=== PATIENT | male | born 1940 | race Caucasian/White ===

== ENCOUNTER 2016-08-02 05:47 | Inpatient (IN) | payer OTHER, MEDICARE ==
--- NOTE | 2016-08-01 08:48 | HPE ---
DATE OF ADMISSION: 08/02/2016 ADMISSION DIAGNOSES: Back pain and pain down both legs, left greater than the right. ATTENDING PHYSICIAN: Dr. Mata HISTORY: This is a pleasant 76-year-old male patient with progressively worsening back pain and pain radiating to both lower extremities, left greater than the right. He has pain with activities of daily living. If he walks any distance he has increased symptoms in both lower extremities. He has tried numerous medications without much improvement. He continues to take gabapentin. He has been through epidural steroid injections and pain blocks without much improvement. Therapy has failed to improve his symptoms. He has elected for surgery for his continued symptoms. He has consented for a left unilateral laminectomy L4-5 and posterior fusion in situ L4-[address] Mata. MRI of his lumbar spine notable for spinal stenosis, particularly at L4-5 with spondylolisthesis at L4-5. Diffuse degenerative changes throughout the lumbar spine also noted. There is some lateral recess spinal stenosis particularly at L4-5 as well on the MRI. Medical optimization pending with his primary, Xiao Zepeda. He also had a cardiology clearance done as well, it is not present for review today. ALLERGIES: BUSPAR and ARAVA. CURRENT MEDICATIONS: - Celebrex 200 mg one tablet once per day - Flonase 50 mcg two sprays as needed in his nose - Lyrica 75 mg one tablet twice a day - gabapentin 300 mg two tablets at bedtime - Combivent inhaler at two puffs up to four times a day as needed - Eliquis 5 mg one tablet twice a day, discontinue that 4 days prior to surgery - atorvastatin 40 mg one tablet once per day - calcium 600 mg one tablet twice a day - Invokana 100 mg one tablet once per day - Zyrtec 10 mg one tablet daily as needed - Hydroxychloroquine 200 mg one tablet once per day - insulin Detemir 100 units per mL, 15 units subcutaneous daily - lisinopril 10 mg one tablet once per day - metformin 500 mg two tablets twice a day - Pantoprazole 40 mg one tablet once per day - prednisone 1 mg one tablet three times a day - Zantac 75 mg one tablet per day as needed - Advair inhaler 230/21 mcg two puffs daily He also takes numerous eye drops that he will bring with him to the hospital. MEDICAL HISTORY: 1. Atrial fibrillation. 2. Atrial flutter. 3. Right bundle branch block. 4. Obesity. 5. Diabetes type 2. 6. Elevated cholesterol. 7. Sleep apnea. 8. Chronic obstructive pulmonary disease (COPD). 9. Lumbar spinal stenosis L4-5 10. Bilateral neurogenic claudication, left greater than the right. PRIOR SURGERY: Includes: 1. Carpal tunnel release. 2. Hemorrhoidectomy. 3. Rotator cuff surgery. 4. Left finger trigger release. 5. Ventral hernia repair. 6. Skin cancer excision. FAMILY HISTORY: Noncontributory. REVIEW OF SYSTEMS: Denies fever or chills. Denies chest pain, shortness breath or cough. Denies difficulty breathing. Denies abdominal pain. Denies nausea or vomiting. Has persistent pain to both lower extremities, left greater than the right. Denies any changes in bowel or bladder habits. PHYSICAL EXAMINATION: Today, reveals a well-nourished, well-developed, alert, male patient who walks with a slow gait. His gait is not wide-based. His mood and affect are appropriate for the situation. His neck is supple without adenopathy or jugular venous distention (JVD). Lungs are clear to auscultation without rales or wheeze. Heart has regular rate and rhythm. Abdomen: Bowel sounds are present. Examination of the back reveals skin to be intact. No erythema, edema or ecchymosis. There is diffuse tenderness around the lumbar spine without step-offs or deviations. Straight leg raise testing is negative. Deep tendon reflexes are absent at the knees, absent at the ankles. Clonus is negative. He is able to appreciate light touch in the lower extremity. He has well perfused lower extremities on exam today. Temperature is 97, height 66 inches, weight 218 pounds. IMPRESSION: Symptomatic spinal stenosis L4-5, as well as lower extremity neurogenic claudication bilaterally, left greater than right. PLAN He has consented for a left L4-5 unilateral decompression and posterior fusion in situ bilaterally.
[~2016-08-02] VITALS: Ht 167.6 cm; Wt 98.9 kg
[2016-08-02] VITALS (7 sets, daily range): BP systolic 98–147; BP diastolic 60–99
[~2016-08-02 05:47] MED LIST: ADVA230A INH; ALL10TAB27 PO; ASPI1TAB PO; ATOR40TA PO; CALC600T10 PO; CELE-19 PO; COMBAER6 INH; ELIQ5TAB PO; EYECAP PO; FISH100049 PO; FLON1SPR; GABA300C3 PO; GLUC1CAP9 PO; HYDR200T3 PO; INVO100T PO; LEVE1INJ5 SC; LISI10TA4 PO; LYRI75CA PO; METF500T PO; MULT1TAB9 PO; PANT40TA2 PO; PRED1TAB69 PO; PRED1TABL PO; RANI75TA9 PO; TRUL10IN SC; VITA100037 PO; VITA200016 PO; [UNRECOGNIZED DRUG - CODE] TOP
[2016-08-02] MEDS ORDERED: PERCOCET 5MG/325MG TAB PO ONE (06:00)
[2016-08-02] MEDS ORDERED: PREGABALIN 75 MG CAP(LYRICA) PO ONE (06:00)
[2016-08-02] MEDS: LR 1,000 ML IV SCH ×3 (07:05→07:30)
[2016-08-02] MEDS ORDERED: THROMBIN SOLN 20,000 UNITS KIT As Ordered ONE (07:25)
[2016-08-02] MEDS ORDERED: BUPIVACAINE/EPIN 0.25% 30 ML VIAL As Ordered ONE (07:25)
[2016-08-02] MEDS ORDERED: BACITRACIN PWD 50,000 UNITS VIAL As Ordered ONE ×2 (07:26→07:32)
[2016-08-02] MEDS ORDERED: VANCOMYCIN HCL 500 MG/10 ML VIAL (J3370) As Ordered ONE (07:26)
[2016-08-02] MEDS ORDERED: DESFLURANE 240 ML INHALANT As Ordered ONE (08:27)
[2016-08-02] MEDS ORDERED: MIDAZOLAM INJ 2 MG/2 ML VIAL (J2250) As Ordered ONE (08:27)
[2016-08-02] MEDS ORDERED: PHENYLEPHRINE INJ 10MG/ML VIAL (J2370) As Ordered ONE (08:27)
[2016-08-02] MEDS ORDERED: ESMOLOL INJ 100MG/10ML VIAL As Ordered ONE (08:27)
[2016-08-02] MEDS ORDERED: fentaNYL 250 MCG/5 ML INJECTION (J3010) As Ordered ONE (08:27)
[2016-08-02] MEDS ORDERED: METOCLOPRAMIDE INJ 10MG/2ML VIAL (J2765) As Ordered ONE (08:34)
[2016-08-02] MEDS ORDERED: PHENYLephrine HCL 500 MCG/5 ML (100MCG/ML) SYRINGE (J2370) As Ordered ONE (08:34)
[2016-08-02] MEDS ORDERED: ROCURONIUM BROMIDE 50 MG/5 ML VIAL As Ordered ONE (08:34)
[2016-08-02] MEDS ORDERED: ONDANSETRON 4MG/2ML VIAL (J2405) As Ordered ONE (08:34)
[2016-08-02] MEDS ORDERED: PROPOFOL 200 MG/20 ML VIAL As Ordered ONE (08:34)
[2016-08-02] MEDS ORDERED: LIDOCAINE 2% INJ 100 MG/5 ML SDV (FOR ANES.) As Ordered ONE (08:34)
[2016-08-02] MEDS ORDERED: NEOSTIGMINE 1MG/ML 5 ML SYRINGE (J2710) As Ordered ONE (08:35)
[2016-08-02] MEDS ORDERED: GLYCOPYRROLATE INJ 0.2 MG/ML 2 ML VIAL As Ordered ONE (08:35)
[2016-08-02] MEDS: PREGABALIN 75 MG CAP(LYRICA) PO SCH ×2 (09:00→20:22)
[2016-08-02] MEDS ORDERED: PANTOPRAZOLE 40MG TAB (PROTONIX) PO SCH (09:00)
[2016-08-02] MEDS ORDERED: BACITRACIN PWD 50,000 UNITS VIAL IR ONE (09:34)
[2016-08-02] MEDS ORDERED: BUPIVACAINE/EPIN 0.25% 30 ML VIAL XX ONE (09:34)
[2016-08-02] MEDS ORDERED: BACITRACIN PWD 50,000 UNITS VIAL XX ONE (09:34)
[2016-08-02] MEDS ORDERED: VANCOMYCIN 500 MG/10 ML XX ONE (09:34)
[2016-08-02] MEDS ORDERED: THROMBIN SOLN 20,000 UNITS KIT XX ONE (09:34)
[2016-08-02] MEDS ORDERED: fentaNYL 100 MCG/2 ML INJECTION (J3010) As Ordered ONE (10:09)
[2016-08-02] MEDS ORDERED: LR 1,000 ML IV SCH (12:00)
[2016-08-02] MEDS ORDERED: ONDANSETRON 4MG/2ML VIAL (J2405) IV PRN (12:00)
[2016-08-02] MEDS ORDERED: PERCOCET 5MG/325MG TAB PO PRN ×2 (12:00→12:15)
[2016-08-02] MEDS ORDERED: HYDROmorphone HCL 1 MG/ML SYRINGE (J1170) IV PRN ×3 (12:00→13:00)
[2016-08-02] MEDS ORDERED: fentaNYL 100 MCG/2 ML INJECTION (J3010) IV PRN (12:00)
[2016-08-02] MEDS: HYDROCORTISONE 100 MG/2 ML VIAL (J1720) IV SCH ×2 (14:06→20:24)
[2016-08-02] MEDS: PERCOCET 5MG/325MG TAB PO PRN ×2 (14:07→22:13)
[2016-08-02] MEDS: D5W/0.45% SODIUM CHLORIDE 1,000 ML IV SCH ×2 (14:12→22:15)
[2016-08-02] MEDS: ONDANSETRON 4MG/2ML VIAL (J2405) IV PRN (14:44)
--- NOTE | 2016-08-02 14:46 | REP ---
PARTIAL LUMBAR SPINE SERIES: SINGLE VIEW. HISTORY: Spinal stenosis. FINDINGS: A cross-table lateral portable view of the lumbar spine time stamped 9:08 a.m. demonstrates an operative probe marker at the dorsal aspect of the spinal canal at the L4-5 disc level. Signed by Eulogio Melchor MD 08/02/2016 04:46 P
[2016-08-02] MEDS: DOCUSATE SODIUM 100 MG CAP PO SCH ×2 (15:45→20:22)
[2016-08-02] MEDS: LISINOPRIL 10 MG TAB PO SCH (15:46)
[2016-08-02] MEDS: raNITIdine SYRUP 150 MG/10 ML UDC PO SCH (15:46)
[2016-08-02] MEDS: HYDROXYCHLOROQUINE 200 MG TAB PO SCH (15:52)
[2016-08-02] MEDS ORDERED: FLUTICASONE PROP 0.05% NASAL SPRAY 16 GM (FLONASE) PRN (17:15)
[2016-08-02] MEDS: HumaLOG INSULIN (NovoLOG) PER UNIT SC SCH ×2 (17:23→20:23)
--- NOTE | 2016-08-02 17:58 | CR ---
DATE OF CONSULTATION: 08/02/2016 CONSULT REQUESTED BY: Dr. Mata. REASON FOR CONSULTATION: Medical management. PRIMARY CARE PROVIDER: Xiao Crane. HISTORY OF PRESENT ILLNESS: Mr. Pastor is a pleasant 76-year-old gentleman with underlying history of atrial fibrillation/ flutter, right bundle branch block, diabetes, obesity, hyperlipidemia, obstructive sleep apnea with continuous positive airway pressure (C-PAP) use, chronic obstructive pulmonary disease ( COPD), bilateral neurogenic claudication left greater than right and lumbar spinal stenosis involving L4-L5. He was admitted today after elective surgery for surgical decompression of the L4-L5 area, after which was determined to be the next step in his treatment due to failed outpatient treatment with medical management and epidural injections. Please refer to the orthopedic history and physical (H P) regarding his symptomatology that qualified him for surgery. Medical optimization was performed by Xiao Crane, and cardiology clearance was performed ahead of time as well. He did tolerate surgery well. He is resting somewhat comfortably at bedside without any specific complaints. PAST MEDICAL HISTORY: 1. Atrial flutter/fibrillation with right bundle branch block. 2. Obesity. 3. Diabetes. 4. Hyperlipidemia. 5. Obstructive sleep apnea with C-PAP use. 6. COPD. 7. Lumbar spinal stenosis L4-5 and bilateral neurogenic claudication. PAST SURGICAL HISTORY: 1. Has had skin excision for possible skin cancer in the past. 2. Ventral hernia repair. 3. Hemorrhoidectomy. 4. Rotator cuff surgery. 5. Carpal tunnel release and left trigger finger release. FAMILY HISTORY: Noncontributory. SOCIAL HISTORY: Quit smoking several years ago. He is , lives at home with his . No alcohol use. No recent travel. No sick contacts. ALLERGIES: BUSPAR and ARAVA CURRENT MEDICATIONS: There is some discrepancy to his medication list . Will wait official medication reconciliation. Appreciate pharmacy's assistance. REVIEW OF SYSTEMS: CONSTITUTIONAL: He denies fevers, chills, rigors, weight loss. No change in appetite. HEENT: Denies headache, lightheaded, dizziness, blurry vision, double vision or tinnitus. No difficulty with speech or swallow. PULMONARY: Denies productive sputum, cough or hemoptysis. Does have an underlying history of COPD and obstructive sleep apnea for which he uses C-PAP. He denies hematemesis. No hemoptysis. CARDIOVASCULAR: Prior history of atrial fibrillation. He denies palpitations, chest pain, paroxysmal nocturnal dyspnea (PND), orthopnea or lower extremity edema. GASTROINTESTINAL (GI): No nausea, vomiting, diarrhea. Bowel movements regular. Denies any hematochezia or melena. GENITOURINARY (): No dysuria, frequency, hematuria. MUSCULOSKELETAL: As outlined above. He does have chronic back pain with radiation to his lower legs, worse with walking any significant amount of distance, and underwent surgical decompression with Dr. Mata today. NEUROLOGIC: Denies paresthesias or paralysis. No history of seizure disorder. No history of migraines. ENDOCRINE: Positive for diabetes. Negative for thyroid disorder. LYMPHATICS: No lumps, bumps, swelling neck, axilla or groin. No night sweats. No weight loss. HEMATOLOGY: No history of bleeding or bruising disorder. Denies venous thromboembolism. ONCOLOGY: No history of cancer. PSYCHIATRIC: No history of depression. No suicidal ideation. No auditory or visual hallucinations. 10-point review of systems complete; pertinent positives are listed. PHYSICAL EXAMINATION: VITAL SIGNS: Temperature is 97.3, pulse 100, respiratory rate 18, blood pressure 138/80, SPO2 is 96% on two liters. GENERAL: The patient appears to be in no acute distress. Is alert and oriented. HEENT: Unremarkable. LUNGS: Clear. HEART: Regular. ABDOMEN: Soft. EXTREMITIES: No edema. No calf tenderness. LABORATORY DATA: Is pending for tomorrow. IMPRESSION: Mr. Pastor is a pleasant 76-year-old gentleman with multiple medical issues as outlined above. He is status post postoperative day zero for decompressive surgery with Dr. Mata for his spinal stenosis. He is resting comfortably in bed. Pain appears to be adequately controlled. PROBLEM LIST: 1. Spinal stenosis status post surgical decompression. 2. Diabetes. 3. Atrial fibrillation. 4. Hyperlipidemia. 5. Hypertension. 6. Gastroesophageal reflux disease (GERD). 7. The patient states he has history of rheumatoid arthritis. 8. Chronic obstructive pulmonary disease (COPD). RECOMMENDATIONS: Will reconcile his medications. Would encourage incentive spirometry, DuoNeb as needed. Pain management, physical therapy. Deep venous thrombosis (DVT) prophylaxis per surgery and will continue to follow along daily during his hospital course. Thank you for involving the hospitalists group with the care of this patient. Any further questions, please do not hesitate to contact the service. Of
[2016-08-02] MEDS: LEVEMIR (INSULIN DETEMIR) 1 UNITS/0.01ML SC SCH (20:22)
[2016-08-02] MEDS: ATORVASTATIN 20 MG TAB PO SCH (20:22)
[2016-08-02] MEDS: GABAPENTIN 300 MG CAP PO SCH (20:23)
[2016-08-03 02:00] VITALS: BP 131/73
[2016-08-03] MEDS: HYDROCORTISONE 100 MG/2 ML VIAL (J1720) IV SCH (04:33)
[2016-08-03] MEDS: PERCOCET 5MG/325MG TAB PO PRN ×4 (04:40→20:54)
[2016-08-03] MEDS: ONDANSETRON 4MG/2ML VIAL (J2405) IV PRN ×2 (04:52→11:29)
[2016-08-03 06:00] VITALS: BP 108/58
[2016-08-03 07:03] LABS: ANION GAP 9 MEQ/L (8-16); BLOOD UREA NITROGEN 18 MG/DL (7-18); CALCIUM LEVEL 8.1 MG/DL (8.8-10.2); CARBON DIOXIDE LEVEL 27 MEQ/L (21-32); CHLORIDE LEVEL 101 MEQ/L (98-107); CREATININE FOR GFR 0.98 MG/DL (0.70-1.30); GLOMERULAR FILTRATION RATE > 60.0 (>42); GLUCOSE, FASTING 151 MG/DL (83-110); MAGNESIUM LEVEL 1.9 MG/DL (1.8-2.4); POTASSIUM SERUM 3.8 MEQ/L (3.5-5.1); SODIUM LEVEL 137 MEQ/L (136-145)
[2016-08-03 08:09] LABS: MEAN CORPUSCULAR HEMOGLOBIN 29.1 pg (27.0-33.0); MEAN CORPUSCULAR HGB CONC 33.4 g/dl (32.0-36.5); MEAN CORPUSCULAR VOLUME 87.1 fl (80.0-96.0); RED CELL DISTRIBUTION WIDTH 13.8 % (11.5-14.5); WHITE BLOOD COUNT 13.6 K/mm3 (4.0-10.0)
[2016-08-03] MEDS: MIRALAX *UNIT DOSE* 17GM PACKET PO SCH (08:35)
[2016-08-03] MEDS: predniSONE 1 MG TAB PO SCH ×3 (08:36→20:56)
[2016-08-03] MEDS: PANTOPRAZOLE 40MG TAB (PROTONIX) PO SCH (08:36)
[2016-08-03] MEDS: DOCUSATE SODIUM 100 MG CAP PO SCH ×2 (08:36→20:56)
[2016-08-03] MEDS: HYDROXYCHLOROQUINE 200 MG TAB PO SCH (08:36)
[2016-08-03] MEDS: MULTIVITAMINS/MINERALS THERAP 1 TAB PO SCH (08:36)
[2016-08-03] MEDS: PREGABALIN 75 MG CAP(LYRICA) PO SCH ×2 (08:36→20:56)
[2016-08-03] MEDS: LISINOPRIL 10 MG TAB PO SCH (08:36)
[2016-08-03] MEDS: CETIRIZINE (ZyrTEC) 10 MG TAB PO SCH (08:36)
[2016-08-03] MEDS: OCUVITE 1 TAB PO SCH (08:36)
[2016-08-03] MEDS: raNITIdine SYRUP 150 MG/10 ML UDC PO SCH ×2 (08:37→20:54)
[2016-08-03] MEDS: HumaLOG INSULIN (NovoLOG) PER UNIT SC SCH ×4 (08:37→20:07)
[2016-08-03] MEDS: MOM 30ML SUSPENSION UDC PO SCH (08:38)
[2016-08-03] MEDS ORDERED: INVOKANA 100 MG PO SCH (09:00)
[2016-08-03] MEDS ORDERED: ADVAIR HFA 230/21 INHALER INH SCH (09:00)
[2016-08-03] MEDS ORDERED: LISINOPRIL 10 MG TAB PO SCH (09:00)
--- NOTE | 2016-08-03 10:31 | IPN ---
DATE: 08/03/2016 76-year-old gentleman seen at bedside. No overnight issues reported. Resting comfortably. He did have a one time episode of vomiting last evening, but he feels that he slept through the night relatively well otherwise. OBJECTIVE Temperature is 98.3, pulse 95, respiratory rate is 20, blood pressure 108/58, SpO2 is 92% on 2 liters. GENERAL: The patient appears to be in no acute distress. He is alert and oriented. HEENT: Unremarkable. LUNGS: Clear. HEART: Regular rate and rhythm. ABDOMEN: Distended. Positive bowel sounds. No masses. No rebound. He informs me it has been 2-3 days since his last bowel movement. LABORATORIES: White count 13.6, hemoglobin is 11.1, platelets 179. Sodium 137, potassium 3.8, chloride 101, bicarb 27, anion gap 9, BUN is 18, creatinine 0.98, glucose 151, magnesium 1.9. ASSESSMENT/PLAN: 1. Spinal stenosis status post surgical decompression. Appreciate surgery's involvement here. 2. Diabetes. Continue with fingersticks before meals and at bedtime with sliding scale coverage. 3. Atrial fibrillation. He is rate controlled. Currently holding the Eliquis. 4. Hyperlipidemia. Continue statin. 5. Hypertension. Continue blood pressure medications with hold parameters. 6. Gastroesophageal reflux disease (GERD). Stable. 7. History of rheumatoid arthritis. He can followup with his regular provider for outpatient management. 8. Chronic obstructive pulmonary disease (COPD). Continue DuoNebs as needed. 9. Deep vein thrombosis (DVT) prophylaxis with thromboembolic deterrent stockings (TEDS) and sequentials. Concerning the Eliquis, will wait till day 3 before resuming this. Today is postop day 1.
--- NOTE | 2016-08-03 13:02 | RO ---
DATE OF PROCEDURE: 08/02/2016 PREOPERATIVE DIAGNOSES: Lumbar spinal stenosis with left more than right lower extremity neurogenic claudication combined with facet subluxation and arthropathy at L4-5. POSTOPERATIVE DIAGNOSES: Lumbar spinal stenosis with left more than right lower extremity neurogenic claudication combined with facet subluxation and arthropathy at L4-5. PROCEDURE PERFORMED: Includes the following: Left L4 unilateral laminectomy for decompression of the thecal sac and exiting nerve root, left L5 unilateral laminectomy thecal sac and traversing nerve root, lateral recess decompression accomplished through this incision bilaterally, posterior intertransverse fusion in situ L4 transverse process bilateral to the L5 transverse process bilateral, harvest and placement of local autograft for spine surgery, morselized laminar fragments. SURGEON: Dr. Krish Mata. MOBILE HOME SERVICER: Abner Grossman PA-C. ANESTHESIA: General Dr. Post. ESTIMATED BLOOD LOSS: Less than 200 mL, replaced with crystalloid. COMPLICATIONS: None. INDICATIONS: Mr. Pastor is a 76-year-old gentleman with progressive discomfort radiating into the left more than right lower extremity and MRI evidence of significant multilevel degenerative changes, spinal stenosis and at 4-5 severe facet arthropathy including fluid-filled facets and some facet subluxation. Next, he has elected for surgery. Consent reviewed in detail including robin discussion of the pathology involved, the procedure proposed, alternatives including doing nothing or doing more surgery since the patient does have diffuse degenerative change. We talked about risks including but not limited to pain, failure, infection, need for more surgery and other issues. The patient wants to proceed. OPERATIVE COURSE: Identified in the holding area, site side verified, brought to the operating room, stress dose steroids were administered per primary care. Once he was intubated and positioned on the Camilo table for exposure of the lumbar spine, then we began the case. Once I and the help desk assistant was comfortable with the patient's positioning, he was sterilely prepped, draped in usual fashion. I stood on the patient's left, Mr. Grossman on the right. First portion of the procedure accomplished using loop and headlamp. The line of the incision was based on bony landmarks, infiltrated with 0.25% Marcaine with epinephrine and made with a 10 blade knife developed down through skin and subcuticular tissues to the posterior lumbar fascia. The spinous process of 5 and 4 were palpated. Posterior lumbar fascia was reflected off the spinous process of 5 and continued down the L5 lamina exposing the L4-5 interspace and posterior lamina of 4. The high-speed drill was utilized to drill a 5 mm divot into the posterior lamina of 4 and a Castillo-Hunter was placed here. Next, the x-ray licensed veterinary technician was then made available to take cross-table lateral to verify our level. Next, at this stage, Mr. Grossman utilized Mamadou retractors to retract the posterior musculature and I dissected out over the transverse processes on the left side at 4 and 5 exposing them. Next, Leksell was utilized to remove posterior lamina of L4 and L5 and this was retained as bone graft. Next, I utilized the Sprookis trap along with the high-speed bur to implement the remaining bony portions of the laminectomy. This involved undercutting the spinous process of L4, continuing the laminectomy to the bare area of 4, medially to the medial aspect of the facet. I also utilized osteotome to remove the medial 50% of the L4-5 facet complex, the inferior facet of 4. Next, the dissection continued through the bare area of L5 and undercutting the spinous process of 5, we then elevated the posterior longitudinal ligament using curettes and removed it exposing the thecal sac. Next, I decompressed the lateral recess on the patient's left side using #2 Kerrison's as well as curettes. Once this was accomplished, I was able to reach over the horizon by tilting the patient's surgical table and manipulating the microscope. This portion of the procedure was done using the operating microscope. Next, curettes were utilized to palpate and debride some of the hypertrophied ligamentum flavum on the patient's right side and I utilized curved as well as straight number 2 mm Kerrison's to accomplish this. Next, we were able to probe the neural foramina bilaterally and the 4-5 neural foramina appeared to be intact. Next, irrigation was accomplished. No active bleeding was appreciated. No CSF leak was appreciated. Next, at this stage, we proceeded with the remainder of the procedure. Our bur millings had been collected in the Sprookis trap and the Vivigen bone graft had been prepared. Next, the patient's right side, we after the decompression then exposed on the right side by dividing the posterior lumbar fascia. Midline interspinous ligament was left intact. Dissection continued over the L4-5 facet and exposed the L4 and L5 transverse process. Bipolar cautery was utilized for hemostasis. High-speed bur was utilized to decorticate that facet at 4-5 and the transverse process of 4-5. Next, the Vivigen bone graft 10 mL was mixed with approximately 10 mL of local bone and Leksell bites. This was then placed between the transverse processes of 4 and 5 and also in the interlaminar space and over the facet complex of 4-5 on the patient's right. Next I retracted with Mamadou retractors exposing the transverse process of 4 and 5 on the patient's left side and Mr. Grossman placed the remaining Vivigen and local bone mixture between the transverse processes of 4 and 5 on the patient's left. I inspected the midline and ensured that there was no material or cottonoids left around the thecal sac. Irrigation was accomplished. Next, vancomycin crystals were placed over the paraspinal muscles. Next, we also irrigated with concentrated bacitracin. Next, posterior lumbar fascia was reapproximated with interrupted stitch, deep dermis with interrupted stitch. Skin was closed with #2-0 Vicryl followed by Pernio dressing. The patient tolerated the procedure well, was moved to the recovery room in good condition and was moving all four extremities. Teredarenjeff was present and participated in the entirety of the case.
[2016-08-03 14:00] VITALS: BP 97/60
[2016-08-03] MEDS: ADVAIR HFA 230/21 INHALER INH SCH (20:41)
[2016-08-03] MEDS: GABAPENTIN 300 MG CAP PO SCH (20:57)
[2016-08-03 21:00] VITALS: BP 100/55
[2016-08-03] MEDS: LEVEMIR (INSULIN DETEMIR) 1 UNITS/0.01ML SC SCH (21:17)
[2016-08-03] MEDS: ATORVASTATIN 20 MG TAB PO SCH (21:17)
[2016-08-03 22:00] VITALS: BP 100/55
[2016-08-04 06:00] VITALS: BP 118/67
[2016-08-04] MEDS: PERCOCET 5MG/325MG TAB PO PRN ×2 (06:15→10:32)
[2016-08-04 06:46] LABS: CREATININE FOR GFR 1.33 MG/DL (0.70-1.30); GLOMERULAR FILTRATION RATE 55.4 (>42); MAGNESIUM LEVEL 2.4 MG/DL (1.8-2.4); POTASSIUM SERUM 4.1 MEQ/L (3.5-5.1)
[2016-08-04] MEDS ORDERED: FLEET ENEMA PR PRN (08:00)
[2016-08-04] MEDS: ADVAIR HFA 230/21 INHALER INH SCH (08:00)
[2016-08-04] MEDS: predniSONE 1 MG TAB PO SCH ×3 (08:05→22:03)
[2016-08-04] MEDS: PREGABALIN 75 MG CAP(LYRICA) PO SCH (08:05)
[2016-08-04] MEDS: DOCUSATE SODIUM 100 MG CAP PO SCH ×2 (08:05→21:07)
[2016-08-04] MEDS: CETIRIZINE (ZyrTEC) 10 MG TAB PO SCH (08:05)
[2016-08-04] MEDS: OCUVITE 1 TAB PO SCH (08:06)
[2016-08-04] MEDS: MULTIVITAMINS/MINERALS THERAP 1 TAB PO SCH (08:06)
[2016-08-04] MEDS: HYDROXYCHLOROQUINE 200 MG TAB PO SCH (08:06)
[2016-08-04] MEDS: HumaLOG INSULIN (NovoLOG) PER UNIT SC SCH ×4 (08:06→20:24)
[2016-08-04] MEDS: MIRALAX *UNIT DOSE* 17GM PACKET PO SCH (08:06)
[2016-08-04] MEDS: MOM 30ML SUSPENSION UDC PO SCH (08:06)
[2016-08-04] MEDS: NS 1,000 ML IV SCH ×2 (08:07→17:11)
[2016-08-04] MEDS: PANTOPRAZOLE 40MG TAB (PROTONIX) PO SCH (08:07)
[2016-08-04] MEDS ORDERED: FLEET ENEMA PR ONE (09:00)
--- NOTE | 2016-08-04 09:02 | IPN ---
DATE: 08/04/2016 A 76-year-old male seen at bedside. No overnight issues reported. He is resting comfortably at bedside. He did have, however, this morning have some difficulty with voiding. He denies chest pain or shortness of breath. No abdominal pain. OBJECTIVE: VITAL SIGNS: Temperature is 99.7, pulse 91, respiratory rate 18, blood pressure 118/67, 93% on two liters. GENERAL: The patient appears to be in no acute distress. He is alert, pleasant talk to. HEENT: Unremarkable. LUNGS: Clear. HEART: Regular rate and rhythm. ABDOMEN: Appears to be slightly distended with positive bowel sounds. No masses. No rebound. EXTREMITIES: No edema. No calf tenderness. LABORATORY DATA: Chemistry shows a sodium of 135, potassium 4.1, chloride 98, bicarbonate 30, anion gap 7, BUN is 29, creatinine 1.33 which is elevated from yesterday. We did add on a CBC which was not drawn today. ASSESSMENT AND PLAN: 1. Spinal stenosis status post surgical decompression. Appreciate surgery's involvement. 2. Diabetes. Continue with fingersticks before meals and at bedtime, sliding-scale coverage. 3. Difficulty voiding this morning. We will do a postvoid residual to see if he is having any issues here. 4. Elevated creatinine, perhaps some mild acute kidney injury (LILIA). We will hold his lisinopril. I did give him a liter of normal saline and we will repeat the renal profile at noon. 5. Atrial fibrillation. He is rate controlled. We will plan on resuming Eliquis tomorrow. 6. Hyperlipidemia. Continue statin. 7. Hypertension, stable on current blood pressure medications with hold parameters. Again, lisinopril was placed on hold today due to elevated creatinine. 8. Gastroesophageal reflux disease (GERD), stable. 9. History of rheumatoid arthritis. He can followup with his outpatient provider. 10. Chronic obstructive pulmonary disease (COPD). Continue with DuoNebs, incentive spirometer, and encouraged to ambulate. 11. Deep vein thrombosis (DVT) prophylaxis. Thromboembolic-deterrent stockings (TEDS), sequentials, and plan on resuming Eliquis tomorrow. This is postoperative day number two and we will see how he continues to do with physical therapy.
[2016-08-04] MEDS ORDERED: MAGNESIUM CITRATE 300 ML BTL PO PRN (12:00)
[2016-08-04 12:19] LABS: ALBUMIN 3.1 GM/DL (3.2-5.2); CALCIUM LEVEL 7.5 MG/DL (8.8-10.2); CREATININE FOR GFR 1.36 MG/DL (0.70-1.30); PHOSPHORUS LEVEL 2.7 MG/DL (2.5-4.9); POTASSIUM SERUM 3.9 MEQ/L (3.5-5.1)
[2016-08-04 14:00] VITALS: BP 138/86
[2016-08-04 18:32] VITALS: BP 141/81
[2016-08-04] MEDS: ACETAMINOPHEN TAB 650MG DOSE (2X325MG) PO PRN (18:45)
[2016-08-04 19:15] LABS: BASO % 0.3 % (0.0-1.0); EOS # 0.1 K/mm3 (0.0-0.50); LARGE UNSTAINED CELL # 0.2 K/mm3 (0.0-0.4); LARGE UNSTAINED CELL % 2.4 % (0.0-4.0); LYMPH # 0.9 K/mm3 (1.5-4.5); LYMPH % 6.9 % (24.0-44.0); MEAN CORPUSCULAR HEMOGLOBIN 28.7 pg (27.0-33.0); MEAN CORPUSCULAR HGB CONC 32.7 g/dl (32.0-36.5); MEAN CORPUSCULAR VOLUME 87.6 fl (80.0-96.0); MONO # 1.2 K/mm3 (0.0-0.8); MONO % 11.7 % (0.0-5.0); NEUTROPHILS # 7.8 K/mm3 (1.8-7.7); NEUTROPHILS % 77.7 % (36.0-66.0); PLATELET COUNT, AUTOMATED 190 k/mm3 (150-450)
--- NOTE | 2016-08-04 20:17 | PHACANCOPD ---
PHARMACY VANCOMYCIN DOSING Pt Demographics Demographics Patient Age:76 , Weight:98.880 , Gender: male Adjusted Body Weight Date: 08/04/16, Adjusted Body Weight: [78] Kg Events Past 24 Hours Events Past 24 Hours: NO: Change in CrCl, Dialysis, Diuretic Therapy, Elevation in WBC, Fever, Other, Pending Diagnostics, Pending Procedures Vancomycin Vancomycin Target Ranges: 15-20 mcg/ml Vancomycin Load Y/N: Yes Load Dose Date Time Vancomycin Load Dose: 2000MG Date: 08-04 Time: 2100 Vancomycin Dose Date: 08/04/16. Current Vancomycin Dose: [1000MG Q24H] Intermittent Dosing?: No Labs Labs Item Value Date Time White Blood Count 10.0 K/mm3 08/04/16 1908 Creatinine 1.36 MG/DL H 08/04/16 1152 Vital Signs Label Value Date Time Patient Temperature 100.8 degrees F 08/04/16 1832 Micro Microbiology 08/04/16 Blood Culture, Received Pending 08/04/16 Blood Culture, Received Pending Creatinine Clearance Date:08/04/16. Creatinine Clearance: [40]. Pending Labs Trough Assessment and Plan Maintaining Current Dose?: Yes Reason for dose change: No Dose Change Pharmacist Note Pharmacist Note Date: 08/04/16. Pharmacist note:Dosed @ 1000mg q24h with a trough scheduled for . Will continue to monitor and make adjustments as needed. [facility] Aug 04, 2016 20:17
[2016-08-04] MEDS ORDERED: VANCOMYCIN HCL 1,000 MG, VIAL MATE ADAPTER 1 EACH in D5W 250 ML IV SCH (21:00)
[2016-08-04] MEDS: traMADol 50 MG TAB PO PRN (21:06)
[2016-08-04] MEDS: GABAPENTIN 300 MG CAP PO SCH (21:07)
[2016-08-04] MEDS: ATORVASTATIN 20 MG TAB PO SCH (21:08)
[2016-08-04] MEDS: LEVEMIR (INSULIN DETEMIR) 1 UNITS/0.01ML SC SCH (21:09)
[2016-08-04] MEDS: raNITIdine SYRUP 150 MG/10 ML UDC PO SCH (21:09)
[2016-08-04 22:00] VITALS: BP 129/77
[2016-08-04] MEDS ORDERED: VANCOMYCIN HCL 1,000 MG, VIAL MATE ADAPTER 1 EACH in D5W 250 ML IV ONE (22:00)
[2016-08-05] MEDS: MEROPENEM INJ 1 GM in D5W MINI-BAG PLUS 100 ML IV SCH ×2 (00:04→12:42)
[2016-08-05] MEDS: ADVAIR HFA 230/21 INHALER INH SCH ×3 (00:09→21:58)
[2016-08-05] MEDS: NS 1,000 ML IV SCH ×2 (04:16→13:30)
[2016-08-05] MEDS: traMADol 50 MG TAB PO PRN ×2 (05:56→12:52)
[2016-08-05 06:00] VITALS: BP 120/70
[2016-08-05] MEDS: COMBIVENT RESPIMAT 100-20MCG INHALER 4GM INH PRN (06:18)
[2016-08-05 06:51] LABS: MEAN CORPUSCULAR HEMOGLOBIN 28.4 pg (27.0-33.0); MEAN CORPUSCULAR HGB CONC 32.8 g/dl (32.0-36.5); MEAN CORPUSCULAR VOLUME 86.6 fl (80.0-96.0); RED CELL DISTRIBUTION WIDTH 13.9 % (11.5-14.5); WHITE BLOOD COUNT 9.8 K/mm3 (4.0-10.0)
[2016-08-05 07:02] LABS: ANION GAP 8 MEQ/L (8-16); BLOOD UREA NITROGEN 16 MG/DL (7-18); CALCIUM LEVEL 7.8 MG/DL (8.8-10.2); CARBON DIOXIDE LEVEL 29 MEQ/L (21-32); CHLORIDE LEVEL 100 MEQ/L (98-107); CREATININE FOR GFR 0.88 MG/DL (0.70-1.30); GLOMERULAR FILTRATION RATE > 60.0 (>42); GLUCOSE, FASTING 143 MG/DL (83-110); POTASSIUM SERUM 4.1 MEQ/L (3.5-5.1); SODIUM LEVEL 137 MEQ/L (136-145)
[2016-08-05] MEDS: HumaLOG INSULIN (NovoLOG) PER UNIT SC SCH ×4 (07:30→20:41)
[2016-08-05] MEDS ORDERED: MAGNESIUM CITRATE 300 ML BTL PO ONE (08:15)
[2016-08-05] MEDS: MOM 30ML SUSPENSION UDC PO SCH (08:19)
[2016-08-05] MEDS: MIRALAX *UNIT DOSE* 17GM PACKET PO SCH (08:19)
[2016-08-05] MEDS: DOCUSATE SODIUM 100 MG CAP PO SCH ×2 (08:20→20:36)
[2016-08-05] MEDS: MULTIVITAMINS/MINERALS THERAP 1 TAB PO SCH (08:20)
[2016-08-05] MEDS: HYDROXYCHLOROQUINE 200 MG TAB PO SCH (08:20)
[2016-08-05] MEDS: predniSONE 1 MG TAB PO SCH ×3 (08:20→20:29)
[2016-08-05] MEDS: PANTOPRAZOLE 40MG TAB (PROTONIX) PO SCH (08:20)
[2016-08-05] MEDS: OCUVITE 1 TAB PO SCH (08:20)
[2016-08-05] MEDS: CETIRIZINE (ZyrTEC) 10 MG TAB PO SCH (08:20)
[2016-08-05] MEDS: APIXABAN 5 MG TAB (ELIQUIS) PO SCH ×2 (08:20→20:30)
[2016-08-05] MEDS ORDERED: MAGNESIUM CITRATE 300 ML BTL PO PRN (08:30)
[2016-08-05] MEDS ORDERED: APIXABAN 5 MG TAB (ELIQUIS) PO SCH (09:00)
--- NOTE | 2016-08-05 09:04 | REP ---
CHEST, PORTABLE: AP portable view of the chest is performed. COMPARISON: 05/14/2016 There is mild cardiomegaly with mild vascular congestion. No focal infiltrate is seen. The mediastinal silhouette is unchanged. IMPRESSION: Mild cardiomegaly. No definite acute infiltrate. Signed by Wilfredo Arce MD 08/05/2016 04:12 P
[2016-08-05] MEDS: PREGABALIN 50 MG CAP (LYRICA) PO SCH ×2 (10:22→20:30)
--- NOTE | 2016-08-05 12:51 | REP ---
KUB ABDOMEN AND PELVIS: Two KUB films of abdomen and pelvis performed. Stomach demonstrates a mild amount of air without significant distension. There is mild scattered air and fecal material throughout the colon. Several mildly dilated small bowel loops in the mid abdomen may represent a mild ileus. Multiple metallic severo are seen overlying the abdomen. There are degenerative changes of the spine. IMPRESSION: Several mildly dilated small bowel loops in the mid abdomen may represent a mild postsurgical ileus. No definite radiographic evidence for significant bowel obstruction. Signed by Wilfredo Arce MD 08/05/2016 04:16 P
[2016-08-05] MEDS ORDERED: traMADol 50 MG TAB PO PRN (13:30)
[2016-08-05] MEDS ORDERED: traMADol 50 MG TAB PO ONE (13:45)
[2016-08-05 14:00] VITALS: BP 128/68
[2016-08-05] MEDS: METOPROLOL TART 12.5 MG PER 1/2 TAB PO SCH ×2 (14:32→20:36)
--- NOTE | 2016-08-05 14:36 | IPNPDOC ---
Date Seen The patient was seen on 08/05/16. Progress Note Hospitalist Progress Note Subjective: Patient states that he doesn't feel particularly well, but he is unable to articulate any specific complaint Objective: Physical Exam: Vitals: Vital Sign - Last 24 Hours 08/04/16 08/04/16 08/04/16 08/04/16 17:45 18:32 21:00 21:06 Temp 100.8 Pulse 121 Resp 18 16 B/P 141/81 Pulse Ox 90 O2 Delivery Room Air Room Air 08/04/16 08/05/16 08/05/16 08/05/16 22:00 05:56 06:00 10:53 Temp 99.0 99.6 Pulse 115 117 Resp 20 16 20 B/P 129/77 120/70 Pulse Ox 92 92 O2 Delivery Room Air Room Air Room Air 08/05/16 08/05/16 08/05/16 08/05/16 12:52 13:22 14:32 14:33 Pulse 102 Resp 18 18 18 B/P 129/62 General: Awake, alert, no acute distress HEENT: Normocephalic, atraumatic, extraocular movements intact CV: Irregularly irregular Lungs: Clear to auscultation bilaterally Abd: Soft, nontender, distended, good bowel sounds Extremities: No edema Neuro: Alert and oriented 3 Psych: Normal mood and affect Labs and Imaging: Laboratory Tests 08/04/16 19:08 Red Blood Count 4.00 L, Mean Corpuscular Volume 87.6, Mean Corpuscular Hemoglobin 28.7, Mean Corpuscular Hemoglobin Concent 32.7, Red Cell Distribution Width 14.0, Neutrophils (%) (Auto) 77.7 H, Lymphocytes (%) (Auto) 6.9 L, Monocytes (%) (Auto) 11.7 H, Eosinophils (%) (Auto) 1.0, Basophils (%) ( Auto) 0.3, Neutrophils # (Auto) 7.8 H, Lymphocytes # (Auto) 0.9 L, Monocytes # ( Auto) 1.2 H, Eosinophils # (Auto) 0.1, Basophils # (Auto) 0.0 08/05/16 06:30 Red Blood Count 3.59 L, Mean Corpuscular Volume 86.6, Mean Corpuscular Hemoglobin 28.4, Mean Corpuscular Hemoglobin Concent 32.8, Red Cell Distribution Width 13.9, Calcium Level 7.8 L Assessment and Plan: 76-year-old male with history of A. fib/flutter, right bundle branch block, diabetes mellitus type 2, obesity, hyperlipidemia, DEVIKA on CPAP, COPD, rheumatoid arthritis, bilateral neurogenic claudication secondary to lumbar spinal stenosis who was admitted to the service of Dr. Mata and has undergone surgical decompression at L4-L5. We have been consulted for medical management. 1. Fever on 08/04/2016: The patient had a fever last night to 100.8. A UA and chest x-ray were unremarkable for infection. White count is normal. Cultures are pending. At the time, the patient received a dose of vanc and Merrem. Since we do not have a clear source of infection, and this mild postoperative fever could be secondary to atelectasis, I will stop the vanc and Merrem at this time. We will continue to follow up the cultures and monitor the fever curve. The patient is currently not ill appearing. 2. Abdominal distention: A KUB today shows a possible mild postoperative ileus. The patient is not currently vomiting, and he has good bowel sounds and is passing flatus. We will give the patient mag citrate and see if we can get his bowels moving that way. At this time, given his active bowel sounds, I do not think that we need to place an NG or make him nothing by mouth. However, if he were to start vomiting, we would reevaluate the situation. 3. A. fib/flutter: The patient has been restarted on his Eliquis. He has had heart rates in the 110s today, so we will start him on scheduled metoprolol. 4. Diabetes mellitus type 2: Continue sliding scale insulin. Continue Levemir 15 units at bedtime. Currently holding home metformin, invokana, and trulicity. 5. COPD: Currently on room air. Continue home Advair, Combivent, Flonase, and Zyrtec. 6. Rheumatoid arthritis: Continue home prednisone and Plaquenil. 7. Difficulty voiding on 08/04/2016: This now appears to have resolved. We'll continue to monitor. 8. Hyperlipidemia: Continue home statin. 9. Acute kidney injury: Creatinine had bumped to low ones. It has now resolved. MARSHALL inhibitor is currently on hold. We will stop IV fluids at this time. DVT prophylaxis: eliquis Dispo: at the discretion of the primary team VS, I&O, 24H, Fishbone Vital Signs/I&O Vital Signs Date Time Temp Pulse Resp B/P Pulse Ox O2 Delivery O2 Flow Rate FiO2 08/05/16 14:33 18 08/05/16 14:32 102 129/62 08/05/16 10:53 Room Air 08/05/16 06:00 99.6 92 08/04/16 14:00 2.0 I&O- Last 24 Hours up to 6 AM 08/05/16 06:00 Intake Total 3780 ml Output Total 3520 ml Balance 260 ml Laboratory Data 24H LABS Laboratory Tests 2 08/04/16 16:38: Bedside Glucose (Misc Panel) 151H 08/04/16 19:08: White Blood Count 10.0, Red Blood Count 4.00L, Hemoglobin 11.5L, Hematocrit 35.0L, Mean Corpuscular Volume 87.6, Mean Corpuscular Hemoglobin 28.7, Mean Corpuscular Hemoglobin Concent 32.7, Red Cell Distribution Width 14.0, Platelet Count 190, Neutrophils (%) (Auto) 77.7H, Lymphocytes (%) (Auto) 6.9L, Monocytes (%) (Auto) 11.7H, Eosinophils (%) (Auto) 1.0, Basophils (%) (Auto) 0.3, Neutrophils # (Auto) 7.8H, Lymphocytes # (Auto) 0.9L, Monocytes # (Auto) 1.2H, Eosinophils # (Auto) 0.1, Basophils # (Auto) 0.0, Large Unclassified Cells # 0.2 , Large Unclassified Cells % 2.4 08/04/16 20:11: Urine Amorphous Sediment , Urine Appearance HAZY, Urine Color YELLOW, Urine pH 5.0, Urine Specific [place] 1.013, Urine Protein NEGATIVE, Urine Glucose (UA) 3+ H, Urine Ketones NEGATIVE, Urine Urobilinogen 0.2, Urine Bilirubin NEGATIVE, Urine Leukocyte Esterase NEGATIVE, Urine Bacteria (Auto) NEGATIVE, Urine Blood NEGATIVE, Urine Calcium Carbonate Cryst(Auto) , Urine Calcium Oxalate Cryst ( Auto) , Urine Calcium Phosphate [place] (Auto) , Urine Cellular Casts , Urine Cystine Crystals , Urine Granular Casts (Auto) , Urine Hyaline Casts (Auto) 0, Urine Leucine Crystals , Urine Mucus (Auto) SMALL, Urine Nitrite NEGATIVE, Urine Oval Fat Bodies (Auto) , Urine RBC (Auto) 0, Urine Renal Epithelial Cells , Urine Sperm (Auto) , Urine Squamous Epithelial Cells 1, Urine Transitional Epithelial Cells , Urine Trichomonas (Auto) , Urine Triple Phosphate Cryst (Auto ) , Urine Tyrosine Crystals , Urine Uric Acid Crystals (Auto) , Urine WBC (Auto ) 3, Urine Waxy Casts (Auto) , Urine Yeast-Like Cells (Auto) 08/04/16 20:17: Bedside Glucose (Misc Panel) 184H 08/05/16 06:30: Anion Gap 8, Blood Urea Nitrogen 16, Creatinine 0.88, Sodium Level 137, Potassium Level 4.1, Chloride Level 100, Carbon Dioxide Level 29, Calcium Level 7.8L, Glomerular Filtration Rate > 60.0 08/05/16 11:46: Bedside Glucose (Misc Panel) 168H CBC/BMP Laboratory Tests 08/04/16 19:08 Red Blood Count 4.00 L, Mean Corpuscular Volume 87.6, Mean Corpuscular Hemoglobin 28.7, Mean Corpuscular Hemoglobin Concent 32.7, Red Cell Distribution Width 14.0, Neutrophils (%) (Auto) 77.7 H, Lymphocytes (%) (Auto) 6.9 L, Monocytes (%) (Auto) 11.7 H, Eosinophils (%) (Auto) 1.0, Basophils (%) ( Auto) 0.3, Neutrophils # (Auto) 7.8 H, Lymphocytes # (Auto) 0.9 L, Monocytes # ( Auto) 1.2 H, Eosinophils # (Auto) 0.1, Basophils # (Auto) 0.0 08/05/16 06:30 Red Blood Count 3.59 L, Mean Corpuscular Volume 86.6, Mean Corpuscular Hemoglobin 28.4, Mean Corpuscular Hemoglobin Concent 32.8, Red Cell Distribution Width 13.9, Calcium Level 7.8 L Microbiology Microbiology 08/04/16 Blood Culture, Received Pending 08/04/16 Blood Culture, Received Pending 08/04/16 Urine Culture, Received Pending MINNIE KIMBALL Aug 05, 2016 14:36
[2016-08-05] MEDS: ATORVASTATIN 20 MG TAB PO SCH (20:29)
[2016-08-05] MEDS: GABAPENTIN 300 MG CAP PO SCH (20:30)
[2016-08-05] MEDS: raNITIdine SYRUP 150 MG/10 ML UDC PO SCH (20:31)
[2016-08-05] MEDS: ACETAMINOPHEN TAB 650MG DOSE (2X325MG) PO PRN (20:37)
[2016-08-05] MEDS: LEVEMIR (INSULIN DETEMIR) 1 UNITS/0.01ML SC SCH (20:41)
[2016-08-05 22:00] VITALS: BP 108/70
[2016-08-06 06:00] VITALS: BP 113/68
[2016-08-06] MEDS: METOPROLOL TART 12.5 MG PER 1/2 TAB PO SCH ×3 (06:00→20:31)
[2016-08-06] MEDS ORDERED: diphenhydrAMINE 25 MG CAP PO ONE (06:15)
[2016-08-06] MEDS: ADVAIR HFA 230/21 INHALER INH SCH ×2 (06:21→21:40)
[2016-08-06 06:42] LABS: MEAN CORPUSCULAR HEMOGLOBIN 28.5 pg (27.0-33.0); MEAN CORPUSCULAR HGB CONC 32.4 g/dl (32.0-36.5); MEAN CORPUSCULAR VOLUME 88.1 fl (80.0-96.0); RED CELL DISTRIBUTION WIDTH 13.7 % (11.5-14.5); WHITE BLOOD COUNT 10.2 K/mm3 (4.0-10.0)
[2016-08-06] MEDS ORDERED: ONDANSETRON 4 MG TAB (S0181) PO PRN (06:45)
[2016-08-06] MEDS: traMADol 50 MG TAB PO PRN ×3 (06:55→18:58)
[2016-08-06 06:57] LABS: ANION GAP 8 MEQ/L (8-16); BLOOD UREA NITROGEN 17 MG/DL (7-18); CALCIUM LEVEL 8.2 MG/DL (8.8-10.2); CARBON DIOXIDE LEVEL 29 MEQ/L (21-32); CHLORIDE LEVEL 99 MEQ/L (98-107); CREATININE FOR GFR 0.98 MG/DL (0.70-1.30); GLOMERULAR FILTRATION RATE > 60.0 (>42); GLUCOSE, FASTING 124 MG/DL (83-110); POTASSIUM SERUM 4.6 MEQ/L (3.5-5.1); SODIUM LEVEL 136 MEQ/L (136-145)
[2016-08-06] MEDS: HumaLOG INSULIN (NovoLOG) PER UNIT SC SCH ×4 (07:30→20:31)
[2016-08-06] MEDS: PANTOPRAZOLE 40MG TAB (PROTONIX) PO SCH (08:21)
[2016-08-06] MEDS: HYDROXYCHLOROQUINE 200 MG TAB PO SCH (08:21)
[2016-08-06] MEDS: predniSONE 1 MG TAB PO SCH ×3 (08:22→20:28)
[2016-08-06] MEDS: OCUVITE 1 TAB PO SCH (08:22)
[2016-08-06] MEDS: PREGABALIN 50 MG CAP (LYRICA) PO SCH ×2 (08:22→20:28)
[2016-08-06] MEDS: DOCUSATE SODIUM 100 MG CAP PO SCH ×2 (08:22→20:28)
[2016-08-06] MEDS: APIXABAN 5 MG TAB (ELIQUIS) PO SCH ×2 (08:22→20:28)
[2016-08-06] MEDS: MULTIVITAMINS/MINERALS THERAP 1 TAB PO SCH (08:23)
[2016-08-06] MEDS: MOM 30ML SUSPENSION UDC PO SCH (08:23)
[2016-08-06] MEDS: MIRALAX *UNIT DOSE* 17GM PACKET PO SCH (08:23)
[2016-08-06] MEDS: CETIRIZINE (ZyrTEC) 10 MG TAB PO SCH (09:00)
[2016-08-06 11:49] VITALS: BP 174/87
[2016-08-06 14:04] VITALS: BP 143/78
[2016-08-06] MEDS: raNITIdine SYRUP 150 MG/10 ML UDC PO SCH (20:28)
[2016-08-06] MEDS: GABAPENTIN 300 MG CAP PO SCH (20:28)
[2016-08-06] MEDS: ATORVASTATIN 20 MG TAB PO SCH (20:28)
[2016-08-06] MEDS: LEVEMIR (INSULIN DETEMIR) 1 UNITS/0.01ML SC SCH (20:29)
[2016-08-06 22:00] VITALS: BP 130/72
[2016-08-07] MEDS: traMADol 50 MG TAB PO PRN ×5 (00:12→20:08)
[2016-08-07] MEDS: METOPROLOL TART 12.5 MG PER 1/2 TAB PO SCH ×3 (05:20→20:06)
[2016-08-07 06:00] VITALS: BP 136/68
[2016-08-07 07:04] LABS: MEAN CORPUSCULAR HEMOGLOBIN 28.7 pg (27.0-33.0); MEAN CORPUSCULAR HGB CONC 32.8 g/dl (32.0-36.5); MEAN CORPUSCULAR VOLUME 87.4 fl (80.0-96.0); RED CELL DISTRIBUTION WIDTH 13.9 % (11.5-14.5); WHITE BLOOD COUNT 8.6 K/mm3 (4.0-10.0)
[2016-08-07 07:18] LABS: ANION GAP 10 MEQ/L (8-16); BLOOD UREA NITROGEN 16 MG/DL (7-18); CALCIUM LEVEL 8.2 MG/DL (8.8-10.2); CARBON DIOXIDE LEVEL 26 MEQ/L (21-32); CHLORIDE LEVEL 99 MEQ/L (98-107); GLOMERULAR FILTRATION RATE > 60.0 (>42); GLUCOSE, FASTING 115 MG/DL (83-110); SODIUM LEVEL 135 MEQ/L (136-145)
[2016-08-07] MEDS: ADVAIR HFA 230/21 INHALER INH SCH ×2 (07:30→20:51)
[2016-08-07] MEDS: HumaLOG INSULIN (NovoLOG) PER UNIT SC SCH ×4 (07:39→20:08)
[2016-08-07] MEDS: OCUVITE 1 TAB PO SCH (08:19)
[2016-08-07] MEDS: PANTOPRAZOLE 40MG TAB (PROTONIX) PO SCH (08:19)
[2016-08-07] MEDS: DOCUSATE SODIUM 100 MG CAP PO SCH ×2 (08:19→20:08)
[2016-08-07] MEDS: MOM 30ML SUSPENSION UDC PO SCH (08:19)
[2016-08-07] MEDS: MIRALAX *UNIT DOSE* 17GM PACKET PO SCH (08:19)
[2016-08-07] MEDS: predniSONE 1 MG TAB PO SCH ×3 (08:20→20:08)
[2016-08-07] MEDS: HYDROXYCHLOROQUINE 200 MG TAB PO SCH (08:20)
[2016-08-07] MEDS: MULTIVITAMINS/MINERALS THERAP 1 TAB PO SCH (08:20)
[2016-08-07] MEDS: CETIRIZINE (ZyrTEC) 10 MG TAB PO SCH (08:20)
[2016-08-07] MEDS: APIXABAN 5 MG TAB (ELIQUIS) PO SCH ×2 (08:20→20:08)
[2016-08-07] MEDS: PREGABALIN 50 MG CAP (LYRICA) PO SCH ×2 (08:20→20:14)
[2016-08-07 09:35] VITALS: BP 147/90
--- NOTE | 2016-08-07 13:37 | IPNPDOC ---
Date Seen The patient was seen on 08/07/16. Progress Note Subjective: Abdominal distension getting better however still feels uncomfortable. Mobilizing more. appetite improving. Had several bowel movements over the past 48 hours, no fever or chills, no chest pain or SOB Vital Signs: Vital Signs Label Value Date Time Patient Temperature 97.9 degrees F 08/07/16934 Temperature Source Skin 08/07/16934 Pulse 102 08/07/1635 Respiratory Rate 18 bpm 08/07/16934 Blood Pressure Assessment 147/90 (109) 08/07/16934 Bedside Pulse Oximetry 92 % 08/07/16934 Item Value Date Time Oxygen Delivery Method Room Air 08/07/16934 Physical Exam: General: Awake, alert, no acute distress HEENT: Normocephalic, atraumatic, extraocular movements intact CV: Irregularly irregular Lungs: Clear to auscultation bilaterally Abd: Soft, nontender, distended, good bowel sounds Extremities: No edema Neuro: Alert and oriented 3 Psych: Normal mood and affect Assessment and Plan: 76-year-old male with history of A. fib/flutter, right bundle branch block, diabetes mellitus type 2, obesity, hyperlipidemia, DEVIKA on CPAP, COPD, rheumatoid arthritis, bilateral neurogenic claudication secondary to lumbar spinal stenosis who was admitted to the service of Dr. Mata and has undergone surgical decompression at L4-L5. We have been consulted for medical management. 1. Fever on 08/04/2016: Resolved .Since we did not have a clear source of infection, and this mild postoperative fever could be secondary to atelectasis, vanc and Merrem was stopped. We will continue to follow up the cultures and monitor the fever curve. 2. Abdominal distention: A KUB showed a possible mild postoperative ileus. Had bowel regimen given with several bowel movements. 3. A. fib/flutter: The patient has been restarted on his Eliquis. He has had heart rates in the 110s today, so we will start him on scheduled metoprolol. 4. Diabetes mellitus type 2: Continue sliding scale insulin. Continue Levemir 15 units at bedtime. Currently holding home metformin, invokana, and trulicity. 5. COPD: Currently on room air. Continue home Advair, Combivent, Flonase, and Zyrtec. 6. Rheumatoid arthritis: Continue home prednisone and Plaquenil. 7. Difficulty voiding on 08/04/2016: This now appears to have resolved. We'll continue to monitor. 8. Hyperlipidemia: Continue home statin. 9. Acute kidney injury: Creatinine had bumped to low ones. It has now resolved. MARSHALL inhibitor is currently on hold. We will stop IV fluids at this time. DVT prophylaxis: Eliquis Dispo: at the discretion of the primary team VS, I&O, 24H, Fishbone Vital Signs/I&O Vital Signs Date Time Temp Pulse Resp B/P Pulse Ox O2 Delivery O2 Flow Rate FiO2 08/07/16 10:36 18 08/07/16 09:48 Room Air 08/07/16 09:35 97.9 102 147/90 92 08/04/16 14:00 2.0 I&O- Last 24 Hours up to 6 AM 08/07/16 06:00 Intake Total 1440 ml Output Total 750 ml Balance 690 ml Laboratory Data 24H LABS Laboratory Tests 2 08/06/16 17:12: Bedside Glucose (Misc Panel) 149H 08/06/16 20:00: Vancomycin Level Trough 1.2L 08/06/16 20:22: Bedside Glucose (Misc Panel) 134H 08/07/16 06:32: Anion Gap 10, Blood Urea Nitrogen 16, Creatinine 0.80, Sodium Level 135L, Potassium Level 4.0, Chloride Level 99, Carbon Dioxide Level 26, Calcium Level 8.2L, Glomerular Filtration Rate > 60.0 CBC/BMP Laboratory Tests 08/07/16 06:32 Calcium Level 8.2 L, Red Blood Count 3.39 L, Mean Corpuscular Volume 87.4, Mean Corpuscular Hemoglobin 28.7, Mean Corpuscular Hemoglobin Concent 32.8, Red Cell Distribution Width 13.9 Microbiology Microbiology 08/04/16 Blood Culture - Preliminary, Resulted No Growth after 48 hours. All Specime... 08/04/16 Blood Culture - Preliminary, Resulted No Growth after 48 hours. All Specime... 08/04/16 Urine Culture - Final, Complete HERNESTO PAL MD Aug 07, 2016 13:37
[2016-08-07 14:00] VITALS: BP 152/87
[2016-08-07] MEDS: COMBIVENT RESPIMAT 100-20MCG INHALER 4GM INH PRN (17:50)
[2016-08-07] MEDS: ATORVASTATIN 20 MG TAB PO SCH (20:06)
[2016-08-07] MEDS: GABAPENTIN 300 MG CAP PO SCH (20:06)
[2016-08-07] MEDS: raNITIdine SYRUP 150 MG/10 ML UDC PO SCH (20:08)
[2016-08-07] MEDS: LEVEMIR (INSULIN DETEMIR) 1 UNITS/0.01ML SC SCH (20:08)
[2016-08-07 22:00] VITALS: BP 136/82
[2016-08-08] MEDS: traMADol 50 MG TAB PO PRN ×4 (00:18→14:47)
[2016-08-08] MEDS: METOPROLOL TART 12.5 MG PER 1/2 TAB PO SCH ×2 (05:17→14:48)
[2016-08-08 06:00] VITALS: BP 141/89
[2016-08-08] MEDS ORDERED: TRAM50TA2 PO (07:02)
[2016-08-08] MEDS: ADVAIR HFA 230/21 INHALER INH SCH (07:04)
[2016-08-08 07:20] LABS: MEAN CORPUSCULAR HEMOGLOBIN 28.7 pg (27.0-33.0); MEAN CORPUSCULAR HGB CONC 33.2 g/dl (32.0-36.5); MEAN CORPUSCULAR VOLUME 86.4 fl (80.0-96.0); RED CELL DISTRIBUTION WIDTH 13.8 % (11.5-14.5); WHITE BLOOD COUNT 9.2 K/mm3 (4.0-10.0)
[2016-08-08 07:27] LABS: ANION GAP 9 MEQ/L (8-16); BLOOD UREA NITROGEN 14 MG/DL (7-18); CARBON DIOXIDE LEVEL 26 MEQ/L (21-32); CHLORIDE LEVEL 101 MEQ/L (98-107); CREATININE FOR GFR 0.79 MG/DL (0.70-1.30); GLOMERULAR FILTRATION RATE > 60.0 (>42); GLUCOSE, FASTING 112 MG/DL (83-110); POTASSIUM SERUM 4.1 MEQ/L (3.5-5.1); SODIUM LEVEL 136 MEQ/L (136-145)
[2016-08-08] MEDS: HumaLOG INSULIN (NovoLOG) PER UNIT SC SCH ×3 (07:41→17:12)
[2016-08-08 08:30] VITALS: BP 157/100
[2016-08-08] MEDS: MOM 30ML SUSPENSION UDC PO SCH (08:47)
[2016-08-08] MEDS: MIRALAX *UNIT DOSE* 17GM PACKET PO SCH (08:47)
[2016-08-08] MEDS: DOCUSATE SODIUM 100 MG CAP PO SCH (08:48)
[2016-08-08] MEDS: OCUVITE 1 TAB PO SCH (08:48)
[2016-08-08] MEDS: PANTOPRAZOLE 40MG TAB (PROTONIX) PO SCH (08:48)
[2016-08-08] MEDS: PREGABALIN 50 MG CAP (LYRICA) PO SCH (08:48)
[2016-08-08] MEDS: predniSONE 1 MG TAB PO SCH ×2 (08:48→14:48)
[2016-08-08] MEDS: HYDROXYCHLOROQUINE 200 MG TAB PO SCH (08:48)
[2016-08-08] MEDS: CETIRIZINE (ZyrTEC) 10 MG TAB PO SCH (08:48)
[2016-08-08] MEDS: APIXABAN 5 MG TAB (ELIQUIS) PO SCH (08:48)
[2016-08-08] MEDS: MULTIVITAMINS/MINERALS THERAP 1 TAB PO SCH (08:49)
[2016-08-08 09:00] VITALS: BP 124/80
[2016-08-08] MEDS ORDERED: LISINOPRIL 10 MG TAB PO SCH (09:00)
[2016-08-08 10:53] VITALS: BP 157/100
--- NOTE | 2016-08-08 11:46 | IPNPDOC ---
Date Seen The patient was seen on 08/08/16. Progress Note Subjective: Feeling well today , moving better, abdominal distension better. no fever or chills, no chest pain or sob , no abdominal pain , no nausea or vomiting. or diarrhea. Vitals: Vital Signs Label Value Date Time Patient Temperature 97.0 degrees F 08/08/16 0900 Temperature Source Tympanic 08/08/16899 Pulse 79 08/08/16899 Respiratory Rate 16 bpm 08/08/16 09 Blood Pressure Assessment 124/80 (95) 08/08/16899 Bedside Pulse Oximetry 95 % 08/08/16899 Physical Exam: General: Awake, alert, no acute distress HEENT: Normocephalic, atraumatic, extraocular movements intact CV: Irregularly irregular Lungs: Clear to auscultation bilaterally Abd: Soft, nontender, distended, good bowel sounds Extremities: No edema Neuro: Alert and oriented 3 Psych: Normal mood and affect Assessment and Plan: 76-year-old male with history of A. fib/flutter, right bundle branch block, diabetes mellitus type 2, obesity, hyperlipidemia, DEVIKA on CPAP, COPD, rheumatoid arthritis, bilateral neurogenic claudication secondary to lumbar spinal stenosis who was admitted to the service of Dr. Mata and has undergone surgical decompression at L4-L5. We have been consulted for medical management. 1. Fever on 08/04/2016: Resolved .Since we did not have a clear source of infection, and this mild postoperative fever could be secondary to atelectasis, vanc and Merrem was stopped. We will continue to follow up the cultures and monitor the fever curve. 2. Abdominal distention: A KUB showed a possible mild postoperative ileus. Had bowel regimen given with several bowel movements. 3. A. fib/flutter: The patient has been restarted on his Eliquis. He has had heart rates in the 110s today, so we will start him on scheduled metoprolol. 4. Diabetes mellitus type 2: Continue sliding scale insulin. Continue Levemir 15 units at bedtime. Currently holding home metformin, invokana, and trulicity. 5. COPD: Currently on room air. Continue home Advair, Combivent, Flonase, and Zyrtec. 6. Rheumatoid arthritis: Continue home prednisone and Plaquenil. 7. Difficulty voiding on 08/04/2016: This now appears to have resolved. We'll continue to monitor. 8. Hyperlipidemia: Continue home statin. 9. Acute kidney injury: Creatinine had bumped to low ones. It has now resolved. MARSHALL inhibitor is currently on hold. We will stop IV fluids at this time. DVT prophylaxis: Eliquis Dispo: at the discretion of the primary team VS, I&O, 24H, Fishbone Vital Signs/I&O Vital Signs Date Time Temp Pulse Resp B/P Pulse Ox O2 Delivery O2 Flow Rate FiO2 08/08/16 10:57 18 08/08/16 10:53 Room Air 08/08/16 10:53 97.0 92 157/100 92 08/04/16 14:00 2.0 I&O- Last 24 Hours up to 6 AM 08/08/16 06:00 Intake Total 2880 ml Output Total 1650 ml Balance 1230 ml Laboratory Data 24H LABS Laboratory Tests 2 08/07/16 11:59: Bedside Glucose (Misc Panel) 137H 08/07/16 17:25: Bedside Glucose (Misc Panel) 113H 08/07/16 19:48: Bedside Glucose (Misc Panel) 159H 08/08/16 06:43: Anion Gap 9, Blood Urea Nitrogen 14, Creatinine 0.79, Sodium Level 136, Potassium Level 4.1, Chloride Level 101, Carbon Dioxide Level 26, Calcium Level 8.0L, Glomerular Filtration Rate > 60.0 CBC/BMP Laboratory Tests 08/08/16 06:43 Calcium Level 8.0 L, Red Blood Count 3.34 L, Mean Corpuscular Volume 86.4, Mean Corpuscular Hemoglobin 28.7, Mean Corpuscular Hemoglobin Concent 33.2, Red Cell Distribution Width 13.8 Microbiology Microbiology 08/04/16 Blood Culture - Preliminary, Resulted No Growth after 72 hours. All specime... 08/04/16 Blood Culture - Preliminary, Resulted No Growth after 72 hours. All specime... 08/04/16 Urine Culture - Final, Complete HERNESTO PAL MD Aug 08, 2016 11:46
[2016-08-08] MEDS: COMBIVENT RESPIMAT 100-20MCG INHALER 4GM INH PRN (11:55)
[2016-08-08 14:00] VITALS: BP 129/67
[2016-08-08 14:48] VITALS: BP 129/67
[2016-08-08] MEDS ORDERED: METO12TA PO (15:09)
== END 2016-08-08 17:30 | disposition home health service (06) | DRG 304 ==
LOC: M OR 05:47 → M MS5PR 12:50
PROVIDERS: ADMIT Orthopaedic Surgery; ATTEND Orthopaedic Surgery
PROC: 01NB0ZZ Release Lumbar Nerve, Open Approach (ICD-10-PCS; 2016-08-02)
PROC: 0SG1071 Fusion of 2 or more Lumbar Vertebral Joints with Autologous Tissue Substitute, Posterior Approach, Posterior Column, Open Approach (ICD-10-PCS; principal; 2016-08-02 07:30)
DX: M48.06 Spinal stenosis, lumbar region (principal); N17.9 Acute kidney failure, unspecified; G95.19 Other vascular myelopathies; I48.92 Unspecified atrial flutter; K56.7 Ileus, unspecified; I48.91 Unspecified atrial fibrillation; E11.9 Type 2 diabetes mellitus without complications; J44.9 Chronic obstructive pulmonary disease, unspecified; I45.10 Unspecified right bundle-branch block; M06.9 Rheumatoid arthritis, unspecified; M51.36 Other intervertebral disc degeneration, lumbar region; E66.9 Obesity, unspecified; E78.5 Hyperlipidemia, unspecified; G47.33 Obstructive sleep apnea (adult) (pediatric); J98.11 Atelectasis; Z68.35 Body mass index [BMI] 35.0-35.9, adult; Z85.828 Personal history of other malignant neoplasm of skin; Z79.01 Long term (current) use of anticoagulants; Z79.4 Long term (current) use of insulin; Z79.84 Long term (current) use of oral hypoglycemic drugs; Z79.51 Long term (current) use of inhaled steroids; Z88.8 Allergy status to other drugs, medicaments and biological substances; Z79.899 Other long term (current) drug therapy

== ENCOUNTER → 2016-10-18 | Outpatient (REF) | payer MEDICARE, OTHER ==
[~2016-10-18] MED LIST changes: +GABA-282 PO; -GABA300C3 PO; +METO12TA PO; +TRAM50TA2 PO
[2016-10-18 12:02] LABS: BASO % 0.5 % (0.0-1.0); EOS # 0.1 K/mm3 (0.0-0.50); EOS % 1.6 % (0.0-3.0); LARGE UNSTAINED CELL # 0.1 K/mm3 (0.0-0.4); LYMPH # 1.3 K/mm3 (1.5-4.5); LYMPH % 19.2 % (24.0-44.0); MEAN CORPUSCULAR HEMOGLOBIN 28.6 pg (27.0-33.0); MEAN CORPUSCULAR HGB CONC 32.9 g/dl (32.0-36.5); MEAN CORPUSCULAR VOLUME 86.9 fl (80.0-96.0); MONO # 0.7 K/mm3 (0.0-0.8); MONO % 11.6 % (0.0-5.0); NEUTROPHILS # 3.9 K/mm3 (1.8-7.7); PLATELET COUNT, AUTOMATED 224 k/mm3 (150-450); RED CELL DISTRIBUTION WIDTH 14.8 % (11.5-14.5)
[2016-10-18 12:47] LABS: ERYTHROCYTE SEDIMENTATION RATE 12 mm/hr (0-20)
[2016-10-18 13:07] LABS: ALKALINE PHOSPHATASE 70 U/L (45-117); ALT/SGPT 21 U/L (12-78); ANION GAP 7 MEQ/L (8-16); AST/SGOT 16 U/L (15-37); BLOOD UREA NITROGEN 22 MG/DL (7-18); CALCIUM LEVEL 8.4 MG/DL (8.8-10.2); CARBON DIOXIDE LEVEL 27 MEQ/L (21-32); CHLORIDE LEVEL 108 MEQ/L (98-107); GLOMERULAR FILTRATION RATE > 60.0 (>42); GLUCOSE, FASTING 109 MG/DL (83-110); POTASSIUM SERUM 3.9 MEQ/L (3.5-5.1); SODIUM LEVEL 142 MEQ/L (136-145); TOTAL PROTEIN 6.5 GM/DL (6.4-8.2)
== END ==
LOC: M LABDRAW1 11:44
PROVIDERS: ATTEND Internal Medicine Rheumatology
DX: M05.79 Rheumatoid arthritis with rheumatoid factor of multiple sites without organ or systems involvement (principal); Z79.899 Other long term (current) drug therapy

== ENCOUNTER → 2016-10-23 | Outpatient (REF) | payer MEDICARE, OTHER ==
[2016-10-23 18:27] LABS: ANION GAP 10 MEQ/L (8-16); BLOOD UREA NITROGEN 19 MG/DL (7-18); CALCIUM LEVEL 8.9 MG/DL (8.8-10.2); CARBON DIOXIDE LEVEL 24 MEQ/L (21-32); CHLORIDE LEVEL 105 MEQ/L (98-107); CHOLESTEROL LEVEL 118 MG/DL (<200); CREATININE FOR GFR 0.92 MG/DL (0.70-1.30); GLOMERULAR FILTRATION RATE > 60.0 (>42); GLUCOSE, FASTING 121 MG/DL (83-110); POTASSIUM SERUM 4.2 MEQ/L (3.5-5.1); SODIUM LEVEL 139 MEQ/L (136-145); TRIGLYCERIDES LEVEL 126 MG/DL (<150)
== END ==
LOC: M LABDRAW1 16:49
PROVIDERS: ATTEND Internal Medicine Endocrinology, Diabetes & Metabolism
DX: E78.2 Mixed hyperlipidemia (principal); E55.9 Vitamin D deficiency, unspecified; E11.9 Type 2 diabetes mellitus without complications

== ENCOUNTER → 2016-10-25 | Outpatient (REF) | payer MEDICARE, OTHER | LOC: M LABDRAW1 11:26 | PROVIDERS: ATTEND Physician Assistant Medical | DX: E78.2 Mixed hyperlipidemia (principal); E55.9 Vitamin D deficiency, unspecified; E11.9 Type 2 diabetes mellitus without complications ==

== ENCOUNTER → 2016-11-14 | Outpatient (REF) | payer MEDICARE, OTHER ==
[2016-11-14 12:49] LABS: BASO % 0.5 % (0.0-1.0); EOS # 0.1 K/mm3 (0.0-0.50); EOS % 1.5 % (0.0-3.0); LARGE UNSTAINED CELL # 0.1 K/mm3 (0.0-0.4); LARGE UNSTAINED CELL % 1.9 % (0.0-4.0); LYMPH # 1.2 K/mm3 (1.5-4.5); LYMPH % 16.9 % (24.0-44.0); MEAN CORPUSCULAR HEMOGLOBIN 27.9 pg (27.0-33.0); MEAN CORPUSCULAR HGB CONC 32.5 g/dl (32.0-36.5); MEAN CORPUSCULAR VOLUME 85.8 fl (80.0-96.0); MONO # 0.7 K/mm3 (0.0-0.8); MONO % 10.2 % (0.0-5.0); NEUTROPHILS # 4.6 K/mm3 (1.8-7.7); NEUTROPHILS % 69.1 % (36.0-66.0); PLATELET COUNT, AUTOMATED 231 k/mm3 (150-450); RED CELL DISTRIBUTION WIDTH 14.7 % (11.5-14.5); WHITE BLOOD COUNT 6.6 K/mm3 (4.0-10.0)
[2016-11-14 13:42] LABS: ALBUMIN 3.9 GM/DL (3.2-5.2); ALKALINE PHOSPHATASE 85 U/L (45-117); ALT/SGPT 18 U/L (12-78); ANION GAP 8 MEQ/L (8-16); AST/SGOT 12 U/L (15-37); BILIRUBIN,TOTAL 0.8 MG/DL (0.2-1.0); BLOOD UREA NITROGEN 13 MG/DL (7-18); CALCIUM LEVEL 8.6 MG/DL (8.8-10.2); CARBON DIOXIDE LEVEL 28 MEQ/L (21-32); CHLORIDE LEVEL 104 MEQ/L (98-107); CREATININE FOR GFR 0.83 MG/DL (0.70-1.30); GLOMERULAR FILTRATION RATE > 60.0 (>42); GLUCOSE, FASTING 91 MG/DL (83-110); POTASSIUM SERUM 3.9 MEQ/L (3.5-5.1); SODIUM LEVEL 140 MEQ/L (136-145); TOTAL PROTEIN 6.5 GM/DL (6.4-8.2)
[2016-11-14 13:55] LABS: ERYTHROCYTE SEDIMENTATION RATE 17 mm/hr (0-20)
== END ==
LOC: M LABDRAW1 12:14
PROVIDERS: ATTEND Internal Medicine Rheumatology
DX: M05.79 Rheumatoid arthritis with rheumatoid factor of multiple sites without organ or systems involvement (principal); Z79.899 Other long term (current) drug therapy; D64.9 Anemia, unspecified

== ENCOUNTER → 2016-11-22 | Outpatient (REF) | payer MEDICARE, OTHER | LOC: M LAB REF 12:41 | PROVIDERS: ATTEND Internal Medicine Rheumatology | DX: D64.9 Anemia, unspecified (principal); Z79.899 Other long term (current) drug therapy ==

== ENCOUNTER → 2016-12-25 | Outpatient (REF) | payer MEDICARE, OTHER ==
[~2016-12-25] MED LIST changes: -ATOR40TA PO; +ATOR40TA75 PO; -CALC600T10 PO; +CALC600T31 PO; -CELE-19 PO; +CELE1CAP4 PO; -METF500T PO; +METF500T13 PO; -METO12TA PO; +METO1TAB87 PO; -VITA100037 PO; +VITA100067 PO
== END ==
LOC: M LAB REF 16:42
PROVIDERS: ATTEND Surgery
DX: C44.510 Basal cell carcinoma of anal skin (principal)

== ENCOUNTER → 2016-12-30 | Outpatient (REF) | payer MEDICARE, OTHER ==
[2016-12-30 09:37] LABS: BASO % 0.5 % (0.0-1.0); EOS # 0.1 K/mm3 (0.0-0.50); EOS % 1.1 % (0.0-3.0); LARGE UNSTAINED CELL # 0.2 K/mm3 (0.0-0.4); LARGE UNSTAINED CELL % 2.6 % (0.0-4.0); LYMPH # 1.1 K/mm3 (1.5-4.5); LYMPH % 14.1 % (24.0-44.0); MEAN CORPUSCULAR VOLUME 87.4 fl (80.0-96.0); MONO # 0.8 K/mm3 (0.0-0.8); MONO % 10.3 % (0.0-5.0); NEUTROPHILS # 5.4 K/mm3 (1.8-7.7); NEUTROPHILS % 71.3 % (36.0-66.0); PLATELET COUNT, AUTOMATED 215 k/mm3 (150-450); RED CELL DISTRIBUTION WIDTH 14.5 % (11.5-14.5); WHITE BLOOD COUNT 7.6 K/mm3 (4.0-10.0)
[2016-12-30 10:07] LABS: ALBUMIN/GLOBULIN RATIO 1.38 (1.00-1.93); ALKALINE PHOSPHATASE 77 U/L (45-117); ALT/SGPT 19 U/L (12-78); ANION GAP 10 MEQ/L (8-16); AST/SGOT 11 U/L (15-37); BLOOD UREA NITROGEN 16 MG/DL (7-18); CALCIUM LEVEL 8.9 MG/DL (8.8-10.2); CARBON DIOXIDE LEVEL 28 MEQ/L (21-32); CHLORIDE LEVEL 105 MEQ/L (98-107); CREATININE FOR GFR 0.87 MG/DL (0.70-1.30); GLOMERULAR FILTRATION RATE > 60.0 (>42); GLUCOSE, FASTING 109 MG/DL (83-110); POTASSIUM SERUM 4.1 MEQ/L (3.5-5.1); SODIUM LEVEL 143 MEQ/L (136-145); TOTAL PROTEIN 6.9 GM/DL (6.4-8.2)
[2016-12-30 10:20] LABS: ERYTHROCYTE SEDIMENTATION RATE 12 mm/hr (0-20)
== END ==
LOC: M LABDRAW1 07:56
PROVIDERS: ATTEND Internal Medicine Rheumatology
DX: M05.79 Rheumatoid arthritis with rheumatoid factor of multiple sites without organ or systems involvement (principal); Z79.899 Other long term (current) drug therapy

== ENCOUNTER → 2017-03-13 | Outpatient (REF) | payer MEDICARE, OTHER ==
[~2017-03-13] MED LIST changes: +PROAAER10 INH; +VERA40TA PO; +VISI1TAB PO
[2017-03-13 16:41] LABS: BASO % 0.5 % (0.0-1.0); EOS # 0.1 10^3/uL (0.0-0.50); IMMATURE GRANULOCYTE % 1.2 % (0-0); LYMPH % 17.7 % (24.0-44.0); MEAN CORPUSCULAR HEMOGLOBIN 27.6 pg (27.0-33.0); MEAN CORPUSCULAR HGB CONC 31.1 g/dl (32.0-36.5); MEAN CORPUSCULAR VOLUME 88.9 fl (80.0-96.0); MONO # 0.6 10^3/uL (0.0-0.8); MONO % 9.9 % (0.0-5.0); NEUTROPHILS % 69.7 % (36.0-66.0); PLATELET COUNT, AUTOMATED 225 10^3/uL (150-450); RED CELL DISTRIBUTION WIDTH 15.2 % (11.5-14.5); WHITE BLOOD COUNT 5.8 10^3/uL (4.0-10.0)
[2017-03-13 16:52] LABS: ALBUMIN 3.9 GM/DL (3.2-5.2); ALBUMIN/GLOBULIN RATIO 1.44 (1.00-1.93); ALKALINE PHOSPHATASE 75 U/L (45-117); ALT/SGPT 24 U/L (12-78); ANION GAP 5 MEQ/L (8-16); AST/SGOT 13 U/L (15-37); BLOOD UREA NITROGEN 14 MG/DL (7-18); CALCIUM LEVEL 9.1 MG/DL (8.8-10.2); CARBON DIOXIDE LEVEL 30 MEQ/L (21-32); CHLORIDE LEVEL 106 MEQ/L (98-107); CREATININE FOR GFR 0.81 MG/DL (0.70-1.30); GLOMERULAR FILTRATION RATE > 60.0 (>42); GLUCOSE, FASTING 150 MG/DL (83-110); SODIUM LEVEL 141 MEQ/L (136-145); TOTAL PROTEIN 6.6 GM/DL (6.4-8.2)
[2017-03-13 17:10] LABS: ERYTHROCYTE SEDIMENTATION RATE 5 mm/hr (0-20)
== END ==
LOC: M LABDRAW1 13:48
PROVIDERS: ATTEND Internal Medicine Rheumatology
DX: M05.79 Rheumatoid arthritis with rheumatoid factor of multiple sites without organ or systems involvement (principal); Z79.899 Other long term (current) drug therapy

== ENCOUNTER 2017-04-23 09:26 | Day surgery (SDC) | payer MEDICARE, OTHER ==
[~2017-04-23] VITALS: Ht 167.6 cm; Wt 97.9 kg
[2017-04-23] MEDS ORDERED: NS 1,000 ML IV ONE (09:45)
[2017-04-23] MEDS ORDERED: LIDOCAINE 2% INJ 100 MG/5 ML SDV (FOR ANES.) As Ordered ONE (10:35)
[2017-04-23] MEDS ORDERED: PROPOFOL 200 MG/20 ML VIAL As Ordered ONE (10:35)
--- NOTE | 2017-04-23 10:54 | ROOR ---
Patient Name: Ivan Pastor Procedure Date: 04/23/2017 10:38 AM Date of : 1940 Age: 77 Room: [facility] Gender: Male Note Status: Finalized Procedure: Upper Endoscopy + Biopsies Indications: Unexplained iron deficiency anemia Providers: Isacc Ruiz MD Referring MD: Xiao Crane NP Requesting Provider: Medicines: Monitored Anesthesia Care Complications: No immediate complications. Procedure: Pre-Anesthesia Assessment: - The heart rate, respiratory rate, oxygen saturations, blood pressure, adequacy of pulmonary ventilation, and response to care were monitored throughout the procedure. The Endoscope was introduced through the mouth, and advanced to the second part of duodenum. The upper GI endoscopy was accomplished without difficulty. The patient tolerated the procedure well. Findings: The Z-line was irregular and was found 35 cm from the incisors. Diffuse mild inflammation characterized by congestion (edema), erythema, friability and granularity was found in the entire examined stomach. Biopsies were taken with a cold forceps for Helicobacter pylori testing. The exam was otherwise without abnormality. Impression: - Z-line irregular, 35 cm from the incisors. - Chronic gastritis. Biopsied. - The examination was otherwise normal. Recommendation: - Patient has a contact number available for emergencies. The signs and symptoms of potential delayed complications were discussed with the patient. Return to normal activities tomorrow. Written discharge instructions were provided to the patient. - High fiber diet. - Discharge patient to home. - Continue present medications. - Await pathology results. - Telephone GI clinic for pathology results in 1 week. - Return to referring physician. - The findings and recommendations were discussed with the patient's family. Isacc Ruiz MD Isacc Ruiz MD 04/23/2017 10:54:05 AM This report has been signed electronically. Number of Addenda: 0 Note Initiated On: 04/23/2017 10:38 AM Estimated Blood Loss: Estimated blood loss: none.
[2017-04-23] MEDS ORDERED: METOPROLOL 5 MG/5 ML VIAL As Ordered ONE (11:02)
--- NOTE | 2017-04-23 11:15 | ROOR ---
Patient Name: Ivan Pastor Procedure Date: 04/23/2017 10:39 AM Date of : 1940 Age: 77 Room: [facility] Gender: Male Note Status: Finalized Procedure: Total Colonoscopy to Cecum + Cold Snare Polypectomy + Hemoclips Indications: Unexplained iron deficiency anemia Providers: Isacc Ruiz MD Referring MD: Xiao Crane NP Requesting Provider: Medicines: Monitored Anesthesia Care Complications: No immediate complications. Procedure: Pre-Anesthesia Assessment: - The heart rate, respiratory rate, oxygen saturations, blood pressure, adequacy of pulmonary ventilation, and response to care were monitored throughout the procedure. The Colonoscope was introduced through the anus and advanced to the cecum, identified by appendiceal orifice and ileocecal valve. The colonoscopy was performed without difficulty. The patient tolerated the procedure well. The quality of the bowel preparation was excellent. Findings: The perianal and digital rectal examinations were normal. Non-bleeding internal hemorrhoids were found during retroflexion. The hemorrhoids were small and Grade I (internal hemorrhoids that do not prolapse). A small polyp was found at 10 cm proximal to the anus. The polyp was sessile. The polyp was removed with a cold snare. Resection and retrieval were complete. A medium polyp was found in the transverse colon. The polyp was sessile. The polyp was removed with a cold snare. Resection and retrieval were complete. To prevent bleeding after the polypectomy, two hemostatic clips were successfully placed (MR conditional). There was no bleeding at the end of the procedure. The exam was otherwise without abnormality on direct and retroflexion views. Impression: - Non-bleeding internal hemorrhoids. - One small polyp at 10 cm proximal to the anus, removed with a cold snare. Resected and retrieved. - One medium polyp in the transverse colon, removed with a cold snare. Resected and retrieved. Clips (MR conditional) were placed. - The examination was otherwise normal on direct and retroflexion views. - The exam was otherwise normal to the cecum. Recommendation: - Patient has a contact number available for emergencies. The signs and symptoms of potential delayed complications were discussed with the patient. Return to normal activities tomorrow. Written discharge instructions were provided to the patient. - High fiber diet. - Discharge patient to home. - Continue present medications. - Await pathology results. - Telephone GI clinic for pathology results in 1 week. - Repeat colonoscopy for symptoms only. - Check Portal Online for Path Results.([email or web address]) - Resume Eliquis (apixaban) at prior dose today. - The findings and recommendations were discussed with the patient's family. Isacc Ruiz MD Isacc Ruiz MD 04/23/2017 11:14:52 AM This report has been signed electronically. Number of Addenda: 0 Note Initiated On: 04/23/2017 10:39 AM Estimated Blood Loss: Estimated blood loss: none.
[2017-04-23 11:30] VITALS: BP 134/91
== END 2017-04-23 11:55 | disposition home or self-care (01) ==
LOC: M OPP 09:26
PROVIDERS: ATTEND Internal Medicine Gastroenterology
DX: D50.0 Iron deficiency anemia secondary to blood loss (chronic) (principal); R19.5 Other fecal abnormalities; K62.1 Rectal polyp; D12.3 Benign neoplasm of transverse colon; K64.0 First degree hemorrhoids; K22.8 Other specified diseases of esophagus; K29.50 Unspecified chronic gastritis without bleeding; I48.91 Unspecified atrial fibrillation; I10 Essential (primary) hypertension; E78.5 Hyperlipidemia, unspecified; E10.9 Type 1 diabetes mellitus without complications; R12 Heartburn; K21.9 Gastro-esophageal reflux disease without esophagitis; M06.9 Rheumatoid arthritis, unspecified; M48.061 Spinal stenosis, lumbar region without neurogenic claudication; Z85.828 Personal history of other malignant neoplasm of skin; J44.9 Chronic obstructive pulmonary disease, unspecified; J45.909 Unspecified asthma, uncomplicated; G47.30 Sleep apnea, unspecified; R06.02 Shortness of breath; Z88.8 Allergy status to other drugs, medicaments and biological substances; Z79.52 Long term (current) use of systemic steroids; Z79.01 Long term (current) use of anticoagulants; Z79.899 Other long term (current) drug therapy

== ENCOUNTER → 2017-05-02 | Outpatient (REF) | payer MEDICARE, OTHER ==
[2017-05-02 13:27] LABS: INR 0.93
== END ==
LOC: M LABDRAW1 08:49
PROVIDERS: ATTEND Physical Medicine & Rehabilitation
DX: Z01.818 Encounter for other preprocedural examination (principal)

== ENCOUNTER → 2017-05-02 | Outpatient (REF) | payer MEDICARE, OTHER ==
[2017-05-02 13:13] LABS: BASO % 0.5 % (0.0-1.0); EOS # 0.1 10^3/uL (0.0-0.50); EOS % 0.8 % (0.0-3.0); IMMATURE GRANULOCYTE % 1.9 % (0-0); LYMPH # 1.5 10^3/uL (1.5-4.5); LYMPH % 20.1 % (24.0-44.0); MEAN CORPUSCULAR HEMOGLOBIN 27.7 pg (27.0-33.0); MEAN CORPUSCULAR HGB CONC 31.1 g/dl (32.0-36.5); MEAN CORPUSCULAR VOLUME 89.1 fl (80.0-96.0); MONO % 13.7 % (0.0-5.0); NEUTROPHILS # 4.6 10^3/uL (1.8-7.7); PLATELET COUNT, AUTOMATED 225 10^3/uL (150-450); RED CELL DISTRIBUTION WIDTH 14.9 % (11.5-14.5); WHITE BLOOD COUNT 7.4 10^3/uL (4.0-10.0)
[2017-05-02 13:37] LABS: ALBUMIN 3.8 GM/DL (3.2-5.2); ALBUMIN/GLOBULIN RATIO 1.31 (1.00-1.93); ALKALINE PHOSPHATASE 80 U/L (45-117); ALT/SGPT 25 U/L (12-78); ANION GAP 9 MEQ/L (8-16); AST/SGOT 13 U/L (7-37); BILIRUBIN,TOTAL 1.1 MG/DL (0.2-1.0); BLOOD UREA NITROGEN 14 MG/DL (7-18); CALCIUM LEVEL 8.7 MG/DL (8.8-10.2); CARBON DIOXIDE LEVEL 28 MEQ/L (21-32); CHLORIDE LEVEL 104 MEQ/L (98-107); CREATININE FOR GFR 0.82 MG/DL (0.70-1.30); GLOMERULAR FILTRATION RATE > 60.0 (>42); GLUCOSE, FASTING 97 MG/DL (83-110); POTASSIUM SERUM 3.6 MEQ/L (3.5-5.1); SODIUM LEVEL 141 MEQ/L (136-145); TOTAL PROTEIN 6.7 GM/DL (6.4-8.2)
[2017-05-02 13:46] LABS: ERYTHROCYTE SEDIMENTATION RATE 12 mm/hr (0-20)
== END ==
LOC: M LABDRAW1 08:55
PROVIDERS: ATTEND Internal Medicine Rheumatology
DX: Z01.818 Encounter for other preprocedural examination (principal); M05.79 Rheumatoid arthritis with rheumatoid factor of multiple sites without organ or systems involvement; Z51.81 Encounter for therapeutic drug level monitoring; Z79.01 Long term (current) use of anticoagulants; Z79.899 Other long term (current) drug therapy

== ENCOUNTER → 2017-06-20 | Outpatient (REF) | payer MEDICARE, OTHER ==
[2017-06-20 14:09] LABS: BASO % 0.7 % (0.0-1.0); EOS # 0.1 10^3/uL (0.0-0.50); EOS % 1.5 % (0.0-3.0); HEMATOCRIT 38.3 % (42.0-52.0); IMMATURE GRANULOCYTE # 0.1 10^3/uL (0-0); IMMATURE GRANULOCYTE % 1.7 % (0-0); LYMPH # 1.7 10^3/uL (1.5-4.5); LYMPH % 28.1 % (24.0-44.0); MEAN CORPUSCULAR HEMOGLOBIN 27.8 pg (27.0-33.0); MEAN CORPUSCULAR HGB CONC 31.3 g/dl (32.0-36.5); MEAN CORPUSCULAR VOLUME 88.7 fl (80.0-96.0); MONO # 0.9 10^3/uL (0.0-0.8); MONO % 14.5 % (0.0-5.0); NEUTROPHILS # 3.2 10^3/uL (1.8-7.7); NEUTROPHILS % 53.5 % (36.0-66.0); PLATELET COUNT, AUTOMATED 212 10^3/uL (150-450); RED BLOOD COUNT 4.32 10^6/uL (4.30-6.10); RED CELL DISTRIBUTION WIDTH 14.9 % (11.5-14.5); WHITE BLOOD COUNT 6.1 10^3/uL (4.0-10.0)
[2017-06-20 14:53] LABS: ALBUMIN 4.2 GM/DL (3.2-5.2); ALBUMIN/GLOBULIN RATIO 1.75 (1.00-1.93); ALKALINE PHOSPHATASE 76 U/L (45-117); ALT/SGPT 47 U/L (12-78); ANION GAP 9 MEQ/L (8-16); AST/SGOT 25 U/L (7-37); BILIRUBIN,TOTAL 1.2 MG/DL (0.2-1.0); BLOOD UREA NITROGEN 21 MG/DL (7-18); CALCIUM LEVEL 8.4 MG/DL (8.8-10.2); CARBON DIOXIDE LEVEL 28 MEQ/L (21-32); CHLORIDE LEVEL 103 MEQ/L (98-107); CREATININE FOR GFR 0.87 MG/DL (0.70-1.30); GLOMERULAR FILTRATION RATE > 60.0 (>42); GLUCOSE, FASTING 104 MG/DL (83-110); POTASSIUM SERUM 3.9 MEQ/L (3.5-5.1); SODIUM LEVEL 140 MEQ/L (136-145); TOTAL PROTEIN 6.6 GM/DL (6.4-8.2)
== END ==
LOC: M LABDRAW1 13:39
DX: M05.79 Rheumatoid arthritis with rheumatoid factor of multiple sites without organ or systems involvement (principal); Z79.899 Other long term (current) drug therapy
CPT/HCPCS: 80053

== ENCOUNTER → 2017-07-23 | Outpatient (REF) | payer MEDICARE, OTHER | LOC: M LAB REF 11:20 | DX: R19.7 Diarrhea, unspecified (principal) | CPT/HCPCS: 87507 ==

== ENCOUNTER → 2017-08-04 | Outpatient (REF) | payer MEDICARE, OTHER ==
[2017-08-04 14:31] LABS: C REACTIVE PROTEIN QUANTITATIV < 0.30 MG/DL (0.00-0.30)
[2017-08-04 14:31] LABS: RHEUMATOID FACTOR QUANT < 10.0 IU/ML (0-15.0)
[2017-08-06 00:06] LABS: CYCLIC CITRULLINATED PEPTIDE 36 units (0-19)
[2017-08-06 00:06] LABS: ANTINUCLEAR ANTIBODIES DIRECT Negative (Negative)
== END ==
LOC: M LAB REF 13:21
DX: M06.9 Rheumatoid arthritis, unspecified (principal)
CPT/HCPCS: 86140

== ENCOUNTER → 2017-08-28 | Outpatient (REF) | payer MEDICARE, OTHER ==
[2017-08-28 13:55] LABS: INR 0.96; PROTHROMBIN TIME 12.9 SECONDS (12.4-14.5)
[2017-08-28 13:56] LABS: PARTIAL THROMBOPLASTIN TIME 29.6 SECONDS (26.8-37.9)
== END ==
LOC: M LAB REF 13:10
DX: M47.812 Spondylosis without myelopathy or radiculopathy, cervical region (principal); Z79.01 Long term (current) use of anticoagulants
CPT/HCPCS: 85610

== ENCOUNTER → 2017-11-10 | Outpatient (REF) | payer MEDICARE, OTHER | LOC: M LAB REF 10:28 | DX: L83 Acanthosis nigricans (principal) | CPT/HCPCS: 88305 ==

== ENCOUNTER → 2018-01-16 | Outpatient (REF) | payer OTHER, MEDICARE ==
[2018-01-16 16:24] LABS: BLOOD UREA NITROGEN 18 MG/DL (7-18)
[2018-01-16 16:24] LABS: GLOMERULAR FILTRATION RATE > 60.0 (>42)
== END ==
LOC: M LABDRAW1 11:15
DX: M47.812 Spondylosis without myelopathy or radiculopathy, cervical region (principal)

== ENCOUNTER → 2018-04-02 | Outpatient (REF) | payer MEDICARE, OTHER ==
[2018-04-02 19:42] LABS: BASO % 0.4 % (0.0-1.0); EOS % 0.2 % (0.0-3.0); HEMATOCRIT 41.9 % (42.0-52.0); HEMOGLOBIN 12.9 g/dl (13.5-17.5); IMMATURE GRANULOCYTE % 1.5 % (0-3.0); LYMPH # 0.8 10^3/uL (1.5-4.5); LYMPH % 8.4 % (24.0-44.0); MEAN CORPUSCULAR HGB CONC 30.8 g/dl (32.0-36.5); MEAN CORPUSCULAR VOLUME 91.1 fl (80.0-96.0); MONO # 0.7 10^3/uL (0.0-0.8); MONO % 7.8 % (0.0-5.0); NEUTROPHILS # 7.6 10^3/uL (1.8-7.7); NEUTROPHILS % 81.7 % (36.0-66.0); PLATELET COUNT, AUTOMATED 233 10^3/uL (150-450); RED CELL DISTRIBUTION WIDTH 15.2 % (11.5-14.5); WHITE BLOOD COUNT 9.3 10^3/uL (4.0-10.0)
[2018-04-02 20:06] LABS: ALBUMIN 4.3 GM/DL (3.2-5.2); ALBUMIN/GLOBULIN RATIO 1.54 (1.00-1.93); ALKALINE PHOSPHATASE 74 U/L (45-117); ALT/SGPT 28 U/L (12-78); ANION GAP 8 MEQ/L (8-16); AST/SGOT 17 U/L (7-37); BILIRUBIN,TOTAL 1.2 MG/DL (0.2-1.0); BLOOD UREA NITROGEN 17 MG/DL (7-18); C REACTIVE PROTEIN QUANTITATIV < 0.30 MG/DL (0.00-0.30); CALCIUM LEVEL 9.3 MG/DL (8.8-10.2); CARBON DIOXIDE LEVEL 29 MEQ/L (21-32); CHLORIDE LEVEL 103 MEQ/L (98-107); CREATININE FOR GFR 0.81 MG/DL (0.70-1.30); GLOMERULAR FILTRATION RATE > 60.0 (>35); GLUCOSE, FASTING 106 MG/DL (70-100); POTASSIUM SERUM 4.4 MEQ/L (3.5-5.1); SODIUM LEVEL 140 MEQ/L (136-145); TOTAL PROTEIN 7.1 GM/DL (6.4-8.2)
[2018-04-02 20:27] LABS: ERYTHROCYTE SEDIMENTATION RATE 5 mm/hr (0-20)
== END ==
LOC: M SFHCLERA 14:24
DX: M05.9 Rheumatoid arthritis with rheumatoid factor, unspecified (principal)
CPT/HCPCS: 80053

== ENCOUNTER → 2018-05-27 | Outpatient (REF) | payer MEDICARE, OTHER ==
[~2018-05-27] MED LIST changes: -ALL10TAB27 PO; +ALL10TAB28 PO; -GABA-282 PO; +GABA-843 PO; -PANT40TA2 PO; +PANT40TA3 PO; +RANI75TA15 PO; -RANI75TA9 PO
[2018-05-27 18:58] LABS: INR 1.02; PROTHROMBIN TIME 13.6 SECONDS (12.1-14.4)
[2018-05-27 18:59] LABS: PARTIAL THROMBOPLASTIN TIME 35.8 SECONDS (25.4-37.6)
== END ==
LOC: M LABDRAW1 17:20
PROVIDERS: ATTEND Physical Medicine & Rehabilitation
DX: M51.9 Unspecified thoracic, thoracolumbar and lumbosacral intervertebral disc disorder (principal); Z79.01 Long term (current) use of anticoagulants

== ENCOUNTER → 2018-06-16 | Outpatient (REF) | payer MEDICARE, OTHER ==
[2018-06-16 17:39] LABS: BASO # 0.1 10^3/uL (0.0-0.2); BASO % 0.6 % (0.0-1.0); EOS # 0.1 10^3/uL (0.0-0.50); EOS % 1.7 % (0.0-3.0); HEMATOCRIT 36.9 % (42.0-52.0); HEMOGLOBIN 11.6 g/dl (13.5-17.5); LYMPH # 1.4 10^3/uL (1.5-4.5); LYMPH % 17.5 % (24.0-44.0); MEAN CORPUSCULAR HEMOGLOBIN 28.1 pg (27.0-33.0); MEAN CORPUSCULAR HGB CONC 31.4 g/dl (32.0-36.5); MEAN CORPUSCULAR VOLUME 89.3 fl (80.0-96.0); MONO # 1.1 10^3/uL (0.0-0.8); NEUTROPHILS % 64.9 % (36.0-66.0); PLATELET COUNT, AUTOMATED 207 10^3/uL (150-450); RED BLOOD COUNT 4.13 10^6/uL (4.30-6.10); WHITE BLOOD COUNT 7.7 10^3/uL (4.0-10.0)
[2018-06-16 17:40] LABS: ALBUMIN 3.8 GM/DL (3.2-5.2); ALT/SGPT 37 U/L (12-78); BILIRUBIN,TOTAL 1.3 MG/DL (0.2-1.0); BLOOD UREA NITROGEN 19 MG/DL (7-18); C REACTIVE PROTEIN QUANTITATIV < 0.30 MG/DL (0.00-0.30); CALCIUM LEVEL 8.7 MG/DL (8.8-10.2); CARBON DIOXIDE LEVEL 25 MEQ/L (21-32); CHLORIDE LEVEL 104 MEQ/L (98-107); CREATININE FOR GFR 0.97 MG/DL (0.70-1.30); GLOMERULAR FILTRATION RATE > 60.0 (>35); GLUCOSE, FASTING 113 MG/DL (70-100); POTASSIUM SERUM 3.9 MEQ/L (3.5-5.1); SODIUM LEVEL 140 MEQ/L (136-145); TOTAL PROTEIN 6.5 GM/DL (6.4-8.2)
[2018-06-16 18:17] LABS: ERYTHROCYTE SEDIMENTATION RATE 8 mm/hr (0-20)
== END ==
LOC: M SFHCPLAZ 15:25
PROVIDERS: ATTEND Internal Medicine Rheumatology
DX: M05.9 Rheumatoid arthritis with rheumatoid factor, unspecified (principal)
CPT/HCPCS: 36415; 80053; 85025; 85652; 86140; G0463

== ENCOUNTER → 2018-07-06 | Outpatient (REF) | payer MEDICARE, OTHER ==
[2018-07-06 16:27] LABS: PROTHROMBIN TIME 13.3 SECONDS (12.1-14.4)
[2018-07-06 16:28] LABS: PARTIAL THROMBOPLASTIN TIME 32.9 SECONDS (25.4-37.6)
== END ==
LOC: M LABDRAW1 15:35
PROVIDERS: ATTEND Physical Medicine & Rehabilitation
DX: Z01.812 Encounter for preprocedural laboratory examination (principal); M48.02 Spinal stenosis, cervical region; M47.812 Spondylosis without myelopathy or radiculopathy, cervical region; M50.30 Other cervical disc degeneration, unspecified cervical region

== ENCOUNTER → 2018-09-15 | Outpatient (REF) | payer MEDICARE, OTHER ==
[~2018-09-15] MED LIST changes: -ASPI1TAB PO; +ASPI81TA26 PO; +CICL0.7716 TOP; -[UNRECOGNIZED DRUG - CODE] TOP
[2018-09-15 15:55] LABS: BASO % 0.5 % (0.0-1.0); EOS # 0.1 10^3/uL (0.0-0.50); EOS % 1.5 % (0.0-3.0); HEMATOCRIT 40.9 % (42.0-52.0); HEMOGLOBIN 12.9 g/dl (13.5-17.5); LYMPH # 1.1 10^3/uL (1.5-4.5); LYMPH % 18.5 % (24.0-44.0); MEAN CORPUSCULAR HEMOGLOBIN 28.6 pg (27.0-33.0); MEAN CORPUSCULAR HGB CONC 31.5 g/dl (32.0-36.5); MEAN CORPUSCULAR VOLUME 90.7 fl (80.0-96.0); MONO # 0.9 10^3/uL (0.0-0.8); MONO % 15.2 % (0.0-5.0); NEUTROPHILS # 3.8 10^3/uL (1.8-7.7); NEUTROPHILS % 62.6 % (36.0-66.0); PLATELET COUNT, AUTOMATED 214 10^3/uL (150-450); RED BLOOD COUNT 4.51 10^6/uL (4.30-6.10)
[2018-09-15 16:19] LABS: ALBUMIN 4.2 GM/DL (3.2-5.2); ALT/SGPT 28 U/L (12-78); BILIRUBIN,TOTAL 1.2 MG/DL (0.2-1.0); BLOOD UREA NITROGEN 13 MG/DL (7-18); C REACTIVE PROTEIN QUANTITATIV < 0.30 MG/DL (0.00-0.30); CALCIUM LEVEL 9.3 MG/DL (8.8-10.2); CARBON DIOXIDE LEVEL 31 MEQ/L (21-32); CHLORIDE LEVEL 107 MEQ/L (98-107); CREATININE FOR GFR 0.78 MG/DL (0.70-1.30); GLOMERULAR FILTRATION RATE > 60.0 (>35); GLUCOSE, FASTING 84 MG/DL (70-100); POTASSIUM SERUM 4.2 MEQ/L (3.5-5.1); SODIUM LEVEL 141 MEQ/L (136-145); TOTAL PROTEIN 6.8 GM/DL (6.4-8.2)
[2018-09-15 17:16] LABS: ERYTHROCYTE SEDIMENTATION RATE 9 mm/hr (0-20)
== END ==
LOC: M SFHCPLAZ 13:39
PROVIDERS: ATTEND Internal Medicine Rheumatology
DX: M05.9 Rheumatoid arthritis with rheumatoid factor, unspecified (principal)
CPT/HCPCS: 36415; 80053; 85025; 85652; 86140; G0463

== ENCOUNTER → 2018-12-22 | Outpatient (CLI) | payer MEDICARE, OTHER ==
[~2018-12-22] MED LIST changes: -ALL10TAB28 PO; +ALL10TAB29 PO; +ATOR80TA59 PO; +CALCCAP4 PO; +DICL1GEL3 TOP; -FLON1SPR; +FLON1SPR NARES; +FOLI1TAB11 PO; +METF-791 PO; +METH2.5T48 PO; +PRED25TA PO; +PROBCAP14 PO; +RANI150T14 PO; +VITA-144 PO
[2018-12-22 17:32] LABS: BASO # 0.1 10^3/uL (0.0-0.2); BASO % 0.7 % (0.0-1.0); EOS # 0.1 10^3/uL (0.0-0.50); EOS % 1.5 % (0.0-3.0); HEMATOCRIT 40.7 % (42.0-52.0); HEMOGLOBIN 13.2 g/dl (13.5-17.5); LYMPH % 13.5 % (24.0-44.0); MEAN CORPUSCULAR HEMOGLOBIN 30.3 pg (27.0-33.0); MEAN CORPUSCULAR HGB CONC 32.4 g/dl (32.0-36.5); MEAN CORPUSCULAR VOLUME 93.6 fl (80.0-96.0); MONO # 0.9 10^3/uL (0.0-0.8); MONO % 12.1 % (0.0-5.0); NEUTROPHILS # 5.1 10^3/uL (1.8-7.7); NEUTROPHILS % 70.3 % (36.0-66.0); PLATELET COUNT, AUTOMATED 210 10^3/uL (150-450); RED BLOOD COUNT 4.35 10^6/uL (4.30-6.10); WHITE BLOOD COUNT 7.2 10^3/uL (4.0-10.0)
[2018-12-22 17:47] LABS: ALBUMIN 4.1 GM/DL (3.2-5.2); ALT/SGPT 36 U/L (12-78); BILIRUBIN,TOTAL 1.4 MG/DL (0.2-1.0); BLOOD UREA NITROGEN 12 MG/DL (7-18); C REACTIVE PROTEIN QUANTITATIV < 0.30 MG/DL (0.00-0.30); CALCIUM LEVEL 9.2 MG/DL (8.8-10.2); CARBON DIOXIDE LEVEL 30 MEQ/L (21-32); CHLORIDE LEVEL 105 MEQ/L (98-107); CREATININE FOR GFR 0.97 MG/DL (0.70-1.30); GLOMERULAR FILTRATION RATE > 60.0 (>35); GLUCOSE, FASTING 111 MG/DL (70-100); POTASSIUM SERUM 4.3 MEQ/L (3.5-5.1); SODIUM LEVEL 141 MEQ/L (136-145); TOTAL PROTEIN 6.8 GM/DL (6.4-8.2)
[2018-12-22 21:08] LABS: ERYTHROCYTE SEDIMENTATION RATE 8 mm/hr (0-20)
== END ==
LOC: M LAB 15:58
PROVIDERS: ATTEND Internal Medicine Rheumatology
DX: M05.9 Rheumatoid arthritis with rheumatoid factor, unspecified (principal)
CPT/HCPCS: 36415; 80053; 85025; 85652; 86140; G0463

== ENCOUNTER → 2019-01-25 | Outpatient (REF) | payer MEDICARE, OTHER ==
[~2019-01-25] MED LIST changes: +ALL10TAB28 PO; -ALL10TAB29 PO; -ATOR80TA59 PO; -CALCCAP4 PO; -DICL1GEL3 TOP; +FLON1SPR; -FLON1SPR NARES; -FOLI1TAB11 PO; -METF-791 PO; -METH2.5T48 PO; -PRED25TA PO; -PROBCAP14 PO; -RANI150T14 PO; -VITA-144 PO
[2019-01-25 13:57] LABS: ALBUMIN 4.1 GM/DL (3.2-5.2); ALT/SGPT 26 U/L (12-78); BILIRUBIN,TOTAL 1.3 MG/DL (0.2-1.0); BLOOD UREA NITROGEN 24 MG/DL (7-18); CARBON DIOXIDE LEVEL 30 MEQ/L (21-32); CHLORIDE LEVEL 103 MEQ/L (98-107); CHOLESTEROL LEVEL 122 MG/DL (<200); CHOLESTEROL RISK RATIO 2.837 (<5); CREATININE FOR GFR 0.99 MG/DL (0.70-1.30); GLOMERULAR FILTRATION RATE > 60.0 (>35); GLUCOSE, FASTING 106 MG/DL (70-100); HDL CHOLESTEROL 43 MG/DL (>40); LDL CHOLESTEROL 64 MG/DL (<100); NON-HDL-C 79 MG/DL; POTASSIUM SERUM 3.8 MEQ/L (3.5-5.1); SODIUM LEVEL 141 MEQ/L (136-145); TOTAL PROTEIN 6.9 GM/DL (6.4-8.2); TRIGLYCERIDES LEVEL 73 MG/DL (<150)
[2019-01-25 13:58] LABS: TOTAL 25(OH) VITAMIN D 54.7 NG/ML (30.0-100.0)
[2019-01-25 14:31] LABS: MALB URINE SIEMENS 25.9 MG/L; MAU/CREAT RATIO 19.4 MCG/MG (0.0-30.0)
== END ==
LOC: M LABDRAW1 12:19
PROVIDERS: ATTEND Nurse Practitioner Family
DX: E11.9 Type 2 diabetes mellitus without complications (principal); E78.2 Mixed hyperlipidemia; E55.9 Vitamin D deficiency, unspecified

== ENCOUNTER → 2019-02-23 | Outpatient (REF) | payer MEDICARE, OTHER ==
[~2019-02-23] MED LIST changes: -ALL10TAB28 PO; +ALL10TAB29 PO
[2019-02-26 00:08] LABS: Lyme Disease IgG/IgM Antibodie <0.91 ISR (0.00-0.90); Lyme Disease IgM Ab Quantitati <0.80 index (0.00-0.79)
== END ==
LOC: M LAB REF 19:34
PROVIDERS: ATTEND Nurse Practitioner Family
DX: Z11.59 Encounter for screening for other viral diseases (principal)

== ENCOUNTER → 2019-03-01 | Outpatient (CLI) | payer MEDICARE, OTHER ==
[2019-03-01 16:49] LABS: HEMATOCRIT 40.6 % (42.0-52.0); HEMOGLOBIN 12.6 g/dl (13.5-17.5); MEAN CORPUSCULAR HEMOGLOBIN 30.1 pg (27.0-33.0); MEAN CORPUSCULAR VOLUME 97.1 fl (80.0-96.0); PLATELET COUNT, AUTOMATED 230 10^3/uL (150-450); RED BLOOD COUNT 4.18 10^6/uL (4.30-6.10); WHITE BLOOD COUNT 7.1 10^3/uL (4.0-10.0)
[2019-03-01 16:57] LABS: ALBUMIN 3.9 GM/DL (3.2-5.2); ALT/SGPT 29 U/L (12-78); BILIRUBIN,TOTAL 1.1 MG/DL (0.2-1.0); BLOOD UREA NITROGEN 15 MG/DL (7-18); C REACTIVE PROTEIN QUANTITATIV < 0.30 MG/DL (0.00-0.30); CALCIUM LEVEL 8.6 MG/DL (8.8-10.2); CARBON DIOXIDE LEVEL 30 MEQ/L (21-32); CHLORIDE LEVEL 107 MEQ/L (98-107); CREATININE FOR GFR 0.76 MG/DL (0.70-1.30); GLOMERULAR FILTRATION RATE > 60.0 (>35); GLUCOSE, FASTING 123 MG/DL (70-100); POTASSIUM SERUM 3.7 MEQ/L (3.5-5.1); SODIUM LEVEL 143 MEQ/L (136-145); TOTAL PROTEIN 6.9 GM/DL (6.4-8.2)
[2019-03-01 17:27] LABS: ERYTHROCYTE SEDIMENTATION RATE 10 mm/hr (0-20)
[2019-03-03 16:11] LABS: URIC ACID 2.5 MG/DL (3.5-7.2)
== END ==
LOC: M WUC 13:57
PROVIDERS: ATTEND Internal Medicine Rheumatology
DX: M06.9 Rheumatoid arthritis, unspecified (principal)

== ENCOUNTER 2019-03-15 13:12 | Inpatient (IN) | payer MEDICARE, OTHER ==
[~2019-03-15] VITALS: Ht 167.6 cm; Wt 97.5 kg
[~2019-03-15 13:12] MED LIST changes: -FLON1SPR; +FLON1SPR NARES
--- NOTE | 2019-03-15 14:23 | REP ---
Unenhanced CT of the head: 03/15/2019. Indication: Head trauma. Technique: Unenhanced axial images of the brain were obtained from skull base to vertex. Findings: There is no acute intracranial hemorrhage, acute cortical infarction, mass effect or hydrocephalous. No acute calvarial fracture is detected. Volume loss is present. Scattered areas of hypoattenuation throughout the white matter are noted most consistent with sequelae of chronic microangiopathic ischemic disease. There is a small calcified focus along the inner table of the right frontal lobe likely representing a tiny involuted meningioma. Impression: No acute intracranial process. Electronically Signed by Flaco Stevens DO 03/15/2019 02:25 P
--- NOTE | 2019-03-15 14:57 | REP ---
CT cervical spine: 03/15/2019. Indication: Cervical spine trauma. Technique: Axial images of the cervical spine were obtained with sagittal and coronal reconstructions provided. Findings: There is no acute fracture, subluxation or dislocation. The craniocervical junction is somewhat suboptimally evaluated secondary to quantum model artifact. There is straightening of the cervical lordosis with significant multilevel spondylosis. No hematoma or additional acute post traumatic findings within the neck soft tissues. Impression: No acute post traumatic injury of the cervical spine. Electronically Signed by Flaco Stevens DO 03/15/2019 02:58 P
[2019-03-15 15:30] LABS: BASO % 0.5 % (0.0-1.0); EOS % 0.3 % (0.0-3.0); HEMATOCRIT 42.3 % (42.0-52.0); HEMOGLOBIN 13.7 g/dl (13.5-17.5); LYMPH # 0.4 10^3/uL (1.5-5.0); LYMPH % 5.2 % (24.0-44.0); MEAN CORPUSCULAR HEMOGLOBIN 31.2 pg (27.0-33.0); MEAN CORPUSCULAR HGB CONC 32.4 g/dl (32.0-36.5); MEAN CORPUSCULAR VOLUME 96.4 fl (80.0-96.0); MONO # 1.3 10^3/uL (0.0-0.8); MONO % 16.7 % (0.0-5.0); PLATELET COUNT, AUTOMATED 212 10^3/uL (150-450); RED BLOOD COUNT 4.39 10^6/uL (4.30-6.10); WHITE BLOOD COUNT 7.8 10^3/uL (4.0-10.0)
[2019-03-15] MEDS ORDERED: NS 500 ML IV ONE (15:30)
[2019-03-15 16:02] LABS: ALBUMIN 3.9 GM/DL (3.2-5.2); ALT/SGPT 267 U/L (12-78); BILIRUBIN,DIRECT 0.9 MG/DL (0.0-0.2); BILIRUBIN,TOTAL 3.2 MG/DL (0.2-1.0); BLOOD UREA NITROGEN 39 MG/DL (7-18); CALCIUM LEVEL 9.2 MG/DL (8.8-10.2); CARBON DIOXIDE LEVEL 28 MEQ/L (21-32); CHLORIDE LEVEL 99 MEQ/L (98-107); CK-MB VALUE MASS 3.9 NG/ML (<3.6); CPK CREATINE PHOSPHOKINASE 659 U/L (39-308); CREATININE FOR GFR 1.79 MG/DL (0.70-1.30); GLUCOSE, FASTING 167 MG/DL (70-100); LIPASE 166 U/L (73-393); MB/CK RELATIVE INDEX 0.59 (< OR =4); POTASSIUM SERUM 3.6 MEQ/L (3.5-5.1); SODIUM LEVEL 136 MEQ/L (136-145); TOTAL PROTEIN 7.1 GM/DL (6.4-8.2); TROPONIN I < 0.02 NG/ML (< 0.10)
[2019-03-15] MEDS ORDERED: NS 1,000 ML IV SCH (16:08)
--- NOTE | 2019-03-15 17:05 | REP ---
CT thoracic spine: 03/15/2019. Indication: Thoracic spine trauma. Comparison: None. Technique: Axial images of the thoracic spine were obtained with the sagittal and coronal reconstructions provided. Findings: Please refer to dedicated CT chest, abdomen and pelvis reports for additional details. There is no evidence of acute fracture, subluxation or dislocation. There is no evidence of hemorrhage within the spinal canal. Slightly exaggerated upper thoracic kyphosis is noted. Multilevel degenerative sequelae of the thoracic spine are noted without severe spinal canal stenosis detected. Impression: No acute post traumatic osseous injuries of the thoracic spine detected. Electronically Signed by Flaco Stevens DO 03/15/2019 04:56 P
--- NOTE | 2019-03-15 17:13 | REP ---
CT lumbar spine: 03/15/2019. Indication: Lumbar spine trauma. Comparison: None. Technique: Axial images of the lumbar spine were obtained with sagittal and coronal reconstructions provided. Findings: There is no evidence of acute fracture, subluxation or dislocation. Disc space settling and vacuum disc phenomenon are noted at each lumbar disc level. Chronic appearing Schmorl's nodes are present within the superior and inferior L2 as well as the superior L3 end plates. Diffuse disc bulging and multilevel osteophytic spurring are noted with the greatest narrowing on the right at L4/L5. There is no evidence of severe narrowing of the spinal canal. There is no evidence of hemorrhage within the spinal canal. Please see dedicated CT abdomen/pelvis report for additional details. Impression: There is no evidence of an acute post-traumatic injury of the lumbar spine. Extensive multilevel degenerative sequelae most pronounced on the right at L4/L5. Electronically Signed by Flaco Stevens DO 03/15/2019 05:04 P
[2019-03-15] MEDS ORDERED: METH2.5T48 PO (17:18)
[2019-03-15] MEDS ORDERED: PROBCAP14 PO (17:18)
[2019-03-15] MEDS ORDERED: METF-791 PO (17:18)
[2019-03-15] MEDS ORDERED: CALCCAP4 PO (17:18)
[2019-03-15] MEDS ORDERED: PRED25TA PO (17:18)
[2019-03-15] MEDS ORDERED: VITA-144 PO (17:18)
[2019-03-15] MEDS ORDERED: ATOR80TA59 PO (17:18)
[2019-03-15] MEDS ORDERED: RANI150T14 PO (17:18)
[2019-03-15] MEDS ORDERED: FOLI1TAB11 PO (17:18)
[2019-03-15] MEDS ORDERED: DICL1GEL3 TOP (17:20)
[2019-03-15] MEDS ORDERED: FLUTICASONE PROP 0.05% NASAL SPRAY 16 GM (FLONASE) NARES PRN (18:30)
[2019-03-15] MEDS ORDERED: IPRATROPIUM 0.5MG/ALBUTEROL 2.5MG INH SOL UD 3ML (DUONEB)(J7620) INH PRN (18:30)
[2019-03-15] MEDS ORDERED: DEXTROSE 50% 50 ML SYRINGE IV PRN (18:45)
[2019-03-15] MEDS ORDERED: GLUCOSE 4 GM CHEW TABLET PO PRN (18:45)
[2019-03-15] MEDS ORDERED: GLUCAGON FOR INJ 1 MG VIAL (J1610) SC PRN (18:45)
--- NOTE | 2019-03-15 18:52 | HPEPDOC ---
General Date of Admission 03/15/19 Date of Service: Mar 15, 2019 Attending Physician: MIKE HIGH DO Chief Complaint The patient is a 79-year-old male admitted with a reason for visit of Fall On Thinners. Source: Patient Exam Limitations: No limitations, Mild cognitive slowing Timing/Duration: Day(s) Associated Symptoms: Nausea, Vomiting, Mechanical fall History of Present Illness Patient is 79 years old male with medical history of rheumatoid arthritis, multiple back surgeries, hypertension, asthma, diabetes mellitus type 2, arthritis presented hospital with mild cognitive slowing. According to his patient for past 2 days became more forgetful. Patient stated that 3 days ago he fell in his bathroom, hit his head, presumably he lost his consciousness. Patient denied any urinary incontinence or seizures. 2 days ago patient developed one episode of vomiting and multiple episodes of diarrhea. Patient did have very poor oral intake, did not drink enough fluid. In ER patient was found to have on CT head no stroke, no acute bleeding, CT lumbar, thoracic, cervical was negative. Also patient was found to have transaminitis with total bilirubin 3.2, alkaline phosphatase 266 Patient denied fever, chills, shortness of breath, palpitations, dysuria Home Medications Scheduled Apixaban (Eliquis) 5 Mg Tab, 5 MG PO BID, (Reported) Atorvastatin Calcium (Atorvastatin Calcium) 80 Mg Tablet, 80 MG PO QHS, (Reported) Calcium Carbonate/Vitamin D3 (Calcium 600 + Vit D 400 Softgl) 1 Each Capsule, 1 CAP PO DAILY, (Reported) Canagliflozin (Invokana) 100 Mg Tab, 100 MG PO DAILY, (Reported) Cetirizine HCl (Cetirizine HCl) 10 Mg Tab, 10 MG PO DAILY, (Reported) Cholecalciferol (Vitamin D3) (Vitamin D3) 1,000 Unit Tablet, 1,000 UNIT PO DAILY, (Reported) Dulaglutide (Trulicity) 0.75 Mg/0.5 Ml Inj, 1.5 MG SC QWEEK, (Reported) SUNDAYS Fluticasone Propion/Salmeterol (Advair Hfa 230-21 Mcg Inhaler) 1 Aer Aer, 2 PUFF INH BID, (Reported) Folic Acid (Folic Acid) 1 Mg Tablet, 1 MG PO DAILY, (Reported) Gabapentin (Gabapentin) 300 Mg Cap, 600 MG PO QHS, (Reported) Insulin Detemir (Levemir Flextouch) 100 Unit/Ml Inj, 15 UNIT SC QHS, (Reported) Lactobacillus Acidophilus (Probiotic) 1 Each Capsule, 1 CAP PO DAILY, (Reported) Lisinopril (Lisinopril) 10 Mg Tab, 20 MG PO QHS, (Reported) Metformin HCl (Metformin HCl ER) 500 Mg Tab.er.24h, 2,000 MG PO DAILY, (Reported) Methotrexate Sodium (Methotrexate) 2.5 Mg Tablet, 7.5 MG PO 1XWK, (Reported) Pantoprazole Sodium (Pantoprazole Sodium) 40 Mg Tab, 40 MG PO DAILY, (Reported) Prednisone (Prednisone) 2.5 Mg Tablet, 2.5 MG PO DAILY, (Reported) Pregabalin (Lyrica) 75 Mg Cap, 75 MG PO BID, (Reported) Ranitidine HCl (Ranitidine HCl) 150 Mg Tablet, 1 TAB PO QHS, (Reported) Verapamil HCl (Verapamil HCl) 40 Mg Tab, 40 MG PO BID, (Reported) Vit C/E/Zn/Coppr/Lutein/Zeaxan (Vision Formula 2 Softgel) 1 Tab Tab, 1 TAB PO DAILY, (Reported) Scheduled PRN Albuterol Sulfate (Proair Hfa) 108 Mcg/Act Aer, 2 PUFF INH PRN PRN for WHEEZING, (Reported) Diclofenac Sodium (Diclofenac Sodium) 1% 100GM Gel..gram., 2 GM TOP BID PRN for PAIN, (Reported) Apply to area of pain Fluticasone Propionate (Flonase Allergy Relief) 50 Mcg/Act Spr, 1 SPRAY NARES BID PRN for NASAL CONGESTION, (Reported) Ipratropium/Albuterol Sulfate (Combivent Respimat 20-100 Mcg) 1 Aer Aer, 1 PUFF INH QID PRN for SOB/WHEEZING, (Reported) Allergies Coded Allergies: leflunomide (Verified Allergy, Intermediate, ITCHY AND SWELLING, 03/15/19) buspirone (Verified Adverse Reaction, Intermediate, AGITIATION, 03/15/19) Past Medical History Medical History rheumatoid arthritis, multiple back surgeries, hypertension, asthma, diabetes mellitus type 2, arthritis Surgical History Multiple back and neck surgeries Family History Family history reviewed by me and found not pertinent Social History * Smoker: former Smoker Alcohol: Denies Drugs: denies A-FIB/CHADSVASC A-FIB History Current/History of A-Fib/PAF?: Yes Current PO Anticoag Therapy: Yes Review of Systems Constitutional: Denies: Chills, Fever Eyes: Denies: Pain, Vision change ENT: Denies: Ear Pain, Dysphagia Skin: Denies: Rash, Lesions Pulmonary: Denies: Dyspnea, Cough Cardiovascular: Denies: Chest Pain, Palpitations Gastrointestinal: Reports: Nausea, Vomiting Genitourinary: Denies: Dysuria, Frequency Hematologic: Denies: Bruising, Bleeding Excessively Endocrine: Denies: Polydipsia, Polyphagia Musculoskeletal: Reports: Back Pain; Denies: Neck Pain Neurological: Denies: Weakness, Numbness Psych: Reports: Mood Normal Physical Examination General Exam: Positive: Alert, Cooperative Eye Exam: Positive: Sclera icteric ENT Exam: Positive: Atraumatic Neck Exam: Positive: Supple; Negative: JVD Chest Exam: Positive: Clear to auscultation Heart Exam: Positive: Irregular Rhythm; Negative: Rate Normal Telemetry: Positive: Atrial fibrillation Abdomen Exam: Positive: BS Hyperactive; Negative: Normal bowel sounds Extremity Exam: Negative: Clubbing, Cyanosis Skin Exam: Positive: Nl turgor and temperature Neuro Exam: Positive: Strength at 5/5 X4 ext, Cranial Nerves 3-12 NL Psych Exam: Positive: Mental status NL, Mood NL, Oriented x 3 Vital Signs Vital Signs Date Time Temp Pulse Resp B/P (MAP) Pulse Ox O2 Delivery O2 Flow Rate FiO2 03/15/19 16:22 101 110/61 (77) 03/15/19 16:00 97 03/15/19 13:13 96.6 20 Room Air Laboratory Data Labs 24H Laboratory Tests 2 03/15/19 15:12: Activated Partial Thromboplast Time 30.9 03/15/19 15:13: Immature Granulocyte % (Auto) 1.3, White Blood Count 7.8, Red Blood Count 4.39, Hemoglobin 13.7, Hematocrit 42.3, Mean Corpuscular Volume 96.4H, Mean Corpuscular Hemoglobin 31.2, Mean Corpuscular Hemoglobin Concent 32.4, Red Cell Distribution Width 15.3H, Platelet Count 212, Neutrophils (%) (Auto) 76.0H, Lymphocytes (%) (Auto) 5.2L, Monocytes (%) (Auto) 16.7H, Eosinophils (%) (Auto) 0.3, Basophils (%) (Auto) 0.5, Neutrophils # (Auto) 6.0, Lymphocytes # (Auto) 0.4L, Monocytes # (Auto) 1.3H, Eosinophils # (Auto) 0.0, Basophils # (Auto) 0.0, Nucleated Red Blood Cells % (auto) 0.0, Anion Gap 9, Glomerular Filtration Rate 39.0, Calcium Level 9.2, Aspartate Amino Transf (AST/SGOT) 162H, Alanine Aminotransferase (ALT/SGPT) 267H, Alkaline Phosphatase 266H, Total Bilirubin 3.2H, Direct Bilirubin 0.9H, Total Creatine Kinase 659H, Creatine Kinase MB 3.9H, Creatine Kinase MB Relative Index 0.59, Troponin I < 0.02, Total Protein 7.1, Albumin 3.9, Albumin/Globulin Ratio 1.22, Lipase 166 CBC/BMP Laboratory Tests 03/15/19 15:13 Red Blood Count 4.39, Mean Corpuscular Volume 96.4 H, Mean Corpuscular Hemoglobin 31.2, Mean Corpuscular Hemoglobin Concent 32.4, Red Cell Distribution Width 15.3 H, Neutrophils (%) (Auto) 76.0 H, Lymphocytes (%) (Auto) 5.2 L, Monocytes (%) (Auto) 16.7 H, Eosinophils (%) (Auto) 0.3, Basophils (%) (Auto) 0.5, Neutrophils # (Auto) 6.0, Lymphocytes # (Auto) 0.4 L, Monocytes # (Auto) 1.3 H, Eosinophils # (Auto) 0.0, Basophils # (Auto) 0.0 Assessment/Plan Patient is 79 years old male with medical history of rheumatoid arthritis, multiple back surgeries, hypertension, asthma, diabetes mellitus type 2, arthritis presented hospital with mild cognitive slowing. According to his patient for past 2 days became more forgetful. Patient stated that 3 days ago he fell in his bathroom, hit his head, presumably he lost his consciousness. Patient denied any urinary incontinence or seizures. 2 days ago patient developed one episode of vomiting and multiple episodes of diarrhea. Patient did have very poor oral intake, did not drink enough fluid. In ER patient was found to have on CT head no stroke, no acute bleeding, CT lumbar, thoracic, cervical was negative. Also patient was found to have transaminitis with total bilirubin 3.2, alkaline phosphatase 266 Problems (1) Acute kidney injury Status: Acute Problem Text: Prerenal. Most likely secondary to dehydration Continue to mind her renal function (2) Hyperbilirubinemia Status: Acute Problem Text: Associated with transaminitis. Patient does not have fever, chills or abdominal pain. He has icterus Ultrasound of right upper quadrant ordered CT abdomen pending Continue to monitor liver function Hepatitis panel (3) Fall Status: Acute Problem Text: Patient stated that he felt because of slippery PT/OT (4) Closed head injury Status: Acute Problem Text: Neurological exam of cranial nerves benign Patient has mild cognitive impairment. 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
--- NOTE | 2019-03-15 18:57 | REP ---
CT chest without contrast: History: Trauma. Comparison chest x-ray August 04, 2016. CT findings: Preliminary digital billet checker radiograph demonstrates mild cardiomegaly. There is no evidence of pneumothorax or hemothorax. No pulmonary contusion is seen. There is minimal linear fibrosis in the bases. There is a granulomatous calcification along the minor fissure in the right middle lobe. There are minimal emphysematous changes in the apices. No mediastinal hematoma is seen. Vascular calcification is noted including coronary artery vascular calcification. No pericardial effusion is seen. No rib, sternal, T-spine or other fracture is appreciated. Impression: Vascular calcification and mildly prominent heart. No active disease. Electronically Signed by Eulogio Melchor MD 03/15/2019 08:01 P
--- NOTE | 2019-03-15 19:08 | REP ---
CT abdomen and pelvis without IV or oral contrast: History: Trauma. CT findings: There is no evidence of hemoperitoneum or pneumoperitoneum. The liver and the spleen are normal in size homogeneous in texture. No abnormalities noted in the gallbladder. No adrenal lesion is seen. Pancreas is unremarkable. There is a small peripheral cyst in the left mid kidney. Vascular calcification is noted. Normal caliber aorta. There are dystrophic calcifications in the mildly enlarged prostate. Bladder phillips are diffusely mildly thickened. No abdominal wall defect is seen. There is no evidence of free intraperitoneal air. Small and large intestinal bowel loops are unremarkable. Normal appendix is seen. Bone window settings show no pelvic, sacral, or lumbar spine fracture. No acute lower rib fracture is appreciated. Impression: No traumatic abnormality noted. Small cyst left mid kidney. Electronically Signed by Eulogio Melchor MD 03/15/2019 08:01 P
[2019-03-15 19:50] VITALS: BP 132/86
[2019-03-15] MEDS ORDERED: POTASSIUM CHLORIDE 10 MEQ SR TABLET PO ONE (20:00)
--- NOTE | 2019-03-15 20:05 | REPVR ---
PROCEDURE INFORMATION: Exam: US Abdomen Limited, Right Upper Quadrant Exam date and time: 03/15/2019 7:15 PM Clinical history: 79 years old, male; Abnormal findings; Abnormal lab test; Other: Hyperbilirubinemia; Additional info: Hyperbillirubinemia TECHNIQUE: Imaging protocol: Real-time ultrasound of the abdomen with image documentation. Examination was focused on the right upper quadrant. COMPARISON: CT ABD PELVIS W/O CONTRAST 03/15/2019 4:10 PM FINDINGS: Liver: Unremarkable. Gallbladder: Cholelithiasis and moderate gallbladder wall thickening. Common bile duct: No stones. No ductal dilatation. Pancreas: Suboptimally visualized. Right kidney: No mass. No definite stones. No hydronephrosis. IMPRESSION: Cholelithiasis and moderate gallbladder wall thickening. Acute or chronic cholecystitis could produce this appearance.If clinically indicated, HIDA scan would provide a more sensitive evaluation. Electronically signed by: Abner Williamson On 03/15/2019 20:05:44 PM
[2019-03-15] MEDS: ATORVASTATIN 20 MG TAB PO SCH (21:22)
[2019-03-15] MEDS: LEVEMIR (INSULIN DETEMIR) 1 UNITS/0.01ML SC SCH (21:22)
[2019-03-15] MEDS: VERAPAMIL 40 MG TAB PO SCH (21:24)
[2019-03-15] MEDS: LISINOPRIL 10 MG TAB PO SCH (21:24)
[2019-03-15] MEDS: APIXABAN 5 MG TAB (ELIQUIS) PO SCH (21:24)
[2019-03-15] MEDS: NS 1,000 ML IV SCH (21:25)
[2019-03-15] MEDS: PREGABALIN 75 MG CAP(LYRICA) PO SCH (21:25)
[2019-03-15] MEDS: GABAPENTIN 300 MG CAP PO SCH (21:25)
[2019-03-16 02:00] VITALS: BP 158/76
[2019-03-16] MEDS: ADVAIR HFA 230/21MCG INHALER INH SCH ×3 (02:31→18:16)
[2019-03-16] MEDS: NS 1,000 ML IV SCH (05:18)
[2019-03-16 06:00] VITALS: BP_SYST 140; BP_DIAS 85; BP_DIAS 89
[2019-03-16 06:23] LABS: HEMATOCRIT 36.7 % (42.0-52.0); HEMOGLOBIN 11.9 g/dl (13.5-17.5); MEAN CORPUSCULAR HEMOGLOBIN 30.7 pg (27.0-33.0); MEAN CORPUSCULAR HGB CONC 32.4 g/dl (32.0-36.5); MEAN CORPUSCULAR VOLUME 94.8 fl (80.0-96.0); PLATELET COUNT, AUTOMATED 195 10^3/uL (150-450); RED BLOOD COUNT 3.87 10^6/uL (4.30-6.10); WHITE BLOOD COUNT 6.4 10^3/uL (4.0-10.0)
[2019-03-16 06:43] LABS: BLOOD UREA NITROGEN 26 MG/DL (7-18); CALCIUM LEVEL 8.8 MG/DL (8.8-10.2); CARBON DIOXIDE LEVEL 26 MEQ/L (21-32); CHLORIDE LEVEL 106 MEQ/L (98-107); CREATININE FOR GFR 1.01 MG/DL (0.70-1.30); GLOMERULAR FILTRATION RATE > 60.0 (>35); GLUCOSE, FASTING 109 MG/DL (70-100); MAGNESIUM LEVEL 1.7 MG/DL (1.8-2.4); POTASSIUM SERUM 3.8 MEQ/L (3.5-5.1); SODIUM LEVEL 138 MEQ/L (136-145)
--- NOTE | 2019-03-16 07:41 | ECGEPIP ---
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
[2019-03-16] MEDS: HumaLOG INSULIN (NovoLOG) PER UNIT SC SCH ×3 (08:21→17:59)
[2019-03-16] MEDS: CETIRIZINE (ZyrTEC) 10 MG TAB PO SCH (08:24)
[2019-03-16] MEDS: VERAPAMIL 40 MG TAB PO SCH ×2 (08:24→20:39)
[2019-03-16] MEDS: FOLIC ACID 1 MG TAB PO SCH (08:24)
[2019-03-16] MEDS: predniSONE 2.5 MG TAB PO SCH (08:24)
[2019-03-16] MEDS: PREGABALIN 75 MG CAP(LYRICA) PO SCH ×2 (08:24→20:39)
[2019-03-16] MEDS: PANTOPRAZOLE 40MG TAB (PROTONIX) PO SCH (08:24)
[2019-03-16] MEDS: APIXABAN 5 MG TAB (ELIQUIS) PO SCH ×2 (08:24→20:38)
[2019-03-16] MEDS: VITAMIN D 1,000 INTERNATIONAL UNITS TABLET PO SCH (08:24)
[2019-03-16] MEDS: MAG SULF 1GM/100ML (MAG RUN) 1 GM in IV 1 EA IV SCH ×2 (11:17→13:11)
[2019-03-16 14:00] VITALS: BP 130/60
[2019-03-16 18:00] VITALS: BP 127/69
--- NOTE | 2019-03-16 18:35 | IPNPDOC ---
Date Seen The patient was seen on 03/16/19. Progress Note SUBJECTIVE: Patient appeared comfortable, in no significant distress. Reported having diarrhea, denies any nausea. Afebrile overnight. HR elevated this AM @110s but had since been back to normal. WBC 6.4. OBJECTIVE PHYSICAL EXAMINATION: VITAL SIGNS: Please see below. General: No acute distress, Alert Eyes: Normal sclera, EOMI HENT: Atraumatic, neck supple Cardiovascular: Normal rate Pulmonary: Clear to auscultation b/l, no wheezing MSK: L. posterior back soreness/tenderness GI: Soft, nondistended Skin: Warm and dry Neuro: CN grossly intact. No focal deficits. Strengths equal b/l. Psych: oriented x 3 LABORATORY DATA, IMAGING STUDIES, MICROBIOLOGY: Please see below. DVT prophylaxis ordered?: On Eliquis ASSESSMENT AND PLAN: 1. Hyperbilirubinemia and Transaminitis - f/u Hepatitis panel. No history of known hepatitis. - CT abdomen and abdominal US noted. Cholelithiasis with moderate GB thickening. No stone visualized in duct or CBD dilitation on US. - HIDA scan ordered. Will repeat liver profile. - Consider GI and/or Surgery consultation. - Patient appear very stable, no significant RUQ pain suggestive of cholecystitis. 2. LILIA - likely 2/2 dehydration. - IVF support. 3. Fall - PT/OT 4. head injury - neurological assessment with no abnormalities. Does not appear to have any cognitive impairment at this time. - CT head negative for acute findings. 5. Lumbar spinal stenosis 6. Afib? - c/w Eliquis. Reportedly seen by Dr. Josue/Johnny 2 years prior for tachycardia. VS[facility]&O[facility] Vital Signs/I&O Vital Signs Date Time Temp Pulse Resp B/P (MAP) Pulse Ox O2 Delivery O2 Flow Rate FiO2 03/16/19 14:00 97.5 76 18 130/60 (83) 99 03/15/19 13:13 Room Air I&O- Last 24 Hours up to 6 AM 03/16/19 06:00 Intake Total 2835 ml Output Total 500 ml Balance 2335 ml Laboratory Data 24H LABS Laboratory Tests 2 03/15/19 20:41: Bedside Glucose (Misc Panel) 139H 03/16/19 05:59: Nucleated Red Blood Cells % (auto) 0.0, Anion Gap 6L, Glomerular Filtration Rate > 60.0, Blood Urea Nitrogen 26H, Creatinine 1.01, Sodium Level 138, Potassium Level 3.8, Chloride Level 106, Carbon Dioxide Level 26, Calcium Level 8.8, Magnesium Level 1.7L 03/16/19 12:05: Ammonia 21 03/16/19 12:23: Bedside Glucose (Misc Panel) 163H CBC/BMP Laboratory Tests 03/16/19 05:59 Red Blood Count 3.87 L, Mean Corpuscular Volume 94.8, Mean Corpuscular Hemoglobin 30.7, Mean Corpuscular Hemoglobin Concent 32.4, Red Cell Distribution Width 15.2 H, Calcium Level 8.8 ANABEL LOYA MD Mar 16, 2019 18:35
[2019-03-16] MEDS: GABAPENTIN 300 MG CAP PO SCH (20:37)
[2019-03-16] MEDS: ATORVASTATIN 20 MG TAB PO SCH (20:37)
[2019-03-16] MEDS: LEVEMIR (INSULIN DETEMIR) 1 UNITS/0.01ML SC SCH (20:37)
[2019-03-16] MEDS: LISINOPRIL 10 MG TAB PO SCH (20:38)
[2019-03-16 22:00] VITALS: BP 126/68
[2019-03-17] VITALS (8 sets, daily range): BP systolic 92–188; BP diastolic 52–92
[2019-03-17 06:10] LABS: HEMATOCRIT 35.7 % (42.0-52.0); HEMOGLOBIN 11.6 g/dl (13.5-17.5); MEAN CORPUSCULAR HEMOGLOBIN 30.1 pg (27.0-33.0); MEAN CORPUSCULAR HGB CONC 32.5 g/dl (32.0-36.5); MEAN CORPUSCULAR VOLUME 92.5 fl (80.0-96.0); PLATELET COUNT, AUTOMATED 200 10^3/uL (150-450); RED BLOOD COUNT 3.86 10^6/uL (4.30-6.10); WHITE BLOOD COUNT 5.8 10^3/uL (4.0-10.0)
[2019-03-17 06:41] LABS: ALT/SGPT 154 U/L (12-78); BILIRUBIN,DIRECT 0.3 MG/DL (0.0-0.2); BILIRUBIN,TOTAL 1.4 MG/DL (0.2-1.0); BLOOD UREA NITROGEN 15 MG/DL (7-18); CALCIUM LEVEL 8.7 MG/DL (8.8-10.2); CARBON DIOXIDE LEVEL 28 MEQ/L (21-32); CHLORIDE LEVEL 104 MEQ/L (98-107); CREATININE FOR GFR 0.76 MG/DL (0.70-1.30); GLOMERULAR FILTRATION RATE > 60.0 (>35); GLUCOSE, FASTING 107 MG/DL (70-100); POTASSIUM SERUM 3.4 MEQ/L (3.5-5.1); SODIUM LEVEL 138 MEQ/L (136-145); TOTAL PROTEIN 6.5 GM/DL (6.4-8.2)
[2019-03-17] MEDS: HumaLOG INSULIN (NovoLOG) PER UNIT SC SCH ×3 (08:00→18:22)
[2019-03-17] MEDS: predniSONE 2.5 MG TAB PO SCH (08:04)
[2019-03-17] MEDS: PREGABALIN 75 MG CAP(LYRICA) PO SCH ×2 (08:04→21:16)
[2019-03-17] MEDS: VERAPAMIL 40 MG TAB PO SCH ×2 (08:04→21:15)
[2019-03-17] MEDS: VITAMIN D 1,000 INTERNATIONAL UNITS TABLET PO SCH (08:04)
[2019-03-17] MEDS: CETIRIZINE (ZyrTEC) 10 MG TAB PO SCH (08:04)
[2019-03-17] MEDS: FOLIC ACID 1 MG TAB PO SCH (08:04)
[2019-03-17] MEDS: PANTOPRAZOLE 40MG TAB (PROTONIX) PO SCH (08:04)
[2019-03-17] MEDS: ADVAIR HFA 230/21MCG INHALER INH SCH ×2 (08:39→20:35)
[2019-03-17] MEDS ORDERED: POTASSIUM CHLORIDE 10 MEQ SR TABLET PO ONE (09:00)
[2019-03-17 09:40] LABS: CPK CREATINE PHOSPHOKINASE 220 U/L (39-308)
[2019-03-17 10:36] LABS: HEPATITIS B SURFACE ANTIGEN NEGATIVE (NEGATIVE)
[2019-03-17] MEDS: ONDANSETRON 4MG/2ML VIAL (J2405) IV PRN ×2 (10:53→13:10)
[2019-03-17] MEDS: APIXABAN 5 MG TAB (ELIQUIS) PO SCH ×2 (10:54→21:13)
[2019-03-17 11:03] LABS: HEPATITIS B CORE ANTIBODY IGM NEGATIVE (NEGATIVE); HEPATITIS C VIRUS ABY INDEX 0.1 INDEX (<0.8)
[2019-03-17 11:06] LABS: HEPATITIS A ANTIBODY IGM NEGATIVE (NEGATIVE)
[2019-03-17] MEDS ORDERED: ONDANSETRON 4MG/2ML VIAL (J2405) IV ONE (13:15)
--- NOTE | 2019-03-17 13:22 | IPNPDOC ---
Date Seen The patient was seen on 03/17/19. Progress Note SUBJECTIVE: Patient appeared comfortable this morning with no apparent distress. However, appeared to have noticable discomfort in RLQ and RUQ on deep palpation. Noted by nursing staff that patient has been nauseous and had an episode of emesis this afternoon despite the Zofran. For HIDA scan today. OBJECTIVE PHYSICAL EXAMINATION: VITAL SIGNS: Please see below. General: No acute distress, Alert Eyes: Normal sclera, EOMI HENT: Atraumatic, neck supple Cardiovascular: Normal rate Pulmonary: Clear to auscultation b/l, no wheezing MSK: L. posterior back soreness/tenderness GI: Soft, generalized tenderness but more pronounced in RLQ and and b/l upper quadrants. Skin: Warm and dry Neuro: CN grossly intact. No focal deficits. Strengths equal b/l. Psych: oriented x 3 LABORATORY DATA, IMAGING STUDIES, MICROBIOLOGY: Please see below. DVT prophylaxis ordered?: On Eliquis ASSESSMENT AND PLAN: 1. Hyperbilirubinemia and Transaminitis - Hepatitis panel negative. Significant improvement in AST/ALT and bilirubin on repeat testing. - CT abdomen and abdominal US noted. Cholelithiasis with moderate GB thickening. No stone visualized in duct or CBD dilitation on US. - HIDA scan ordered to r/o cholecystitis. Low suspicion for also having appendicitis as pain is somewhat generalized as well, no evidence of appendicitis on CT. - Surgery consulted given worsening pain and nausea despite improving LFTs. 2. LILIA - likely 2/2 dehydration. - IVF support. 3. Fall - PT/OT 4. head injury - neurological assessment with no abnormalities. Does not appear to have any cognitive impairment at this time. - CT head negative for acute findings. 5. Lumbar spinal stenosis 6. Afib? - c/w Eliquis. Reportedly seen by Dr. Josue/Johnny 2 years prior for tachycardia. VS[facility] Vital Signs/I&O Vital Signs Date Time Temp Pulse Resp B/P (MAP) Pulse Ox O2 Delivery O2 Flow Rate FiO2 03/17/19 10:00 98.0 90 19 120/80 (93) 98 03/15/19 13:13 Room Air I&O- Last 24 Hours up to 6 AM 03/17/19 06:00 Intake Total 3391 ml Output Total 1100 ml Balance 2291 ml Laboratory Data 24H LABS Laboratory Tests 2 03/16/19 20:29: Bedside Glucose (Misc Panel) 163H 03/17/19 05:35: Nucleated Red Blood Cells % (auto) 0.0, Anion Gap 6L, Glomerular Filtration Rate > 60.0, Calcium Level 8.7L, Total Bilirubin 1.4#H, Direct Bilirubin 0.3H, Aspartate Amino Transf (AST/SGOT) 70H, Alanine Aminotransferase (ALT/SGPT) 154H, Alkaline Phosphatase 212H, Total Creatine Kinase 220, Total Protein 6.5, Albumin 3.0#L, Albumin/Globulin Ratio 0.86L 03/17/19 11:41: Bedside Glucose (Misc Panel) 131H 03/17/19 11:48: Urine Color YELLOW, Urine Appearance CLEAR, Urine pH 5.0, Urine Specific Picher 1.014, Urine Protein NEGATIVE, Urine Glucose (UA) 3+H, Urine Ketones NEGATIVE, Urine Blood 1+H, Urine Nitrite NEGATIVE, Urine Bilirubin NEGATIVE, Urine Urobilinogen 4.0H, Urine Leukocyte Esterase NEGATIVE, Urine WBC (Auto) 1, Urine RBC (Auto) 31H, Urine Hyaline Casts (Auto) 0, Urine Bacteria (Auto) NEGATIVE, Urine Squamous Epithelial Cells 0, Urine Mucus (Auto) SMALL, Urine Sperm (Auto) CBC/BMP Laboratory Tests 03/17/19 05:35 ANABEL LOYA MD Mar 17, 2019 13:22
[2019-03-17] MEDS ORDERED: METOPROLOL 5 MG/5 ML VIAL IV STA ×3 (15:13→16:23)
--- NOTE | 2019-03-17 16:20 | ECGEPIP ---
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
[2019-03-17] MEDS ORDERED: METOPROLOL TART 50 MG TAB PO ONE (18:00)
--- NOTE | 2019-03-17 18:17 | REPVR ---
PROCEDURE INFORMATION: Exam: CT Head Without Contrast Exam date and time: 03/17/2019 6:02 PM Clinical history: 79 years old, male; Altered mental status/memory loss TECHNIQUE: Imaging protocol: Computed tomography of the head without contrast. Radiation optimization: All CT scans at this facility use at least one of these dose optimization techniques: automated exposure control; mA and/or kV adjustment per patient size (includes targeted exams where dose is matched to clinical indication); or iterative reconstruction. COMPARISON: CT Head without contrast 03/15/2019 1:55 PM FINDINGS: Brain: 0.6 cm calcified extra-axial lesion over the right cerebral convexity likely reflects small meningioma. Nonspecific hypodensities of the periventricular and deep subcortical white matter, most likely secondary to chronic small vessel ischemic change. No intracranial hemorrhage or extra-axial fluid collection. No evidence of mass effect or midline shift. Arce-white matter differentiation is normal. Ventricles: Prominence of the ventricles and sulci, most likely attributed to parenchymal volume loss. Bones/joints: No acute osseus lesion or fracture. Sinuses: Unremarkable as visualized. Mastoid air cells: Unremarkable. Soft tissues: Unremarkable. IMPRESSION: 1. No acute intracranial pathology. 2. Other chronic findings, as above. Electronically signed by: Jl Garcia On 03/17/2019 18:17:19 PM
[2019-03-17] MEDS: LISINOPRIL 10 MG TAB PO SCH (21:00)
[2019-03-17] MEDS: BISOPROLOL FUMARATE 5 MG TAB PO SCH (21:14)
[2019-03-17] MEDS: ATORVASTATIN 20 MG TAB PO SCH (21:15)
[2019-03-17] MEDS: GABAPENTIN 300 MG CAP PO SCH (21:16)
[2019-03-17] MEDS: LEVEMIR (INSULIN DETEMIR) 1 UNITS/0.01ML SC SCH (21:18)
[2019-03-18] VITALS (7 sets, daily range): BP systolic 99–131; BP diastolic 59–78
[2019-03-18 06:11] LABS: HEMOGLOBIN 11.4 g/dl (13.5-17.5); MEAN CORPUSCULAR HEMOGLOBIN 29.5 pg (27.0-33.0); MEAN CORPUSCULAR HGB CONC 31.7 g/dl (32.0-36.5); MEAN CORPUSCULAR VOLUME 93.3 fl (80.0-96.0); PLATELET COUNT, AUTOMATED 214 10^3/uL (150-450); RED BLOOD COUNT 3.86 10^6/uL (4.30-6.10); WHITE BLOOD COUNT 15.8 10^3/uL (4.0-10.0)
[2019-03-18 06:42] LABS: BILIRUBIN,DIRECT 3.3 MG/DL (0.0-0.2); BILIRUBIN,TOTAL 5.8 MG/DL (0.2-1.0); CREATININE FOR GFR 1.26 MG/DL (0.70-1.30); GLOMERULAR FILTRATION RATE 58.5 (>35); POTASSIUM SERUM 4.1 MEQ/L (3.5-5.1); TOTAL PROTEIN 6.6 GM/DL (6.4-8.2)
[2019-03-18] MEDS: ADVAIR HFA 230/21MCG INHALER INH SCH ×2 (07:11→20:44)
[2019-03-18] MEDS: HumaLOG INSULIN (NovoLOG) PER UNIT SC SCH ×3 (07:30→17:30)
[2019-03-18] MEDS: predniSONE 2.5 MG TAB PO SCH ×2 (07:41→08:10)
[2019-03-18] MEDS: CETIRIZINE (ZyrTEC) 10 MG TAB PO SCH ×2 (07:42→08:10)
[2019-03-18] MEDS: VITAMIN D 1,000 INTERNATIONAL UNITS TABLET PO SCH ×2 (07:42→08:10)
[2019-03-18] MEDS: FOLIC ACID 1 MG TAB PO SCH ×2 (07:42→08:09)
[2019-03-18] MEDS: PREGABALIN 75 MG CAP(LYRICA) PO SCH ×3 (07:42→20:51)
[2019-03-18] MEDS: PANTOPRAZOLE 40MG TAB (PROTONIX) PO SCH ×2 (07:42→08:10)
[2019-03-18] MEDS: BISOPROLOL FUMARATE 5 MG TAB PO SCH ×2 (08:10→20:50)
--- NOTE | 2019-03-18 09:31 | REP ---
HEPATOBILIARY SCAN: HISTORY: Assess bile ducts. Cholecystitis. Comparison CT study March 15, 2019. Comparison sonography March 15, 2019. TECHNIQUE: 6.5 mCi of technetium 99m mebrofenin is injected and sequential anterior abdominal images are acquired. 5-minute images are acquired for the initial 60 minutes and a 3.5 hour post injection imaging sequence was acquired. SCINTIGRAPHIC FINDINGS: The initial hepatocellular parenchymal uptake phase shows homogeneous uptake. This homogeneous hepatocellular uptake phase persists throughout the initial 1 hour of imaging. There is increased extrahepatic soft tissue background activity as well. Neither the gallbladder, the intrahepatic bile ducts, or the small intestine is labeled during the initial hour. This pattern is consistent with complete extrahepatic biliary duct obstruction although the increased extrahepatic background uptake suggests cholestasis as well. At 3-1/2 hours, this pattern persists. No bile duct, small intestine, or gallbladder visualization is visible. IMPRESSION: Nonvisualization of the gallbladder through 3-1/2 hours. The extrahepatic bile ducts and the small intestine are not labeled either. The pattern suggests complete extrahepatic bile duct obstruction versus cholestasis and hepatocellular dysfunction. Electronically Signed by Eulogio Melchor MD 03/18/2019 06:19 P
--- NOTE | 2019-03-18 10:17 | CR ---
DATE OF CONSULTATION: 03/17/2019 HISTORY OF PRESENT ILLNESS: The patient was admitted after having a fall and was admitted for further observation. During his evaluation, he was found to have some abnormal liver function tests and essentially initial liver function tests show bilirubin, AST, ALT all significantly elevated. Over the last few days his LFTs have decreased however, today he was having increasing pain and an ultrasound etc. was performed to evaluate for possible cholecystitis or other abnormality. The patient had a CT scan that showed no significant inflammatory changes around the liver gallbladder area and had a gallbladder ultrasound that showed some mild thickening. A HIDA scan was performed and I looked at the images and I did not see a very good feeling of the liver itself suggesting that there is cholestasis and hepatocellular dysfunction. However, at this point the patient presents for additional recommendations concerning this. PAST MEDICAL HISTORY: The patient's past medical history is significant for: History of rheumatoid arthritis. Multiple back surgeries. Hypertension. Asthma. Diabetes mellitus. Arthritis. Neck surgery. MEDICATIONS: Include: - Eliquis - atorvastatin - calcium - Invokana - cetirizine - vitamin D - Trulicity - Advair - folic acid - gabapentin - Levemir - probiotic - lisinopril - metformin - methotrexate - pantoprazole - prednisone - pregabalin - ranitidine - verapamil - eye drops Also has some p.r.n. albuterol and other respiratory as well as arthritis medications. PHYSICAL EXAMINATION: Reveals a elderly male who looks stated age. HEENT is unremarkable. Lungs are clear anteriorly. Heart is regular but slightly tachycardic at this time. Abdomen is distended, tympanitic, but really no guarding, no rebound. No peritoneal signs are appreciated. IMPRESSION/PLAN: The patient has normal white count of 5.8 today and no significant filling of the liver area suggesting much more of a primary hepatocellular dysfunction in general, thus at this point, my recommendation is that we see how he does overnight, possibly decrease his diet to a clear liquid diet given his abdominal distention, start him on some simethicone and see how his LFT labs change in morning. I anticipate given its improvement over the last couple days from the lab standpoint, it is probably less related to his gallbladder and I wonder if this is secondary to hepatic congestion. In any case, will need to see what his followup labs, etc. are in the morning prior to making any further determination.
[2019-03-18] MEDS: VERAPAMIL 40 MG TAB PO SCH ×2 (12:15→20:48)
--- NOTE | 2019-03-18 13:29 | REP ---
MRCP examination: Without contrast. History: Evaluate bile duct for obstruction. Technique: Axial and coronal T2-weighted scans were obtained. In addition an MRCP acquisition is acquired and maximal intensity projection images are generated. MRCP findings: No hepatic mass lesion is seen. There is no evidence of intrahepatic or extrahepatic biliary tract dilation. The main pancreatic duct is normal in caliber. The common bile duct measures 6 mm in greatest diameter. There is however a rounded filling defect in the common bile duct consistent with a choledocholith. The filling defect measures 5 mm in size. There is a rounded defect in the distal CBD at the ampulla which may be a second stone. There is one similar sized filling defect in the gallbladder on T2-weighted scans. T2-weighted scans suggests mild pericholecystic fluid. Impression: Findings consistent with choledocholithiasis with two rounded filling defects 5 mm in diameter in the non-dilated CBD. The gallbladder shows pericholecystic fluid. There is one similar sized filling defect in the gallbladder consistent with gallstones. The gallbladder appears somewhat larger than it did at the time of the CT and ultrasound from March 15, 2019. Electronically Signed by Eulogio Melchor MD 03/18/2019 06:25 P
[2019-03-18] MEDS: PIPERACILLIN/TAZOBACTAM SOD 3.375 GM in D5W MINI-BAG PLUS 50 ML IV SCH ×2 (13:45→18:21)
[2019-03-18] MEDS: IBUPROFEN 600 MG TAB PO PRN (13:46)
--- NOTE | 2019-03-18 19:07 | IPNPDOC ---
Date Seen The patient was seen on 03/18/19. Progress Note SUBJECTIVE: Patient clinically appeared better today. However, bilirubin and liver functions all have significant increased today. Reports improvement in abdominal pain and only complain of tenderness with deep palpation. Also reports an episode of bloody bowel movement today. OBJECTIVE PHYSICAL EXAMINATION: VITAL SIGNS: Please see below. General: No acute distress, Alert Eyes: Normal sclera, EOMI HENT: Atraumatic, neck supple Cardiovascular: Normal rate Pulmonary: Clear to auscultation b/l, no wheezing MSK: L. posterior back soreness/tenderness GI: Soft, mild generalized tenderness. Skin: Warm and dry Neuro: CN grossly intact. No focal deficits. Strengths equal b/l. Psych: oriented x 3 LABORATORY DATA, IMAGING STUDIES, MICROBIOLOGY: Please see below. DVT prophylaxis ordered?: Eliquis on hold. SCDs ASSESSMENT AND PLAN: 1. Hyperbilirubinemia and Transaminitis - Hepatitis panel negative. Significant improvement in AST/ALT and bilirubin on repeat testing. - CT abdomen and abdominal US noted. Cholelithiasis with moderate GB thickening. No stone visualized in duct or CBD dilitation on US. - HIDA with evidence of obstruction of extrahepatic duct. MRCP showed evidence of filling defects in the non-dilated CBD. - Plan for ERCP tomorrow with GI. Anticoagulation held. 2. LILIA - likely 2/2 dehydration. - IVF support. 3. Fall - PT/OT 4. head injury - neurological assessment with no abnormalities. Does not appear to have any cognitive impairment at this time. - CT head negative for acute findings. 5. Lumbar spinal stenosis 6. Afib - Eliquis held for ERCP. - Normally on Verapamil at home. Bisoprolol added due to uncontrolled Afib w/ RVR, can likely d/c once patient more stable. 7. Bleeding per rectum - No evidence of external hemorrhoid noted on exam. - GI following. VS, I&O, 24H, Fishbone Vital Signs/I&O Vital Signs Date Time Temp Pulse Resp B/P (MAP) Pulse Ox O2 Delivery O2 Flow Rate FiO2 03/18/19 16:00 97.4 96 18 100/74 (83) 96 Room Air 03/17/19 16:22 2.0 I&O- Last 24 Hours up to 6 AM 03/18/19 06:00 Intake Total 1300 ml Output Total 350 ml Balance 950 ml Laboratory Data 24H LABS Laboratory Tests 2 03/17/19 20:59: Bedside Glucose (Misc Panel) 216H 03/18/19 05:48: Nucleated Red Blood Cells % (auto) 0.0, Anion Gap 2L, Glomerular Filtration Rate 58.5, Calcium Level 9.0, Total Bilirubin 5.8#H, Direct Bilirubin 3.3H, Aspartate Amino Transf (AST/SGOT) 626H, Alanine Aminotransferase (ALT/SGPT) 823H, Alkaline Phosphatase 514H, Total Protein 6.6, Albumin 3.0L, Albumin/Globulin Ratio 0.83L 03/18/19 08:05: Lactic Acid Level 1.5 03/18/19 12:14: Bedside Glucose (Misc Panel) 136H 03/18/19 16:54: Bedside Glucose (Misc Panel) 184H CBC/BMP Laboratory Tests 03/18/19 05:48 Microbiology Microbiology 03/18/19 Blood Culture, Received Pending 03/18/19 Blood Culture, Received Pending ANABEL LOYA MD Mar 18, 2019 19:07
[2019-03-18] MEDS: LEVEMIR (INSULIN DETEMIR) 1 UNITS/0.01ML SC SCH (20:47)
[2019-03-18] MEDS: ATORVASTATIN 20 MG TAB PO SCH (20:48)
[2019-03-18] MEDS: GABAPENTIN 300 MG CAP PO SCH (20:51)
[2019-03-19] VITALS: BP 127/67
[2019-03-19] MEDS: PIPERACILLIN/TAZOBACTAM SOD 3.375 GM in D5W MINI-BAG PLUS 50 ML IV SCH ×4 (01:15→18:59)
[2019-03-19 04:00] VITALS: BP 130/83
[2019-03-19 06:11] LABS: HEMATOCRIT 35.6 % (42.0-52.0); HEMOGLOBIN 11.3 g/dl (13.5-17.5); MEAN CORPUSCULAR HEMOGLOBIN 30.1 pg (27.0-33.0); MEAN CORPUSCULAR HGB CONC 31.7 g/dl (32.0-36.5); MEAN CORPUSCULAR VOLUME 94.9 fl (80.0-96.0); PLATELET COUNT, AUTOMATED 224 10^3/uL (150-450); RED BLOOD COUNT 3.75 10^6/uL (4.30-6.10); WHITE BLOOD COUNT 14.3 10^3/uL (4.0-10.0)
[2019-03-19 06:32] LABS: BILIRUBIN,DIRECT 1.6 MG/DL (0.0-0.2); BILIRUBIN,TOTAL 3.3 MG/DL (0.2-1.0); CALCIUM LEVEL 8.9 MG/DL (8.8-10.2); CREATININE FOR GFR 1.53 MG/DL (0.70-1.30); GLOMERULAR FILTRATION RATE 46.7 (>35); POTASSIUM SERUM 3.8 MEQ/L (3.5-5.1); TOTAL PROTEIN 7.1 GM/DL (6.4-8.2)
[2019-03-19] MEDS: HumaLOG INSULIN (NovoLOG) PER UNIT SC SCH ×3 (07:30→17:30)
[2019-03-19] MEDS: ADVAIR HFA 230/21MCG INHALER INH SCH ×2 (07:45→20:30)
[2019-03-19 08:00] VITALS: BP 126/78
[2019-03-19] MEDS: NS 1,000 ML IV SCH ×2 (08:51→18:42)
[2019-03-19] MEDS: PANTOPRAZOLE 40MG TAB (PROTONIX) PO SCH (08:52)
[2019-03-19] MEDS: CETIRIZINE (ZyrTEC) 10 MG TAB PO SCH (08:52)
[2019-03-19] MEDS: FOLIC ACID 1 MG TAB PO SCH (08:53)
[2019-03-19] MEDS: predniSONE 2.5 MG TAB PO SCH (08:53)
[2019-03-19] MEDS: PREGABALIN 75 MG CAP(LYRICA) PO SCH ×2 (08:53→22:13)
[2019-03-19] MEDS: VITAMIN D 1,000 INTERNATIONAL UNITS TABLET PO SCH (08:53)
[2019-03-19] MEDS: BISOPROLOL FUMARATE 5 MG TAB PO SCH ×2 (08:54→22:12)
[2019-03-19] MEDS: VERAPAMIL 40 MG TAB PO SCH ×2 (08:54→22:12)
[2019-03-19 12:00] VITALS: BP 131/66
--- NOTE | 2019-03-19 12:46 | IPNPDOC ---
Date Seen The patient was seen on 03/19/19. Progress Note SUBJECTIVE: Patient clinically appeared better today. However, bilirubin and liver functions all have significant increased today. Reports improvement in abdominal pain and only complain of tenderness with deep palpation. Also reports an episode of bloody bowel movement today. OBJECTIVE PHYSICAL EXAMINATION: VITAL SIGNS: Please see below. General: No acute distress, Alert Eyes: Normal sclera, EOMI HENT: Atraumatic, neck supple Cardiovascular: Normal rate Pulmonary: Clear to auscultation b/l, no wheezing MSK: L. posterior back soreness/tenderness GI: Soft, mild generalized tenderness. Skin: Warm and dry Neuro: CN grossly intact. No focal deficits. Strengths equal b/l. Psych: oriented x 3 LABORATORY DATA, IMAGING STUDIES, MICROBIOLOGY: Please see below. DVT prophylaxis ordered?: Eliquis on hold. SCDs ASSESSMENT AND PLAN: 1. Hyperbilirubinemia and Transaminitis - Hepatitis panel negative. Significant improvement in AST/ALT and bilirubin on repeat testing. - CT abdomen and abdominal US noted. Cholelithiasis with moderate GB thickening. No stone visualized in duct or CBD dilitation on US. - HIDA with evidence of obstruction of extrahepatic duct. MRCP showed evidence of filling defects in the non-dilated CBD. - Plan for ERCP with GI. Anticoagulation held. 2. LILIA - likely 2/2 dehydration. - IVF support. 3. Fall - PT/OT 4. Acute Hepatic encephalopathy - CT head negative for acute findings x 2. - Total bilirubin elevated up to 5.8 during course of hospitalization, trending down. 5. Lumbar spinal stenosis 6. Afib w/ RVR - Resolved. Discussed with Dr. Turner, appreciated assistance. - Eliquis held for ERCP and due to GI bleeding. - Normally on Verapamil at home. Bisoprolol added due to uncontrolled Afib w/ RVR, can likely d/c once patient more stable. 7. Bleeding per rectum - No evidence of external hemorrhoid noted on exam. - Eliquis held. GI following. VS, I&O, 24H, Fishbone Vital Signs/I&O Vital Signs Date Time Temp Pulse Resp B/P (MAP) Pulse Ox O2 Delivery O2 Flow Rate FiO2 03/19/19 08:54 88 140/81 03/19/19 08:00 99.1 16 95 Room Air 03/17/19 16:22 2.0 I&O- Last 24 Hours up to 6 AM 03/19/19 06:00 Intake Total 1781 ml Output Total 350 ml Balance 1431 ml Laboratory Data 24H LABS Laboratory Tests 2 03/18/19 16:54: Bedside Glucose (Misc Panel) 184H 03/18/19 20:24: Bedside Glucose (Misc Panel) 174H 03/19/19 05:49: Nucleated Red Blood Cells % (auto) 0.0, Anion Gap 7L, Glomerular Filtration Rate 46.7, Calcium Level 8.9, Total Bilirubin 3.3H, Direct Bilirubin 1.6H, Aspartate Amino Transf (AST/SGOT) 296H, Alanine Aminotransferase (ALT/SGPT) 568H, Alkaline Phosphatase 517H, Total Protein 7.1, Albumin 3.0L, Albumin/Globulin Ratio 0.73L 03/19/19 12:27: Bedside Glucose (Misc Panel) 145H CBC/BMP Laboratory Tests 03/19/19 05:49 Microbiology Microbiology 03/18/19 Blood Culture - Preliminary, Resulted No growth after 24 hours . All specim... 03/18/19 Blood Culture - Preliminary, Resulted No growth after 24 hours . All specim... ANABEL LOYA MD Mar 19, 2019 12:46
[2019-03-19] MEDS ORDERED: TRIAMCINOLONE ACETONIDE SUSP 40 MG/ML VIAL (J3301) As Ordered ONE (16:07)
[2019-03-19] MEDS ORDERED: PROPOFOL 200 MG/20 ML VIAL As Ordered ONE (16:08)
[2019-03-19] MEDS ORDERED: ONDANSETRON 4MG/2ML VIAL (J2405) As Ordered ONE (16:08)
[2019-03-19] MEDS ORDERED: fentaNYL 100 MCG/2 ML INJECTION (J3010) As Ordered ONE (16:08)
[2019-03-19] MEDS ORDERED: ROCURONIUM BROMIDE 50 MG/5 ML VIAL As Ordered ONE (16:08)
[2019-03-19] MEDS ORDERED: ISOVUE-300 61% 50ML VIAL (Q9967) As Ordered ONE (16:08)
[2019-03-19] MEDS ORDERED: LIDOCAINE 2% INJ 100 MG/5 ML SDV (FOR ANES.) As Ordered ONE (16:08)
[2019-03-19] MEDS ORDERED: dexameTHASONE 4 MG/ML 1ML VIAL (J1100) As Ordered ONE (16:08)
[2019-03-19] MEDS ORDERED: SUGAMMADEX SODIUM 500 MG/5 ML VIAL (BRIDION) As Ordered ONE (17:39)
[2019-03-19] MEDS ORDERED: METOCLOPRAMIDE INJ 10MG/2ML VIAL (J2765) IV PRN (17:45)
[2019-03-19] MEDS ORDERED: ONDANSETRON 4MG/2ML VIAL (J2405) IV PRN (17:45)
[2019-03-19] MEDS ORDERED: PERCOCET 5MG/325MG TAB PO PRN (17:45)
[2019-03-19] MEDS ORDERED: LR 1,000 ML IV SCH (17:45)
[2019-03-19] MEDS ORDERED: fentaNYL 100 MCG/2 ML INJECTION (J3010) IV PRN (17:45)
--- NOTE | 2019-03-19 17:54 | ROOR ---
Patient Name: Ivan Pastor Procedure Date: 03/19/2019 8:29 AM Date of : 1940 Age: 79 Room: Main OR Gender: Male Note Status: Finalized Procedure: ERCP + Papillotomy + Balloon Sweep Indications: Abdominal pain of suspected biliary origin, Abnormal abdominal MRI, Bile duct stone on magnetic resonance cholangiopancreatography, Evaluation and possible treatment of bile duct stone(s), Elevated liver enzymes Providers: Isacc Ruiz MD Referring MD: 2. Inpatient 2. Inpatient, Xiao Crane NP Requesting Provider: Medicines: General Anesthesia Complications: No immediate complications. Procedure: Pre-Anesthesia Assessment: - The heart rate, respiratory rate, oxygen saturations, blood pressure, adequacy of pulmonary ventilation, and response to care were monitored throughout the procedure. The Duodenoscope was introduced through the mouth, and advanced to the duodenum and used to inject contrast into the bile duct. The ERCP was accomplished without difficulty. The patient tolerated the procedure well. Findings: The bile duct was deeply cannulated with the short-nosed traction sphincterotome. Contrast was injected. I personally interpreted the bile duct images. Ductal flow of contrast was adequate. Image quality was adequate. Contrast extended to the entire biliary tree. Opacification of the common bile duct was done. The common bile duct contained one stone. A short 0.035 inch Soft Jagwire was passed into the biliary tree. Biliary sphincterotomy was made with a monofilament traction (standard) sphincterotome using ERBE electrocautery. There was no post-sphincterotomy bleeding. The biliary tree was swept with a 12 mm balloon starting at the bifurcation. Sludge was swept from the duct. All stones were removed. Impression: - Choledocholithiasis was found. Complete removal was accomplished by biliary sphincterotomy and balloon extraction. - A biliary sphincterotomy was performed. - The biliary tree was swept. - The examination was otherwise normal. Recommendation: - [facility]. - Continue present medications. - Watch for pancreatitis, bleeding, perforation, and cholangitis. - The findings and recommendations were discussed with the patient's family. Isacc Ruiz MD Isacc Ruiz MD 03/19/2019 5:53:53 PM Electronically signed by Isacc Ruiz MD Number of Addenda: 0 Note Initiated On: 03/19/2019 8:29 AM Estimated Blood Loss: Estimated blood loss: none.
--- NOTE | 2019-03-19 18:09 | REP ---
ERCP: 22 views. History: Intraoperative imaging. 2 minutes 42 seconds of fluoroscopy time is reported. Findings: A sequence of 22 last image hold fluoroscopically obtained spot radiographs of the right upper quadrant taken during ERCP document cannulation and contrast injection of the common bile duct. Electronically Signed by Eulogio Melchor MD 03/19/2019 07:51 P
[2019-03-19 20:00] VITALS: BP 141/83
[2019-03-19] MEDS: ATORVASTATIN 20 MG TAB PO SCH (22:12)
[2019-03-19] MEDS: GABAPENTIN 300 MG CAP PO SCH (22:13)
[2019-03-19] MEDS: LEVEMIR (INSULIN DETEMIR) 1 UNITS/0.01ML SC SCH (22:13)
[2019-03-20] VITALS: BP 118/66
[2019-03-20] MEDS: NS 1,000 ML IV SCH (00:02)
[2019-03-20] MEDS: PIPERACILLIN/TAZOBACTAM SOD 3.375 GM in D5W MINI-BAG PLUS 50 ML IV SCH ×4 (00:03→17:55)
[2019-03-20 04:00] VITALS: BP 143/80
[2019-03-20 05:59] LABS: HEMATOCRIT 33.5 % (42.0-52.0); HEMOGLOBIN 10.8 g/dl (13.5-17.5); MEAN CORPUSCULAR HEMOGLOBIN 30.8 pg (27.0-33.0); MEAN CORPUSCULAR HGB CONC 32.2 g/dl (32.0-36.5); MEAN CORPUSCULAR VOLUME 95.4 fl (80.0-96.0); PLATELET COUNT, AUTOMATED 243 10^3/uL (150-450); RED BLOOD COUNT 3.51 10^6/uL (4.30-6.10); WHITE BLOOD COUNT 10.8 10^3/uL (4.0-10.0)
[2019-03-20 06:32] LABS: ALBUMIN 2.7 GM/DL (3.2-5.2); BILIRUBIN,TOTAL 2.6 MG/DL (0.2-1.0); CALCIUM LEVEL 8.2 MG/DL (8.8-10.2); CREATININE FOR GFR 1.29 MG/DL (0.70-1.30); GLOMERULAR FILTRATION RATE 56.9 (>35); POTASSIUM SERUM 4.2 MEQ/L (3.5-5.1); TOTAL PROTEIN 6.7 GM/DL (6.4-8.2)
[2019-03-20] MEDS: ADVAIR HFA 230/21MCG INHALER INH SCH ×2 (07:32→19:34)
[2019-03-20 08:00] VITALS: BP 148/84
[2019-03-20] MEDS: CETIRIZINE (ZyrTEC) 10 MG TAB PO SCH (09:22)
[2019-03-20] MEDS: FOLIC ACID 1 MG TAB PO SCH (09:22)
[2019-03-20] MEDS: predniSONE 2.5 MG TAB PO SCH (09:22)
[2019-03-20] MEDS: BISOPROLOL FUMARATE 5 MG TAB PO SCH (09:22)
[2019-03-20] MEDS: PREGABALIN 75 MG CAP(LYRICA) PO SCH ×2 (09:22→21:48)
[2019-03-20] MEDS: VITAMIN D 1,000 INTERNATIONAL UNITS TABLET PO SCH (09:22)
[2019-03-20] MEDS: PANTOPRAZOLE 40MG TAB (PROTONIX) PO SCH (09:22)
[2019-03-20] MEDS: VERAPAMIL 40 MG TAB PO SCH ×2 (09:24→21:48)
[2019-03-20] MEDS: HumaLOG INSULIN (NovoLOG) PER UNIT SC SCH ×3 (09:25→17:52)
[2019-03-20 12:00] VITALS: BP 163/76
[2019-03-20] MEDS ORDERED: SLF 3 ML SYR IV PRN (12:00)
--- NOTE | 2019-03-20 12:40 | IPN ---
DATE: 03/20/2019 HISTORY: The patient was admitted on the 15 of March with a history of a fall with possible loss of consciousness at home. On presentation he was found to have elevation of his liver function tests and his workup revealed cholelithiasis and choledocholithiasis. Yesterday he underwent an ERCP by Dr. Ruiz with removal of common bile duct stones. The patient this morning is sitting up in a chair looking quite comfortable interacting with family. Vital signs: Show that he has been afebrile over the past 24 hours. His pulse is in the 70s to low 80s. His blood pressure is good and his room air oxygen saturation is normal. Intake and output show that yesterday he had 1200 mL in with 250 mL recorded out with two bowel movements and several voids. PHYSICAL EXAMINATION: The patient is an obese older man sitting up in a chair looking comfortable. He is alert and globally oriented. He has good skin turgor and the skin is warm and dry. He has anicteric sclerae. Heart exam reveals a regular rhythm. The abdomen is obese and he has active bowel sounds. The abdomen is soft throughout without significant tenderness. Laboratory studies show a white count of 11, hemoglobin 11, hematocrit 34 and a platelet count of 243,000. Chemistry profile shows normal electrolytes with a BUN of 24, creatinine 1.3 and a glucose of 214. His total bilirubin today is 2.6 with AST of 171, ALT of 421 and alk phos of 529. These are all somewhat decreased from yesterday's levels. IMPRESSION The patient is doing well following his ERCP with papillotomy and removal of common bile duct stones. He does have at least one other stone identified within the gallbladder. RECOMMENDATIONS: At this point the patient should be monitored for resolution of his elevated liver function tests. His diet can be advanced as tolerated. When his medical condition allows it would be reasonable for him to undergo cholecystectomy to prevent future problems with his remaining cholelithiasis. Dr. Berman will be back on Friday the and can address the possibility of surgery with the patient at that time. SHERRIE
[2019-03-20] MEDS: SLF 3 ML SYR IV SCH ×2 (14:00→21:48)
--- NOTE | 2019-03-20 14:42 | IPNPDOC ---
Date Seen The patient was seen on 03/20/19. Progress Note SUBJECTIVE: Patient s/p ERCP with stone removal yesterday. Liver profile improving, patient reports feeling better. No other episode of GI bleeding noted, FOBT+ x1. Noted to have 2 brief pauses overnight with HR down to 40s at one point while sleeping. OBJECTIVE PHYSICAL EXAMINATION: VITAL SIGNS: Please see below. General: No acute distress, Alert Eyes: Normal sclera, EOMI HENT: Atraumatic, neck supple Cardiovascular: Normal rate Pulmonary: Clear to auscultation b/l, no wheezing MSK: L. posterior back soreness/tenderness GI: Soft, mild generalized tenderness. Skin: Warm and dry Neuro: CN grossly intact. No focal deficits. Strengths equal b/l. Psych: oriented x 3 LABORATORY DATA, IMAGING STUDIES, MICROBIOLOGY: Please see below. DVT prophylaxis ordered?: Eliquis on hold. SCDs ASSESSMENT AND PLAN: 1. Choledocholithiasis - s/p ERCP for stone removal by GI. Hyperbilirubinemia and Transaminitis improving. - Hepatitis panel negative. - Cholithiasis noted on abdominal US. F/u w/ surgery regarding timing of cholecystectomy. 2. LILIA - likely 2/2 dehydration. Improving. - IVF support. 3. Fall - PT/OT 4. Acute Hepatic encephalopathy - CT head negative for acute findings x 2. - Total bilirubin elevated up to 5.8 during course of hospitalization, trending down. 5. Lumbar spinal stenosis 6. Afib w/ RVR - Resolved. Discussed with Dr. Turner, appreciated assistance. - Eliquis on hold in setting of recent GI bleed. - Normally on Verapamil at home, Bisoprolol 5mg BID added for the last few days. HR had been controlled with episode of bradycardia and pause at night. - D/c BB at this time. Monitor HR. 7. Bleeding per rectum - No evidence of external hemorrhoid noted on exam. - Eliquis held. GI following. - FOBT negative x1. Repeat. DVT ppx: SCD. Code status: Full code VS, I&O, 24H, Fishbone Vital Signs/I&O Vital Signs Date Time Temp Pulse Resp B/P (MAP) Pulse Ox O2 Delivery O2 Flow Rate FiO2 03/20/19 12:00 97.3 65 18 163/76 (105) 100 Room Air 03/17/19 16:22 2.0 I&O- Last 24 Hours up to 6 AM 03/20/19 06:00 Intake Total 1140 ml Output Total 250 ml Balance 890 ml Laboratory Data 24H LABS Laboratory Tests 2 03/19/19 18:27: Bedside Glucose (Misc Panel) 138H 03/19/19 22:01: Bedside Glucose (Misc Panel) 271H 03/20/19 05:24: Nucleated Red Blood Cells % (auto) 0.0, Anion Gap 7L, Glomerular Filtration Rate 56.9, Calcium Level 8.2L, Total Bilirubin 2.6H, Aspartate Amino Transf (AST/SGOT) 171H, Alanine Aminotransferase (ALT/SGPT) 421H, Alkaline Phosphatase 529H, Total Protein 6.7, Albumin 2.7L, Albumin/Globulin Ratio 0.68L 03/20/19 11:33: Bedside Glucose (Misc Panel) 140H CBC/BMP Laboratory Tests 03/20/19 05:24 Microbiology Microbiology 03/19/19 Stool Occult Blood (SABINE) - Final, Complete 03/18/19 Blood Culture - Preliminary, Resulted No Growth after 48 hours. All Specime... 03/18/19 Blood Culture - Preliminary, Resulted No Growth after 48 hours. All Specime... ANABEL LOYA MD Mar 20, 2019 14:42
[2019-03-20 16:00] VITALS: BP 138/87
[2019-03-20 20:00] VITALS: BP 121/68
[2019-03-20] MEDS: LEVEMIR (INSULIN DETEMIR) 1 UNITS/0.01ML SC SCH (21:47)
[2019-03-20] MEDS: GABAPENTIN 300 MG CAP PO SCH (21:48)
[2019-03-20] MEDS: ATORVASTATIN 20 MG TAB PO SCH (21:48)
[2019-03-21] VITALS: BP 110/64
[2019-03-21] MEDS: PIPERACILLIN/TAZOBACTAM SOD 3.375 GM in D5W MINI-BAG PLUS 50 ML IV SCH ×4 (00:19→18:08)
[2019-03-21 04:00] VITALS: BP 147/69
[2019-03-21] MEDS: SLF 3 ML SYR IV SCH ×3 (04:35→20:53)
[2019-03-21 05:29] LABS: HEMATOCRIT 32.9 % (42.0-52.0); HEMOGLOBIN 10.5 g/dl (13.5-17.5); MEAN CORPUSCULAR HEMOGLOBIN 30.3 pg (27.0-33.0); MEAN CORPUSCULAR HGB CONC 31.9 g/dl (32.0-36.5); MEAN CORPUSCULAR VOLUME 94.8 fl (80.0-96.0); PLATELET COUNT, AUTOMATED 275 10^3/uL (150-450); RED BLOOD COUNT 3.47 10^6/uL (4.30-6.10); WHITE BLOOD COUNT 10.4 10^3/uL (4.0-10.0)
[2019-03-21 05:47] LABS: ALBUMIN 2.7 GM/DL (3.2-5.2); ALT/SGPT 306 U/L (12-78); BILIRUBIN,TOTAL 1.2 MG/DL (0.2-1.0); BLOOD UREA NITROGEN 22 MG/DL (7-18); CALCIUM LEVEL 8.4 MG/DL (8.8-10.2); CARBON DIOXIDE LEVEL 26 MEQ/L (21-32); CHLORIDE LEVEL 108 MEQ/L (98-107); CREATININE FOR GFR 1.19 MG/DL (0.70-1.30); GLOMERULAR FILTRATION RATE > 60.0 (>35); GLUCOSE, FASTING 182 MG/DL (70-100); POTASSIUM SERUM 3.7 MEQ/L (3.5-5.1); SODIUM LEVEL 140 MEQ/L (136-145); TOTAL PROTEIN 6.5 GM/DL (6.4-8.2)
[2019-03-21] MEDS: ADVAIR HFA 230/21MCG INHALER INH SCH ×2 (07:29→19:58)
[2019-03-21 08:00] VITALS: BP 143/85
[2019-03-21] MEDS: predniSONE 2.5 MG TAB PO SCH (08:23)
[2019-03-21] MEDS: FOLIC ACID 1 MG TAB PO SCH (08:23)
[2019-03-21] MEDS: VITAMIN D 1,000 INTERNATIONAL UNITS TABLET PO SCH (08:23)
[2019-03-21] MEDS: PREGABALIN 75 MG CAP(LYRICA) PO SCH ×2 (08:23→20:53)
[2019-03-21] MEDS: PANTOPRAZOLE 40MG TAB (PROTONIX) PO SCH (08:23)
[2019-03-21] MEDS: CETIRIZINE (ZyrTEC) 10 MG TAB PO SCH (08:23)
[2019-03-21] MEDS: traMADol 50 MG TAB PO PRN ×2 (08:24→21:21)
[2019-03-21] MEDS: VERAPAMIL 40 MG TAB PO SCH ×2 (08:24→20:51)
[2019-03-21] MEDS: HumaLOG INSULIN (NovoLOG) PER UNIT SC SCH ×3 (08:25→18:07)
[2019-03-21 12:00] VITALS: BP 147/70
--- NOTE | 2019-03-21 12:43 | IPNPDOC ---
Date Seen The patient was seen on 03/21/19. Progress Note SUBJECTIVE: Patient feels well with mild abdominal pain intermittently. Liver profile continues to improve. No other episode of GI bleeding noted. HR also noted to have brief period into 40s overnight and pauses. OBJECTIVE PHYSICAL EXAMINATION: VITAL SIGNS: Please see below. General: No acute distress, Alert Eyes: Normal sclera, EOMI HENT: Atraumatic, neck supple Cardiovascular: Normal rate Pulmonary: Clear to auscultation b/l, no wheezing MSK: L. posterior back soreness/tenderness GI: Soft, mild generalized tenderness. Skin: Warm and dry Neuro: CN grossly intact. No focal deficits. Strengths equal b/l. Psych: oriented x 3 LABORATORY DATA, IMAGING STUDIES, MICROBIOLOGY: Please see below. DVT prophylaxis ordered?: Eliquis on hold. SCDs ASSESSMENT AND PLAN: 1. Choledocholithiasis - s/p ERCP for stone removal by GI. Hyperbilirubinemia and Transaminitis improving. - Hepatitis panel negative. - Cholithiasis noted on abdominal US. F/u w/ surgery regarding timing of cholecystectomy. 2. LILIA - likely 2/2 dehydration. Improving. - IVF support. 3. Fall - PT/OT 4. Acute Hepatic encephalopathy - CT head negative for acute findings x 2. - Total bilirubin elevated up to 5.8 during course of hospitalization, trending down. 5. Lumbar spinal stenosis 6. Afib w/ RVR - Resolved. Discussed with Dr. Turner, appreciated assistance. - Eliquis on hold in setting of recent GI bleed. - Normally on Verapamil at home, Bisoprolol 5mg BID added but now d/c due to nighttime bradycardia and pauses. - D/c BB at this time. Monitor HR. 7. Bleeding per rectum - No evidence of external hemorrhoid noted on exam. - Eliquis held. GI following. - FOBT negative x1. Repeat. DVT ppx: SCD. Code status: Full code VS, I&O, 24H, Fishbone Vital Signs/I&O Vital Signs Date Time Temp Pulse Resp B/P (MAP) Pulse Ox O2 Delivery O2 Flow Rate FiO2 03/21/19 12:00 97.6 80 18 147/70 (95) 96 Room Air 03/17/19 16:22 2.0 I&O- Last 24 Hours up to 6 AM 03/21/19 06:00 Intake Total 1474 ml Output Total 1150 ml Balance 324 ml Laboratory Data 24H LABS Laboratory Tests 2 03/20/19 16:32: Bedside Glucose (Misc Panel) 204H 03/20/19 20:03: Bedside Glucose (Misc Panel) 226H 03/21/19 05:02: Nucleated Red Blood Cells % (auto) 0.0, Anion Gap 6L, Glomerular Filtration Rate > 60.0, Calcium Level 8.4L, Total Bilirubin 1.2#H, Aspartate Amino Transf (AST/SGOT) 78H, Alanine Aminotransferase (ALT/SGPT) 306H, Alkaline Phosphatase 445H, Total Protein 6.5, Albumin 2.7L, Albumin/Globulin Ratio 0.71L 03/21/19 11:38: Bedside Glucose (Misc Panel) 249H CBC/BMP Laboratory Tests 03/21/19 05:02 Microbiology Microbiology 03/19/19 Stool Occult Blood (SABINE) - Final, Complete 03/18/19 Blood Culture - Preliminary, Resulted No Growth after 72 hours. All specime... 03/18/19 Blood Culture - Preliminary, Resulted No Growth after 72 hours. All specime... ANABEL LOYA MD Mar 21, 2019 12:43
[2019-03-21 16:00] VITALS: BP 139/82
[2019-03-21 20:00] VITALS: BP 140/74
[2019-03-21] MEDS: LEVEMIR (INSULIN DETEMIR) 1 UNITS/0.01ML SC SCH (20:49)
[2019-03-21] MEDS: ATORVASTATIN 20 MG TAB PO SCH (20:53)
[2019-03-21] MEDS: GABAPENTIN 300 MG CAP PO SCH (20:53)
[2019-03-22] VITALS (7 sets, daily range): BP systolic 119–166; BP diastolic 64–90
[2019-03-22] MEDS: PIPERACILLIN/TAZOBACTAM SOD 3.375 GM in D5W MINI-BAG PLUS 50 ML IV SCH ×4 (00:38→18:14)
[2019-03-22 05:52] LABS: HEMATOCRIT 33.6 % (42.0-52.0); HEMOGLOBIN 10.5 g/dl (13.5-17.5); MEAN CORPUSCULAR HEMOGLOBIN 29.4 pg (27.0-33.0); MEAN CORPUSCULAR HGB CONC 31.3 g/dl (32.0-36.5); MEAN CORPUSCULAR VOLUME 94.1 fl (80.0-96.0); PLATELET COUNT, AUTOMATED 297 10^3/uL (150-450); RED BLOOD COUNT 3.57 10^6/uL (4.30-6.10); WHITE BLOOD COUNT 11.5 10^3/uL (4.0-10.0)
[2019-03-22 06:25] LABS: ALBUMIN 2.7 GM/DL (3.2-5.2); ALT/SGPT 260 U/L (12-78); BILIRUBIN,TOTAL 1.1 MG/DL (0.2-1.0); BLOOD UREA NITROGEN 17 MG/DL (7-18); CALCIUM LEVEL 8.8 MG/DL (8.8-10.2); CARBON DIOXIDE LEVEL 27 MEQ/L (21-32); CHLORIDE LEVEL 106 MEQ/L (98-107); CREATININE FOR GFR 1.09 MG/DL (0.70-1.30); GLOMERULAR FILTRATION RATE > 60.0 (>35); GLUCOSE, FASTING 169 MG/DL (70-100); POTASSIUM SERUM 3.7 MEQ/L (3.5-5.1); SODIUM LEVEL 140 MEQ/L (136-145); TOTAL PROTEIN 6.5 GM/DL (6.4-8.2)
[2019-03-22] MEDS: SLF 3 ML SYR IV SCH ×3 (06:41→20:39)
--- NOTE | 2019-03-22 06:53 | IPN ---
DATE OF SERVICE: 03/21/2019 HISTORY: The patient was admitted for history of a fall and possible loss of consciousness, but was found to have elevated liver function tests at the time of his admission. His workup revealed choledocholithiasis and he underwent an ERCP on the . Today, the patient is awake and alert and appears comfortable. He did note the passage of some blood in his urine on two occasions this evening and the nurses and his hospitalist are aware of this. He is not complaining of any abdominal pain at this time. Vital signs show that he has been afebrile over the past 24 hours. His pulse is in the 58-80 range and his blood pressure is good. Intake and output shows that he had 1400 in yesterday with 900 out. His weight remained stable from yesterday to today. PHYSICAL EXAMINATION: The patient is alert and comfortable. Heart exam shows a regular rhythm. The abdomen is protuberant and obese, but soft and without any significant tenderness. Examination of the penis shows a small amount of bloody fluid right at the urethral meatus. The patient does have some degree of hypospadias which is quite mild. LABORATORY STUDIES: Showed a white count of 10, hemoglobin of 10, hematocrit of 33 and a platelet count of 275,000. Chemistry profile showed a sodium of 140, potassium 3.7, chloride 108, CO2 of 26, BUN of 22, creatinine 1.2 and a glucose of 182. His total bilirubin has fallen to 1.2 from 2.6 yesterday. His other liver function tests are also decreased from yesterday. IMPRESSION: The patient has done well following his ERCP. His liver function tests are falling toward normal. Today, he noted some blood in the urine this evening. His CT scan earlier in the stay did not show any evidence of a renal mass or any obstruction. PLAN: Dr. Berman will be back tomorrow to address with the patient whether to proceed with a laparoscopic cholecystectomy for his remaining common bile duct stone or stones. The hospitalist apparently indicated to the nurse that he would be consulting urology regarding the hematuria.
[2019-03-22] MEDS: PANTOPRAZOLE 40MG TAB (PROTONIX) PO SCH (08:05)
[2019-03-22] MEDS: HumaLOG INSULIN (NovoLOG) PER UNIT SC SCH ×6 (08:05→20:38)
[2019-03-22] MEDS: FOLIC ACID 1 MG TAB PO SCH (08:05)
[2019-03-22] MEDS: CETIRIZINE (ZyrTEC) 10 MG TAB PO SCH (08:06)
[2019-03-22] MEDS: PREGABALIN 75 MG CAP(LYRICA) PO SCH ×2 (08:06→20:35)
[2019-03-22] MEDS: VITAMIN D 1,000 INTERNATIONAL UNITS TABLET PO SCH (08:06)
[2019-03-22] MEDS: predniSONE 2.5 MG TAB PO SCH (08:06)
--- NOTE | 2019-03-22 08:12 | SMCUROLCON ---
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 Yesterday, he developed gross hematuria dysuria, which was throughout urination and associated with passage of small current sized clots. He's had no prior history of gross hematuria. 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 He denies irritative voiding symptoms. Microhematuria was noted on his admission urinalysis. He is currently on Zosyn. No culture was done on admission. Cultures were negative. CT scan is reviewed and showed a benign appearing left renal cyst on both CT and MRI. No renal masses noted. No obvious bladder deformities noted. He had a catheter placed last night, since which time his urine has been clear. He's had no fevers. He has been on Ellik was, but this is been held for the last several days. He's had minimal voiding problems otherwise. 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 COPD. Surgical Hstory Multiple back and neck surgeries. Previous joint injections. Repair of umbilical hernia Medications Current Medications Current Medications Medications (Trade) Dose Ordered Sig/Lane Route PRN Reason Start Time Stop Time Status Last Admin Dose Admin Albuterol/ Ipratropium (Duoneb (Ipr 0.5mg/Alb 2.5mg)) 1 ml RQID PRN INH SOB/WHEEZING 03/15/19 18:30 Apixaban (Eliquis) 5 mg BID PO 03/15/19 21:00 03/18/19 07:49 DC 03/17/19 21:13 Atorvastatin Calcium (Lipitor) 80 mg QHS PO 03/15/19 21:00 03/21/19 20:53 Bisoprolol Fumarate (Zebeta) 5 mg BID PO 03/17/19 21:00 03/20/19 14:40 DC 03/20/19 09:22 Cetirizine HCl (ZyrTEC) 10 mg DAILY PO 03/16/19 09:00 03/21/19 08:23 Dextrose (Dextrose 50%) 25 ml ASDIRECTED PRN IV SEE LABEL COMMENTS 03/15/19 18:45 Fentanyl Citrate (Sublimaze) 25 mcg Q5MP PRN IV MODERATE PAIN (PS 4-7) 03/19/19 17:45 03/19/19 18:45 DC Fluticasone Propionate (Flonase 0.05% Nasal [place]) 1 spray BID PRN NARES NASAL CONGESTION 03/15/19 18:30 Folic Acid (Folic Acid) 1 mg DAILY PO 03/16/19 09:00 03/21/19 08:23 Gabapentin (Neurontin) 600 mg QHS PO 03/15/19 21:00 03/21/19 20:53 Glucagon (Glucagon) 1 mg ASDIRECTED PRN SC SEE LABEL COMMENTS 03/15/19 18:45 Glucose (Glucose) 16 GM ASDIRECTED PRN PO SEE LABEL COMMENTS 03/15/19 18:45 Home Med (Med Rec Complete!) ASDIRECTED XX 03/15/19 17:30 03/15/19 17:24 DC Ibuprofen (Advil) 600 mg Q6HP PRN PO headache 03/18/19 12:30 03/18/19 13:46 Insulin Detemir (Levemir Insulin) 15 units QHS SC 03/15/19 21:00 03/21/19 20:49 Insulin Human Lispro (HumaLOG INSULIN) SEE PROTOCOL TABLE AC SC 03/16/19 07:30 03/21/19 18:07 Lactated Ringer's 1,000 ml @ 100 mls/hr Q10H IV 03/19/19 17:45 03/19/19 18:45 DC Lisinopril (Prinivil) 20 mg QHS PO 03/15/19 21:00 03/18/19 07:37 DC 03/16/19 20:38 Magnesium Sulfate/ Dextrose 1 gm/IV Miscellaneous Supplies 100 ml @ 100 mls/hr Q1H IV 03/16/19 11:00 03/16/19 12:59 DC 03/16/19 13:11 Metoclopramide HCl (REGLAN INJection) 10 mg Q6HP PRN IV NAUSEA OR VOMITING 03/19/19 17:45 03/19/19 18:45 DC Metoprolol Tartrate (Lopressor) 5 mg STAT STAT IV 03/17/19 15:13 03/17/19 15:14 DC 03/17/19 15:36 Metoprolol Tartrate (Lopressor) 5 mg STAT STAT IV 03/17/19 15:55 03/17/19 15:56 DC 03/17/19 16:07 Metoprolol Tartrate (Lopressor) 5 mg STAT STAT IV 03/17/19 16:23 03/17/19 16:24 DC 03/17/19 16:35 Ondansetron HCl (ZOFRAN INJection) 4 mg Q4HP PRN IV NAUSEA OR VOMITING 03/19/19 17:45 03/19/19 18:45 DC Ondansetron HCl (ZOFRAN INJection) 4 mg Q6HP PRN IV NAUSEA OR VOMITING 03/17/19 10:30 03/17/19 10:53 Oxycodone/ Acetaminophen (Percocet 5mg/ 325mg Tablet) 1 tab ASDIRECTED PRN PO MILD/MODERATE PAIN (PS 1-7) 03/19/19 17:45 03/19/19 18:45 DC Pantoprazole Sodium (Protonix) 40 mg DAILY PO 03/16/19 09:00 03/21/19 08:23 Piperacillin Sod/ Tazobactam Sod 3.375 gm/Dextrose 50 ml @ 50 mls/hr Q6H IV 03/18/19 13:00 03/22/19 06:42 Prednisone (Deltasone) 2.5 mg DAILY PO 03/16/19 09:00 03/21/19 08:23 Pregabalin (Lyrica) 75 mg BID PO 03/15/19 21:00 03/21/19 20:53 Salmeterol Xinafoate/ Fluticasone (Advair Hfa 230/ 21) 2 puff RBID INH 03/15/19 20:00 03/21/19 19:58 Sodium Chloride 1,000 ml @ 100 mls/hr Q10H IV 03/19/19 08:15 03/20/19 11:48 DC 03/20/19 00:02 Sodium Chloride 1,000 ml @ 110 mls/hr Q9H6M IV 03/15/19 19:00 03/16/19 16:43 DC 03/16/19 05:18 Sodium Chloride 1,000 ml @ 150 mls/hr Q6H40M IV 03/15/19 16:08 03/15/19 23:57 DC 03/15/19 17:12 Sodium Chloride (Saline Lock Flush) 2 ml ASDIRECTED PRN IV SEE LABEL COMMENTS 03/20/19 12:00 Sodium Chloride (Saline Lock Flush) 2 ml SLF IV 03/20/19 14:00 03/22/19 06:41 Tramadol HCl (Ultram) 50 mg Q6HP PRN PO MODERATE PAIN (PS 5-7) 03/21/19 08:30 03/21/19 21:21 Verapamil HCl (Calan) 40 mg BID PO 03/15/19 21:00 03/21/19 20:51 Vitamin D (Vitamin D) 1,000 units DAILY PO 03/16/19 09:00 03/21/19 08:23 Allergies Allergies: Coded Allergies: leflunomide (Verified Allergy, Intermediate, ITCHY AND SWELLING, 03/15/19) buspirone (Verified Adverse Reaction, Intermediate, AGITIATION, 03/15/19) Review of Systems General: Denies: ROS Unobtainable, Chills, Night Sweats, Fatigue, Malaise, Normal Appetite, Other Symptoms Constitutional: Denies: Fever, Chills, Sweats, Weakness, Malaise, Other Eyes: Denies: Pain, Vision change, Conjunctivae inflammation, Eyelid inflammation, Redness, Other ENT: Denies: Head Aches, Ear Pain, Dysphagia, Sinus Congestion, Post Nasal Drip, Sore Throat, Epistaxis, Other Symptoms Skin: Denies: Rash, Lesions, Jaundice, Bruising, Itching, Dry, Breakdown, Nail Changes, Other Pulmonary: Reports: Dyspnea (occasional); Denies: Cough, Pleuritic Chest Pain, Other Symptoms Cardiovascular: Denies Chest Pain, Denies Palpitations, Denies Orthopnea, Denies Paroxysmal Noc. Dyspnea, Denies Edema, Denies Lt Headedness, Denies Other Symptoms Gastrointestinal: Reports: Nausea, Abdominal Pain Genitourinary: Reports: Dysuria, Frequency, Incontinence, Hematuria (see HPI), Retention, Other Symptoms Hematologic: Denies: Bruising, Bleeding Excessively, Petecchia, Purpura, Enlarged Lymph Nodes, Other Hematologic Endocrine: Denies: Polydipsia, Polyphagia, Polyuria, Heat Intolerance, Cold Intolerance, Other Endocrine Sx Musculoskeletal: Denies: Neck Pain, Back Pain, Shoulder Pain, Arm Pain, Hand Pain, Leg Pain, Foot Pain, Joint Pain, Muscle Pain, Spasms, Other Symptoms Neurological: Reports: Other Symptoms (cognitive slowing) Psych: Reports: Mood Normal; Denies: Anxiety, Depression, Memory Issues, Thoughts of Self Harm, Anger, Thoughts of harming Other, Other Psych Physical Examination General Exam: Alert, Cooperative, No Acute Distress EYE EXAM: PERRLA, Conjunctiva & lids normal, EOMI ENT EXAM: Atraumatic, Mucous membr. moist/pink Neck Exam: Supple Chest Exam: Clear to auscultation, Normal air movement Heart Exam: Irregular Rhythm; No: Rate Normal Abdomen Exam: Normal Bowel Sounds, Other (scar from previous umbilical herniorrhaphy) Male Exam: Normal Genital Exam, Normal Prostate (25-30 g and smooth), Normal Sphincter Tone Extremity Exam: Normal Pulses Skin Exam: Nl turgor and temperature Neuro Exam: Cranial Nerves 3-12 NL Psych Exam: Mental status NL, Mood NL Vital Signs/I&O Vital Signs Date Time Temp Pulse Resp B/P (MAP) Pulse Ox O2 Delivery O2 Flow Rate FiO2 03/22/19 04:00 97.0 63 19 141/81 (101) 96 NIPPV (BIPAP/CPAP) 03/17/19 16:22 2.0 I&O- Last 24 Hours up to 6 AM 03/22/19 06:00 Intake Total 1105 ml Output Total 2550 ml Balance -1445 ml Laboratory Data 24H Labs Laboratory Tests 2 03/21/19 11:38: Bedside Glucose (Misc Panel) 249H 03/21/19 16:32: Bedside Glucose (Misc Panel) 265H 03/21/19 20:47: Bedside Glucose (Misc Panel) 192H 03/22/19 05:32: Nucleated Red Blood Cells % (auto) 0.0, Anion Gap 7L, Glomerular Filtration Rate > 60.0, Calcium Level 8.8, Total Bilirubin 1.1H, Aspartate Amino Transf (AST/SGOT) 73H, Alanine Aminotransferase (ALT/SGPT) 260H, Alkaline Phosphatase 425H, Total Protein 6.5, Albumin 2.7L, Albumin/Globulin Ratio 0.71L CBC/BMP Laboratory Tests 03/22/19 05:32 Microbiology Microbiology 03/21/19 Stool Occult Blood (SABINE) - Final, Complete 03/19/19 Stool Occult Blood (SABINE) - Final, Complete 03/18/19 Blood Culture - Preliminary, Resulted No Growth after 72 hours. All specime... 03/18/19 Blood Culture - Preliminary, Resulted No Growth after 72 hours. All specime... Assessment Impression: Gross hematuria on Eliquus, now resolved. History of significant smoke exposures. Benign-appearing left renal cyst. Plan Plan: Advise outpatient cystoscopy after resolution of current gallstone-related issues. The catheter to be removed. Thank you for this consult. I will follow the patient with you. The patient and his family are agreeable to this plan, and their questions are answered. KASIE BRAMBILA MD Mar 22, 2019 08:12
[2019-03-22] MEDS: VERAPAMIL 40 MG TAB PO SCH ×2 (08:14→20:36)
[2019-03-22] MEDS: ADVAIR HFA 230/21MCG INHALER INH SCH ×2 (09:15→20:26)
[2019-03-22] MEDS: traMADol 50 MG TAB PO PRN ×2 (09:20→20:52)
--- NOTE | 2019-03-22 11:52 | CR ---
DATE OF CONSULTATION: 03/19/2019 This is an 79-year-old white male being seen by GI for evaluation of upper abdominal pain and abnormal liver function tests. The patient has multiple medical problems including rheumatoid arthritis, multiple back operations, hypertension, asthma, diabetes mellitus type 2. The patient apparently has had previous diagnosis of mild cognitive slowing. The past 2 days prior to admission, the patient has apparently been more forgetful. He apparently had an episode where he lost consciousness. No apparent history of seizures. The patient is being seen by GI for evaluation of upper abdominal pain, abnormal imaging and abnormal liver functions. Past medications apparently include Eliquis, a statin, Invokana, vitamin D, Trulicity and folic acid. SOCIAL HISTORY: Negative for alcohol. The patient has previous history of smoking in the past. ALLERGIES: 1. BUSPAR. REVIEW OF SYSTEMS: Noncontributory. PHYSICAL EXAMINATION: General: Well-developed, well-nourished white male no obvious acute distress. Appears stated age. Chest is clear to auscultation. Cardiovascular exam showed regular rhythm. No murmurs or gallops. Normal physiological split, S1-S2. Abdomen soft, nontender. No masses, guarding or rebound. No hepatosplenomegaly. Bowel sounds positive. LABORATORY STUDIES: Laboratory studies on admission showed a white count of 7800, hemoglobin and hematocrit 13.7/42.3. The patient's chemistries on admission showed a total bilirubin on admission 3.2 and transaminases were elevated 162, 267 and alkaline phosphatase was 266. The bilirubin throughout the hospitalization jemima to a level of 5.8 and has been gradually decreasing. The patient's imaging included a MRCP which did show two apparent lucencies in the biliary tract consistent with choledocholithiasis. ANALYSIS: Abdominal pain, abnormal imaging and abnormal liver function tests. PLAN: Plan will be to set the patient up for a ERCP, papillotomy and probable balloon sweep. Informed consent has been given to the patient. As for the ERCP, if successful the patient will need to followup with surgery for a laparoscopic cholecystectomy.
[2019-03-22] MEDS ORDERED: GLUCAGON FOR INJ 1 MG VIAL (J1610) SC PRN (12:30)
[2019-03-22] MEDS ORDERED: GLUCOSE 4 GM CHEW TABLET PO PRN (12:30)
[2019-03-22] MEDS ORDERED: DEXTROSE 50% 50 ML SYRINGE IV PRN (12:30)
--- NOTE | 2019-03-22 17:11 | IPNPDOC ---
Date Seen The patient was seen on 03/22/19. Progress Note SUBJECTIVE: Patient reports abdominal pain is getting better. Hematuria also seem to have stopped. Reportedly "pinched" himself yesterday while he urinated and has had several episodes of bleeding. Was seen by Urology this morning. Liver functions improving. Noted to have another pause of 1.9s today with rate of 45 but asymptomatic. Current HR 55-60. OBJECTIVE PHYSICAL EXAMINATION: VITAL SIGNS: Please see below. General: No acute distress, Alert Eyes: Normal sclera, EOMI HENT: Atraumatic, neck supple Cardiovascular: Normal rate Pulmonary: Clear to auscultation b/l, no wheezing MSK: L. posterior back soreness/tenderness GI: Soft, mild generalized tenderness. Skin: Warm and dry Neuro: CN grossly intact. No focal deficits. Strengths equal b/l. Psych: oriented x 3 LABORATORY DATA, IMAGING STUDIES, MICROBIOLOGY: Please see below. DVT prophylaxis ordered?: Eliquis on hold. SCDs ASSESSMENT AND PLAN: 1. Choledocholithiasis - s/p ERCP for stone removal by GI. Hyperbilirubinemia and Transaminitis improving. - Hepatitis panel negative. - Cholithiasis noted on abdominal US. F/u w/ surgery regarding timing of cholecystectomy. 2. LILIA - likely 2/2 dehydration. Improving. - IVF support. 3. Fall - PT/OT 4. Acute Hepatic encephalopathy - CT head negative for acute findings x 2. - Total bilirubin elevated up to 5.8 during course of hospitalization, trending down. 5. Lumbar spinal stenosis 6. Afib w/ RVR - Resolved. Discussed with Dr. Turner, appreciated assistance. - Eliquis on hold in setting of recent GI bleed. - Normally on Verapamil at home, Bisoprolol 5mg BID added but now d/c due to nighttime bradycardia and pauses. - D/c BB at this time. 7. Bleeding per rectum - No evidence of external hemorrhoid noted on exam. - Eliquis held. GI following. - FOBT negative x1. Repeat. 8. Intermittent episodes of bradycardia and pauses - Happens mostly at night, one episode noted during the day today for 1.9s. - Asymptomatic. Obtain EKG. BB had been discontinued. - On only verapamil for Afib at this time, patient's home med. DVT ppx: SCD. Code status: Full code VS, I&O, 24H, Fishbone Vital Signs/I&O Vital Signs Date Time Temp Pulse Resp B/P (MAP) Pulse Ox O2 Delivery O2 Flow Rate FiO2 03/22/19 17:03 58 121/80 (94) 03/22/19 16:00 96.9 19 94 Room Air 03/17/19 16:22 2.0 I&O- Last 24 Hours up to 6 AM 03/22/19 06:00 Intake Total 1105 ml Output Total 2550 ml Balance -1445 ml Laboratory Data 24H LABS Laboratory Tests 2 03/21/19 20:47: Bedside Glucose (Misc Panel) 192H 03/22/19 05:32: Nucleated Red Blood Cells % (auto) 0.0, Anion Gap 7L, Glomerular Filtration Rate > 60.0, Calcium Level 8.8, Total Bilirubin 1.1H, Aspartate Amino Transf (AST/SGOT) 73H, Alanine Aminotransferase (ALT/SGPT) 260H, Alkaline Phosphatase 425H, Total Protein 6.5, Albumin 2.7L, Albumin/Globulin Ratio 0.71L 03/22/19 11:59: Bedside Glucose (Misc Panel) 230H CBC/BMP Laboratory Tests 03/22/19 05:32 Microbiology Microbiology 03/21/19 Stool Occult Blood (SABINE) - Final, Complete 03/19/19 Stool Occult Blood (SABINE) - Final, Complete 03/18/19 Blood Culture - Preliminary, Resulted No Growth after 72 hours. All specime... 03/18/19 Blood Culture - Preliminary, Resulted No Growth after 72 hours. All specime... ANABEL LOYA MD Mar 22, 2019 17:11
--- NOTE | 2019-03-22 18:45 | ECGEPIP ---
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 Clinical correlation advised Electronically Signed on 03-22-2019 18:45:13 EDT by Shaheen Josue
[2019-03-22] MEDS: ATORVASTATIN 20 MG TAB PO SCH (20:35)
[2019-03-22] MEDS: GABAPENTIN 300 MG CAP PO SCH (20:36)
[2019-03-22] MEDS: LEVEMIR (INSULIN DETEMIR) 1 UNITS/0.01ML SC SCH (20:37)
[2019-03-23] VITALS (8 sets, daily range): BP systolic 118–171; BP diastolic 68–94
[2019-03-23] MEDS: PIPERACILLIN/TAZOBACTAM SOD 3.375 GM in D5W MINI-BAG PLUS 50 ML IV SCH ×4 (00:29→18:39)
[2019-03-23] MEDS: SLF 3 ML SYR IV SCH ×3 (04:57→21:05)
[2019-03-23 06:37] LABS: HEMATOCRIT 35.1 % (42.0-52.0); HEMOGLOBIN 11.3 g/dl (13.5-17.5); MEAN CORPUSCULAR HEMOGLOBIN 30.6 pg (27.0-33.0); MEAN CORPUSCULAR HGB CONC 32.2 g/dl (32.0-36.5); MEAN CORPUSCULAR VOLUME 95.1 fl (80.0-96.0); PLATELET COUNT, AUTOMATED 298 10^3/uL (150-450); RED BLOOD COUNT 3.69 10^6/uL (4.30-6.10); WHITE BLOOD COUNT 14.4 10^3/uL (4.0-10.0)
[2019-03-23 07:03] LABS: ALBUMIN 2.8 GM/DL (3.2-5.2); ALT/SGPT 263 U/L (12-78); BILIRUBIN,TOTAL 1.4 MG/DL (0.2-1.0); BLOOD UREA NITROGEN 14 MG/DL (7-18); CARBON DIOXIDE LEVEL 28 MEQ/L (21-32); CHLORIDE LEVEL 104 MEQ/L (98-107); GLOMERULAR FILTRATION RATE > 60.0 (>35); GLUCOSE, FASTING 129 MG/DL (70-100); POTASSIUM SERUM 3.5 MEQ/L (3.5-5.1); SODIUM LEVEL 139 MEQ/L (136-145); TOTAL PROTEIN 6.6 GM/DL (6.4-8.2)
[2019-03-23] MEDS: HumaLOG INSULIN (NovoLOG) PER UNIT SC SCH ×7 (07:30→21:00)
[2019-03-23] MEDS: PANTOPRAZOLE 40MG TAB (PROTONIX) PO SCH (08:24)
[2019-03-23] MEDS: VERAPAMIL 40 MG TAB PO SCH ×2 (08:24→20:58)
[2019-03-23] MEDS: VITAMIN D 1,000 INTERNATIONAL UNITS TABLET PO SCH (08:24)
[2019-03-23] MEDS: FOLIC ACID 1 MG TAB PO SCH (08:24)
[2019-03-23] MEDS: predniSONE 2.5 MG TAB PO SCH (08:24)
[2019-03-23] MEDS: CETIRIZINE (ZyrTEC) 10 MG TAB PO SCH (08:24)
[2019-03-23] MEDS: traMADol 50 MG TAB PO PRN (08:26)
[2019-03-23] MEDS: PREGABALIN 75 MG CAP(LYRICA) PO SCH ×2 (08:26→20:55)
[2019-03-23] MEDS: ADVAIR HFA 230/21MCG INHALER INH SCH ×2 (08:40→21:25)
[2019-03-23] MEDS: IBUPROFEN 600 MG TAB PO PRN (12:43)
[2019-03-23] MEDS ORDERED: PILL CUTTER 1 EACH XX PRN (14:30)
--- NOTE | 2019-03-23 16:29 | IPNPDOC ---
Subjective Review oF Systems Chief Complaint The patient is a 79-year-old male admitted with a reason for visit of Acute Kidney Injury,Closed Head Injury,Fall,Spinal. Events since Last Encounter Pt had another episode of terminal hematuria last night. Clear today. No irritative sx. C&S pending. General: Denies: ROS Unobtainable, Chills, Night Sweats, Fatigue, Malaise, Normal Appetite, Other Symptoms Constitutional: Denies: Fever, Chills, Sweats, Weakness, Malaise, Other Genitourinary: Reports: Hematuria Objective Physical Examination General Exam: Alert, Cooperative, No Acute Distress Eye Exam: PERRLA ENT EXAM: Atraumatic Neck Exam: Supple Chest Exam: Normal air movement Heart Exam: Positive: Irregular Rhythm; Negative: Rate Normal Vital Signs/I&O Vital Signs Date Time Temp Pulse Resp B/P (MAP) Pulse Ox O2 Delivery O2 Flow Rate FiO2 03/23/19 16:00 97.2 68 18 118/79 (92) 97 Room Air 03/17/19 16:22 2.0 I&O- Last 24 Hours up to 6 AM 03/23/19 05:59 Intake Total 1830 ml Output Total 3000 ml Balance -1170 ml Laboratory Data Labs 24H Laboratory Tests 2 03/22/19 17:50: Bedside Glucose (Misc Panel) 150H 03/22/19 20:23: Bedside Glucose (Misc Panel) 216H 03/23/19 06:02: Nucleated Red Blood Cells % (auto) 0.0, Anion Gap 7L, Glomerular Filtration Rate > 60.0, Calcium Level 9.0, Total Bilirubin 1.4H, Aspartate Amino Transf (AST/SGOT) 101H, Alanine Aminotransferase (ALT/SGPT) 263H, Alkaline Phosphatase 376H, Total Protein 6.6, Albumin 2.8L, Albumin/Globulin Ratio 0.74L 03/23/19 11:44: Bedside Glucose (Misc Panel) 201H CBC/BMP Laboratory Tests 03/23/19 06:02 FSBS Laboratory Tests Test 03/22/19 17:50 03/22/19 20:23 03/23/19 11:44 Range/Units Bedside Glucose (Misc Panel) 150 216 201 83-110 MG/DL Microbiology Microbiology 03/21/19 Stool Occult Blood (SABINE) - Final, Complete 03/19/19 Stool Occult Blood (SABINE) - Final, Complete 03/18/19 Blood Culture - Final, Complete NO GROWTH AFTER 5 DAYS 03/18/19 Blood Culture - Final, Complete NO GROWTH AFTER 5 DAYS Assessment/Plan Date Seen The patient was seen on 03/23/19. Patient Summary A: Intermittent hematuria P: Eventual (out pt) cysto when GI issues controlled. Following Plan/VTE VTE Prophylaxis Ordered?: Yes KASIE BRAMBILA MD Mar 23, 2019 16:29
--- NOTE | 2019-03-23 18:45 | IPNPDOC ---
Date Seen The patient was seen on 03/23/19. Progress Note SUBJECTIVE: Patient still reports feeling well today, no particular complaints. No hematuria noted today. Liver enzymes fluctuating, no significant change from prior. OBJECTIVE PHYSICAL EXAMINATION: VITAL SIGNS: Please see below. General: No acute distress, Alert Eyes: Normal sclera, EOMI HENT: Atraumatic, neck supple Cardiovascular: Normal rate Pulmonary: Clear to auscultation b/l, no wheezing MSK: L. posterior back soreness/tenderness GI: Soft, mild generalized tenderness. Skin: Warm and dry Neuro: CN grossly intact. No focal deficits. Strengths equal b/l. Psych: oriented x 3 LABORATORY DATA, IMAGING STUDIES, MICROBIOLOGY: Please see below. DVT prophylaxis ordered?: Eliquis on hold. SCDs ASSESSMENT AND PLAN: 1. Choledocholithiasis - s/p ERCP for stone removal by GI. Hyperbilirubinemia and Transaminitis improving. - Hepatitis panel negative. - Cholithiasis noted on abdominal US. Plan to follow up with surgery outpatient for cholecystectomy. 2. LILIA - likely 2/2 dehydration. Improving. - IVF support. 3. Fall - PT/OT 4. Acute Hepatic encephalopathy - CT head negative for acute findings x 2. - Total bilirubin elevated up to 5.8 during course of hospitalization, trending down. 5. Lumbar spinal stenosis 6. Afib w/ RVR - Resolved. Discussed with Dr. Turner, appreciated assistance. - Eliquis on hold in setting of recent GI bleed. - Normally on Verapamil at home, Bisoprolol 5mg BID added but now d/c due to nighttime bradycardia and pauses. - D/c BB at this time. Verapamil dose reduced. 7. Bleeding per rectum - No evidence of external hemorrhoid noted on exam. - Eliquis held. GI following. - FOBT negative x1. Repeat. 8. Intermittent episodes of bradycardia and pauses - Happens usually at night, one episode noted during the day today for 1.9s. - Asymptomatic. BB had been discontinued. - Discussed with cardiology Dr. Singh, verapamil dose reduced to half 20 mg B ID. DVT ppx: SCD. Code status: Full code VS, I&O, 24H, Fishbone Vital Signs/I&O Vital Signs Date Time Temp Pulse Resp B/P (MAP) Pulse Ox O2 Delivery O2 Flow Rate FiO2 10/22/19 16:00 97.2 68 18 118/79 (92) 97 Room Air 03/17/19 16:22 2.0 I&O- Last 24 Hours up to 6 AM 03/23/19 06:00 Intake Total 1680 ml Output Total 2650 ml Balance -970 ml Laboratory Data 24H LABS Laboratory Tests 2 03/22/19 20:23: Bedside Glucose (Misc Panel) 216H 03/23/19 06:02: Nucleated Red Blood Cells % (auto) 0.0, Anion Gap 7L, Glomerular Filtration Rate > 60.0, Calcium Level 9.0, Total Bilirubin 1.4H, Aspartate Amino Transf (A ST/SGOT) 101H, Alanine Aminotransferase (ALT/SGPT) 263H, Alkaline Phosphatase 376H, Total Protein 6.6, Albumin 2.8L, Albumin/Globulin Ratio 0.74L 03/23/19 11:44: Bedside Glucose (Misc Panel) 201H 03/23/19 17:08: Bedside Glucose (Misc Panel) 170H CBC/BMP Laboratory Tests 03/23/19 06:02 Microbiology Microbiology 03/21/19 Stool Occult Blood (SABINE) - Final, Complete 03/19/19 Stool Occult Blood (SABINE) - Final, Complete 03/18/19 Blood Culture - Final, Complete NO GROWTH AFTER 5 DAYS 03/18/19 Blood Culture - Final, Complete NO GROWTH AFTER 5 DAYS ANABEL LOYA MD Mar 23, 2019 18:45
[2019-03-23] MEDS: LEVEMIR (INSULIN DETEMIR) 1 UNITS/0.01ML SC SCH (20:54)
[2019-03-23] MEDS: GABAPENTIN 300 MG CAP PO SCH (20:55)
[2019-03-23] MEDS: ATORVASTATIN 20 MG TAB PO SCH (20:55)
[2019-03-24] VITALS: BP 132/70
[2019-03-24] MEDS: PIPERACILLIN/TAZOBACTAM SOD 3.375 GM in D5W MINI-BAG PLUS 50 ML IV SCH ×2 (00:34→06:43)
[2019-03-24] MEDS: traMADol 50 MG TAB PO PRN ×2 (00:41→08:17)
[2019-03-24 04:00] VITALS: BP 146/88
[2019-03-24] MEDS: SLF 3 ML SYR IV SCH (05:11)
[2019-03-24] MEDS: HumaLOG INSULIN (NovoLOG) PER UNIT SC SCH ×2 (07:30→08:16)
[2019-03-24] MEDS: ADVAIR HFA 230/21MCG INHALER INH SCH (07:33)
--- NOTE | 2019-03-24 07:58 | IPNPDOC ---
Subjective Review oF Systems Chief Complaint The patient is a 79-year-old male admitted with a reason for visit of Acute Kidney Injury,Closed Head Injury,Fall,Spinal. Events since Last Encounter No complaints. Feeling better. No further bleeding. General: Denies: ROS Unobtainable, Chills, Night Sweats, Fatigue, Malaise, Normal Appetite, Other Symptoms Constitutional: Denies: Fever, Chills, Sweats, Weakness, Malaise, Other Gastrointestinal: Reports: Hematochezia; Denies: Nausea, Vomiting, Abdominal Pain, Diarrhea, Constipation, Melena, Other Symptoms Genitourinary: Denies: Dysuria, Frequency, Incontinence, Hematuria, Retention, Other Symptoms Objective Physical Examination General Exam: Alert, Cooperative, No Acute Distress Eye Exam: PERRLA ENT EXAM: Atraumatic Neck Exam: Supple Chest Exam: Normal air movement Heart Exam: Positive: Irregular Rhythm; Negative: Rate Normal Vital Signs/I&O Vital Signs Date Time Temp Pulse Resp B/P (MAP) Pulse Ox O2 Delivery O2 Flow Rate FiO2 03/24/19 04:00 97.3 67 18 146/88 (107) 95 Room Air I&O- Last 24 Hours up to 6 AM 03/24/19 06:00 Intake Total 1390 ml Output Total 2400 ml Balance -1010 ml Laboratory Data Labs 24H Laboratory Tests 2 03/23/19 11:44: Bedside Glucose (Misc Panel) 201H 03/23/19 17:08: Bedside Glucose (Misc Panel) 170H 03/23/19 20:51: Bedside Glucose (Misc Panel) 237H 03/24/19 07:51: Bedside Glucose (Misc Panel) 147H FSBS Laboratory Tests Test 03/23/19 11:44 03/23/19 17:08 03/23/19 20:51 03/24/19 07:51 Range/Units Bedside Glucose (Misc Panel) 201 170 237 147 83-110 MG/DL Microbiology Microbiology 03/21/19 Stool Occult Blood (SABINE) - Final, Complete 03/19/19 Stool Occult Blood (SABINE) - Final, Complete 03/18/19 Blood Culture - Final, Complete NO GROWTH AFTER 5 DAYS 03/18/19 Blood Culture - Final, Complete NO GROWTH AFTER 5 DAYS Assessment/Plan Date Seen The patient was seen on 03/24/19. Patient Summary Impression: Intermittent gross hematuria in a patient on anticoagulation. Differential includes small bladder tumor or bleeding prostatic varices as most likely source Plan/VTE VTE Prophylaxis Ordered?: Yes Plan Plan: Arrange office cystoscopy. 2-3 weeks following discharge to complete hematuria evaluation. The patient is agreeable to this plan and his questions are answered. Sign off. KASIE BRAMBILA MD Mar 24, 2019 07:58
[2019-03-24 08:00] VITALS: BP 149/100
[2019-03-24] MEDS: predniSONE 2.5 MG TAB PO SCH (08:15)
[2019-03-24] MEDS: VERAPAMIL 40 MG TAB PO SCH (08:15)
[2019-03-24] MEDS: PANTOPRAZOLE 40MG TAB (PROTONIX) PO SCH (08:17)
[2019-03-24] MEDS: VITAMIN D 1,000 INTERNATIONAL UNITS TABLET PO SCH (08:17)
[2019-03-24] MEDS: FOLIC ACID 1 MG TAB PO SCH (08:17)
[2019-03-24] MEDS: CETIRIZINE (ZyrTEC) 10 MG TAB PO SCH (08:17)
[2019-03-24] MEDS: PREGABALIN 75 MG CAP(LYRICA) PO SCH (08:18)
[2019-03-24 08:22] LABS: HEMATOCRIT 35.3 % (42.0-52.0); HEMOGLOBIN 11.4 g/dl (13.5-17.5); MEAN CORPUSCULAR HEMOGLOBIN 30.2 pg (27.0-33.0); MEAN CORPUSCULAR HGB CONC 32.3 g/dl (32.0-36.5); MEAN CORPUSCULAR VOLUME 93.6 fl (80.0-96.0); PLATELET COUNT, AUTOMATED 300 10^3/uL (150-450); RED BLOOD COUNT 3.77 10^6/uL (4.30-6.10); WHITE BLOOD COUNT 13.7 10^3/uL (4.0-10.0)
[2019-03-24 08:48] LABS: ALBUMIN 2.9 GM/DL (3.2-5.2); BILIRUBIN,DIRECT 0.5 MG/DL (0.0-0.2); BILIRUBIN,TOTAL 1.5 MG/DL (0.2-1.0)
[2019-03-24 08:50] LABS: BLOOD UREA NITROGEN 12 MG/DL (7-18); CALCIUM LEVEL 8.8 MG/DL (8.8-10.2); CARBON DIOXIDE LEVEL 29 MEQ/L (21-32); CHLORIDE LEVEL 104 MEQ/L (98-107); CREATININE FOR GFR 0.96 MG/DL (0.70-1.30); GLOMERULAR FILTRATION RATE > 60.0 (>35); GLUCOSE, FASTING 145 MG/DL (70-100); SODIUM LEVEL 140 MEQ/L (136-145)
[2019-03-24] MEDS ORDERED: VERA40TA PO (10:28)
[2019-03-24] MEDS ORDERED: TRAM50TA2 PO (10:28)
--- NOTE | 2019-03-24 10:35 | DS.PDOC ---
Discharge Summary General Date of Admission Mar 15, 2019 at 14:36 Date of Discharge 03/24/19 Discharge Summary PROCEDURES PERFORMED DURING STAY: ERCP Impression: - Choledocholithiasis was found. Complete removal was accomplished by biliary sphincterotomy and balloon extraction. - A biliary sphincterotomy was performed. - The biliary tree was swept. - The examination was otherwise normal. Recommendation: - [facility]. - Continue present medications. - Watch for pancreatitis, bleeding, perforation, and cholangitis. - The findings and recommendations were discussed with the patient's family. ADMITTING DIAGNOSES: 1. AMS 2. Hyperbilirubinemia 3. Fall 4. Closed head injury 5. Spinel stenosis with neurogenic claudication 6. Rheumatoid arthritis 7. HTN 8. Asthma 9. DM type 2 DISCHARGE DIAGNOSES: 1. Acute hepatic encephalopathy 2. Hyperbilirubinemia 3. Fall 4. Closed head injury 5. Spinel stenosis with neurogenic claudication 6. Rheumatoid arthritis 7. HTN 8. Asthma 9. DM type 2 10. Choledocholithiasis s/p ERCP 11. Hematuria 12. Bradycardia COMPLICATIONS/CHIEF COMPLAINT: Acute Kidney Injury,Closed Head Inj ury,Fall,Spinal. HISTORY OF PRESENT ILLNESS: "Patient is 79 years old male with medical history of rheumatoid arthritis, multiple back surgeries, hypertension, asthma, diabetes mellitus type 2, arth ritis presented hospital with mild cognitive slowing. According to his patient for past 2 days became more forgetful. Patient stated that 3 days ago he fell in his bathroom, hit his head, presumably he lost his consciousness. Patient denied any urinary incontinence or seizures. 2 days ago patient developed one episode of vomiting and multiple episodes of diarrhea. Patient did have very poor oral intake, did not drink enough fluid. In ER patient was found to have on CT head no stroke, no acute bleeding, CT lumbar, thoracic, cervical was negative. Also patient was found to have transaminitis with total bilirubin 3.2, alkaline phosphatase 266 Patient denied fever, chills, shortness of breath, palpitations, dysuria" HOSPITAL COURSE: Patient was observed to have continued increased in liver enzymes and bilirubin during the first several days of admission. Subsequent images showed perla docholithiasis but no dilatation of CBD. MRCP showed filling defects and patient subsequently underwent ERCP with GI. Patient's mental status continues to improve and appear to be back at his baseline compare to likely hepatic encephalopathy from presentation. Liver enzymes and bilirubin continues to improve. Course of admission complicated by hematuria and was evaluated by urology and plan for patient to undergo outpatient cystoscopy post discharge. He is also to f/u surgery as outpatient when Dr. Berman returns for likely scheduling of cholecystectomy. He can resume his Eliquis and started on Tramadol for L. sided rib pain post fall. In addition, patient's verapamil was reduced in half from 40mg BID to 20mg BID after having several episodes of pauses and asymptomatic bradycardia. Plan discussed with Dr. 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 Patient to follow up with his cardiology to any further adjustment that may be needed. He initially was in Afib w/ RVR on presentation requiring addition of Bisoprolol until stabelization. BB had been discontinued and he is only back on his home med ications. DISCHARGE MEDICATIONS: Please see below. ALLERGIES: Please see below. PHYSICAL EXAMINATION ON DISCHARGE: VITAL SIGNS: Please see below. General: No acute distress, Alert Eyes: Normal sclera, EOMI HENT: Atraumatic, neck supple Cardiovascular: Normal rate Pulmonary: Clear to auscultation b/l, no wheezing MSK: L. posterior back soreness/tenderness GI: Soft, mild generalized tenderness. Skin: Warm and dry Neuro: CN grossly intact. No focal deficits. Strengths equal b/l. Psych: oriented x 3 LABORATORY DATA: Please see below. IMAGING: Head CT- Findings: There is no acute intracranial hemorrhage, acute cortical infarction, mass effect or hydrocephalous. No acute calvarial fracture is detected. Volume loss is present. Scattered areas of hypoattenuation throughout the white matter are noted most consistent with sequelae of chronic microangiopathic ischemic disease. There is a small calcified focus along the inner table of the right frontal lobe likely representing a tiny involuted meningioma. Impression: No acute intracranial process. Abdomen/Pelvis CT- Impression: No traumatic abnormality noted. Small cyst left mid kidney. HIDA- IMPRESSION: Nonvisualization of the gallbladder through 3-1/2 hours. The extrahepatic bile ducts and the small intestine are not labeled either. The pattern suggests complete extrahepatic bile duct obstruction versus cholestasis and hepatocellular dysfunction. MRCP- Impression: Findings consistent with choledocholithiasis with two rounded filling defects 5 mm in diameter in the non-dilated CBD. The gallbladder shows pericholecystic fluid. There is one similar sized filling defect in the gallbladder consistent with gallstones. The gallbladder appears somewhat larger than it did at the time of the CT and ultrasound from March 15, 2019. ACTIVITY: [As tolerated]. DIET: Consistent carbohydrate DISCHARGE PLAN: f/u PMD f/u Surgery as soon as possible for elective cholecystectomy f/u urology in 2-3 weeks for hematuria evaluation DISPOSITION: Home. DISCHARGE INSTRUCTIONS: f/u PMD f/u Surgery as soon as possible for elective cholecystectomy f/u urology in 2-3 weeks for hematuria evaluation ITEMS TO FOLLOWUP ON ON OUTPATIENT: None DISCHARGE CONDITION: [Stable]. TIME SPENT ON DISCHARGE: 35 minutes. Vital Signs/I&Os Vital Signs Date Time Temp Pulse Resp B/P (MAP) Pulse Ox O2 Delivery O2 Flow Rate FiO2 03/24/19 08:47 20 03/24/19 08:17 Room Air 03/24/19 08:00 97.3 87 149/100 (116) 95 I&O- Last 24 Hours up to 6 AM 03/24/19 05:59 Intake Total 1390 ml Output Total 2400 ml Balance -1010 ml Laboratory Data Labs 24H Laboratory Tests 2 03/23/19 11:44: Bedside Glucose (Misc Panel) 201H 03/23/19 17:08: Bedside Glucose (Misc Panel) 170H 03/23/19 20:51: Bedside Glucose (Misc Panel) 237H 03/24/19 07:51: Bedside Glucose (Misc Panel) 147H 03/24/19 08:08: Nucleated Red Blood Cells % (auto) 0.0, Anion Gap 7L, Glomerular Filtration Rate > 60.0, Calcium Level 8.8, Total Bilirubin 1.5H, Direct Bilirubin 0.5H, Aspartate Amino Transf (AST/SGOT) 83H, Alanine Aminotransferase (ALT/SGPT) 238H, Alkaline Phosphatase 349H, Total Protein 7.0, Albumin 2.9L, Albumin/Globulin Ratio 0.71L CBC/BMP Laboratory Tests 03/24/19 08:08 FSBS Laboratory Tests Test 03/23/19 11:44 03/23/19 17:08 03/23/19 20:51 03/24/19 07:51 Range/Units Bedside Glucose (Misc Panel) 201 170 237 147 83-110 MG/DL Microbiology Microbiology 03/21/19 Stool Occult Blood (SABINE) - Final, Complete 03/19/19 Stool Occult Blood (SABINE) - Final, Complete 03/18/19 Blood Culture - Final, Complete NO GROWTH AFTER 5 DAYS 03/18/19 Blood Culture - Final, Complete NO GROWTH AFTER 5 DAYS Discharge Medications Scheduled Apixaban (Eliquis) 5 Mg Tab, 5 MG PO BID, (Reported) Atorvastatin Calcium (Atorvastatin Calcium) 80 Mg Tablet, 80 MG PO QHS, (Reported) Calcium Carbonate/Vitamin D3 (Calcium 600 + Vit D 400 Softgl) 1 Each Capsule, 1 CAP PO DAILY, (Reported) Canagliflozin (Invokana) 100 Mg Tab, 100 MG PO DAILY, (Reported) Cetirizine HCl (Cetirizine HCl) 10 Mg Tab, 10 MG PO DAILY, (Reported) Cholecalciferol (Vitamin D3) (Vitamin D3) 1,000 Unit Tablet, 1,000 UNIT PO D AILY, (Reported) Dulaglutide (Trulicity) 0.75 Mg/0.5 Ml Inj, 1.5 MG SC QWEEK, (Reported) SUNDAYS Fluticasone Propion/Salmeterol (Advair Hfa 230-21 Mcg Inhaler) 1 Aer Aer, 2 PUFF INH BID, (Reported) Folic Acid (Folic Acid) 1 Mg Tablet, 1 MG PO DAILY, (Reported) Gabapentin (Gabapentin) 300 Mg Cap, 600 MG PO QHS, (Reported) Insulin Detemir (Levemir Flextouch) 100 Unit/Ml Inj, 15 UNIT SC QHS, (Reported) Lactobacillus Acidophilus (Probiotic) 1 Each Capsule, 1 CAP PO DAILY, (Reported) Lisinopril (Lisinopril) 10 Mg Tab, 20 MG PO QHS, (Reported) Metformin HCl (Metformin HCl ER) 500 Mg Tab.er.24h, 2,000 MG PO DAILY, (Reported) Methotrexate Sodium (Methotrexate) 2.5 Mg Tablet, 7.5 MG PO 1XWK, (Reported) Pantoprazole Sodium (Pantoprazole Sodium) 40 Mg Tab, 40 MG PO DAILY, (Reported) Prednisone (Prednisone) 2.5 Mg Tablet, 2.5 MG PO DAILY, (Reported) Pregabalin (Lyrica) 75 Mg Cap, 75 MG PO BID, (Reported) Ranitidine HCl (Ranitidine HCl) 150 Mg Tablet, 1 TAB PO QHS, (Reported) Verapamil HCl (Verapamil HCl) 40 Mg Tablet, 20 MG PO BID Vit C/E/Zn/Coppr/Lutein/Zeaxan (Vision Formula 2 Softgel) 1 Tab Tab, 1 TAB PO DAILY, (Reported) Scheduled PRN Albuterol Sulfate (Proair Hfa) 108 Mcg/Act Aer, 2 PUFF INH PRN PRN for WHEEZING, (Reported) Diclofenac Sodium (Diclofenac Sodium) 1% 100GM Gel..gram., 2 GM TOP BID PRN for PAIN, (Reported) Apply to area of pain Fluticasone Propionate (Flonase Allergy Relief) 50 Mcg/Act Spr, 1 SPRAY NARES BID PRN for NASAL CONGESTION, (Reported) Ipratropium/Albuterol Sulfate (Combivent Respimat 20-100 Mcg) 1 Aer Aer, 1 PUFF INH QID PRN for SOB/WHEEZING, (Reported) Tramadol HCl (Tramadol HCl) 50 Mg Tablet, 50 MG PO Q6HP PRN for MODERATE PAIN (PS 5-7) Allergies Coded Allergies: leflunomide (Verified Allergy, Intermediate, ITCHY AND SWELLING, 03/15/19) buspirone (Verified Adverse Reaction, Intermediate, AGITIATION, 03/15/19) ANABEL LOYA MD Mar 24, 2019 10:35
== END 2019-03-24 12:06 | disposition home or self-care (01) | DRG 85 ==
LOC: M ED 13:12 → M ED INP 13:13 → OBSVTOIN 14:36 → M ED 19:47 → M MSPAV 19:49 → M PCU 03-17 15:27
PROVIDERS: ADMIT Internal Medicine; ATTEND Student in an Organized Health Care Education/Training Program
PROC: 0FC98ZZ Extirpation of Matter from Common Bile Duct, Via Natural or Artificial Opening Endoscopic (ICD-10-PCS; principal; 2019-03-19 15:00)
DX: S06.9X1A Unspecified intracranial injury with loss of consciousness of 30 minutes or less, initial encounter (principal); K72.00 Acute and subacute hepatic failure without coma; N17.9 Acute kidney failure, unspecified; K62.5 Hemorrhage of anus and rectum; R74.0 Nonspecific elevation of levels of transaminase and lactic acid dehydrogenase [LDH]; K80.70 Calculus of gallbladder and bile duct without cholecystitis without obstruction; I48.91 Unspecified atrial fibrillation; R31.0 Gross hematuria; E11.9 Type 2 diabetes mellitus without complications; M06.9 Rheumatoid arthritis, unspecified; J45.909 Unspecified asthma, uncomplicated; I10 Essential (primary) hypertension; Z79.899 Other long term (current) drug therapy; Z88.8 Allergy status to other drugs, medicaments and biological substances; M19.90 Unspecified osteoarthritis, unspecified site; Z87.891 Personal history of nicotine dependence; M48.062 Spinal stenosis, lumbar region with neurogenic claudication; W18.30XA Fall on same level, unspecified, initial encounter; Y92.009 Unspecified place in unspecified non-institutional (private) residence as the place of occurrence of the external cause

== ENCOUNTER → 2019-04-01 | Outpatient (REF) | payer MEDICARE, OTHER ==
[~2019-04-01] MED LIST changes: +ATOR80TA59 PO; +CALCCAP4 PO; +DICL1GEL3 TOP; +FOLI1TAB11 PO; +METF-791 PO; +METH2.5T48 PO; +PRED25TA PO; +PROBCAP14 PO; +RANI150T14 PO; +VITA-144 PO
[2019-04-01 17:44] LABS: APPEARANCE, URINE CLEAR (CLEAR); BACTERIA, URINE AUTO NEGATIVE (NEGATIVE); BILIRUBIN, URINE AUTO NEGATIVE (NEGATIVE); BLOOD, URINE BLOOD NEGATIVE (NEGATIVE); COLOR, URINE YELLOW (YELLOW); GLUCOSE, URINE (UA) AUTO 3+ mg/dL (NEGATIVE); KETONE, URINE AUTO NEGATIVE (NEGATIVE); LEUKOCYTE ESTERASE, URINE AUTO NEGATIVE (NEGATIVE); MUCUS, URINE SMALL (NEGATIVE); NITRITE, URINE AUTO NEGATIVE (NEGATIVE); PROTEIN, URINE AUTO NEGATIVE (NEGATIVE); RBC, URINE AUTO 1 /HPF (0-3); SPECIFIC GRAVITY URINE AUTO 1.015 (1.002-1.035); SQUAMOUS EPITHELIAL CELL UR AU 0 /HPF (0-6); UROBILINOGEN, URINE AUTO 0.2 mg/dL (0.0-2.0); WBC, URINE AUTO 2 /HPF (0-3)
== END ==
LOC: M SMT 16:59
PROVIDERS: ATTEND Nurse Practitioner Women's Health
DX: R31.0 Gross hematuria (principal)

== ENCOUNTER 2019-05-04 07:14 | Day surgery (SDC) | payer MEDICARE, OTHER ==
[~2019-05-04] VITALS: Ht 167.6 cm; Wt 94.8 kg
[~2019-05-04 07:14] MED LIST changes: +LIDOCAINE 1% MDV 20ML VIAL SQ PRN; +LIDOCAINE 2% INJ 100 MG/5 ML SDV (FOR ANES.) As Ordered ONE; +LR 1,000 ML IV ONE; +ONDANSETRON 4MG/2ML VIAL (J2405) As Ordered ONE; +PROPOFOL 200 MG/20 ML VIAL As Ordered ONE; +ROCURONIUM BROMIDE 50 MG/5 ML VIAL As Ordered ONE; +ceFAZolin SOD 1 GM in D5W MINI-BAG PLUS 50 ML IV ONE; +dexameTHASONE 4 MG/ML 1ML VIAL (J1100) As Ordered ONE
[2019-05-04] MEDS ORDERED: BUPIVACAINE/EPIN 0.25% 30 ML VIAL As Ordered ONE (08:36)
[2019-05-04] MEDS ORDERED: fentaNYL 250 MCG/5 ML INJECTION (J3010) As Ordered ONE (08:37)
[2019-05-04] MEDS ORDERED: HYDROCORTISONE 100 MG/2 ML VIAL (J1720 PER 1) As Ordered ONE (08:55)
[2019-05-04] MEDS ORDERED: ROCURONIUM BROMIDE 50 MG/5 ML VIAL As Ordered ONE (10:07)
[2019-05-04] MEDS ORDERED: SUGAMMADEX SODIUM 500 MG/5 ML VIAL (BRIDION) As Ordered ONE (10:09)
--- NOTE | 2019-05-04 10:50 | RO ---
DATE OF PROCEDURE: 05/04/2019 PREOPERATIVE DIAGNOSIS: History of cholecystitis. POSTOPERATIVE DIAGNOSIS: History of cholecystitis. PROCEDURE: Laparoscopic cholecystectomy. SURGEON: Dr. Sharif Berman. 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 ESTIMATED BLOOD LOSS: Minimal. FLUIDS: Crystalloid. DESCRIPTION OF PROCEDURE: The patient was brought to the operating room and was given general anesthesia. After adequate anesthesia and preoperative antibiotics were given, the patient was prepped and draped in usual sterile fashion. Next a left upper quadrant 5 mm trocar was placed after the abdomen was insufflated to 15 mm of pressure. The patient had previous ventral hernia repair and had palpable mesh in the area surrounding the umbilicus and thus this is why a left subcostal approach was taken. On entrance into the abdominal cavity, no significant adhesions were appreciated in the periumbilical area and thus the 10 mm trocar was placed just below the mesh in the infraumbilical area and two left upper quadrant 5 mm trocars were placed. The patient was placed in a head-up, left-side down position and the gallbladder was seen grasped, but it was very tightly distended. Thus an aspirating needle was used to decompress the gallbladder. The gallbladder was retracted superiorly. Then the peritoneum overlying the neck of the gallbladder was taken down with hook cautery some blunt dissection as well as the peanut dissection was used on the lateral aspect and on the medial aspect, it was relatively a low insertion of the cystic duct onto the common bile duct and thus I did need to follow this relatively low and eventually during this dissection the cystic artery was well visualize. It could be seen pulsating and going up onto the gallbladder itself. Thus I clipped it at the level the gallbladder just above the cystic duct node and then further dissection the gallbladder was performed at this time. I continued dissection and this area provided good exposure to the back wall of the midportion of the gallbladder and eventually after getting through some relatively thickened fibrotic tissue behind the neck of the gallbladder, a good window was created. Once this was created and care was taken to make sure that the cystic duct was only present and this was followed up onto the cystic plate itself, the neck of the gallbladder eventually tightened down to a nice cystic duct and this was clipped proximally and distally and transected. Then the gallbladder was taken from the gallbladder bed using electrocautery. In this fibrotic tissue midway up the gallbladder, there was a small artery that was going to the gallbladder itself. This was clipped after I first transected with electrocautery and had some oozing from that and was just clipped. Good hemostasis was achieved. The gallbladder was removed from the gallbladder bed, placed in an EndoCatch bag, brought out through the umbilicus. The right upper quadrant was copiously irrigated till clear and all trocars removed under direct visualization. 0 Vicryl was used to close the fascia at the umbilicus and all incisions were closed with #4-0 Vicryl. Steri-Strips and dry sterile dressing was applied. The patient was awakened, extubated, brought to the recovery room awake, alert, hemodynamically stable. Sponge and needle counts correct times two.
[2019-05-04] MEDS ORDERED: LR 1,000 ML IV SCH ×2 (11:00)
[2019-05-04] MEDS: oxyCODONE 5MG TAB PO PRN ×2 (11:00→11:30)
[2019-05-04] MEDS ORDERED: predniSONE 2.5 MG TAB PO ONE (11:00)
[2019-05-04] MEDS ORDERED: ONDANSETRON 4MG/2ML VIAL (J2405) IV PRN (11:00)
[2019-05-04] MEDS ORDERED: fentaNYL 100 MCG/2 ML INJECTION (J3010) IV PRN (11:00)
[2019-05-04] MEDS ORDERED: NORCO, ANEXSIA 5/325MG TABLET (HYDROcodone/ACETAMINOPHEN) PO PRN (11:00)
[2019-05-04 13:50] VITALS: BP 144/97
== END 2019-05-04 14:10 | disposition home or self-care (01) ==
LOC: M SDC 07:14
PROVIDERS: ATTEND Surgery
DX: K80.10 Calculus of gallbladder with chronic cholecystitis without obstruction (principal); I10 Essential (primary) hypertension; I48.91 Unspecified atrial fibrillation; E78.5 Hyperlipidemia, unspecified; E10.9 Type 1 diabetes mellitus without complications; Z79.4 Long term (current) use of insulin; K21.9 Gastro-esophageal reflux disease without esophagitis; G47.30 Sleep apnea, unspecified; Z88.8 Allergy status to other drugs, medicaments and biological substances; Z79.01 Long term (current) use of anticoagulants; Z79.899 Other long term (current) drug therapy; J44.9 Chronic obstructive pulmonary disease, unspecified
CPT/HCPCS: 47562; 88304; J0690; J1720; J2405; J3010

== ENCOUNTER → 2019-08-05 | Outpatient (REF) | payer MEDICARE, OTHER ==
[~2019-08-05] MED LIST changes: -LIDOCAINE 1% MDV 20ML VIAL SQ PRN; -LIDOCAINE 2% INJ 100 MG/5 ML SDV (FOR ANES.) As Ordered ONE; -LR 1,000 ML IV ONE; -ONDANSETRON 4MG/2ML VIAL (J2405) As Ordered ONE; -PROPOFOL 200 MG/20 ML VIAL As Ordered ONE; -ROCURONIUM BROMIDE 50 MG/5 ML VIAL As Ordered ONE; -ceFAZolin SOD 1 GM in D5W MINI-BAG PLUS 50 ML IV ONE; -dexameTHASONE 4 MG/ML 1ML VIAL (J1100) As Ordered ONE
[2019-08-05 12:45] LABS: BASO # 0.1 10^3/uL (0.0-0.2); BASO % 0.9 % (0.0-1.0); EOS # 0.1 10^3/uL (0.0-0.5); EOS % 1.3 % (0.0-3.0); LYMPH # 1.5 10^3/uL (1.5-5.0); LYMPH % 21.7 % (24.0-44.0); MEAN CORPUSCULAR HEMOGLOBIN 29.8 pg (27.0-33.0); MEAN CORPUSCULAR HGB CONC 31.7 g/dl (32.0-36.5); MONO # 0.8 10^3/uL (0.0-0.8); MONO % 11.2 % (0.0-5.0); NEUTROPHILS # 4.2 10^3/uL (1.5-8.5); PLATELET COUNT, AUTOMATED 226 10^3/uL (150-450); RED BLOOD COUNT 4.36 10^6/uL (4.30-6.10); WHITE BLOOD COUNT 6.7 10^3/uL (4.0-10.0)
[2019-08-05 12:55] LABS: ALBUMIN 4.1 GM/DL (3.2-5.2); ALT/SGPT 33 U/L (12-78); BILIRUBIN,TOTAL 1.5 MG/DL (0.2-1.0); BLOOD UREA NITROGEN 16 MG/DL (7-18); CALCIUM LEVEL 9.2 MG/DL (8.8-10.2); CARBON DIOXIDE LEVEL 30 MEQ/L (21-32); CHLORIDE LEVEL 102 MEQ/L (98-107); CREATININE FOR GFR 0.89 MG/DL (0.70-1.30); GLOMERULAR FILTRATION RATE > 60.0 (>35); GLUCOSE, FASTING 194 MG/DL (70-100); POTASSIUM SERUM 4.2 MEQ/L (3.5-5.1); SODIUM LEVEL 137 MEQ/L (136-145)
[2019-08-05 13:09] LABS: ERYTHROCYTE SEDIMENTATION RATE 14 mm/hr (0-20)
== END ==
LOC: M LABDRAW1 10:46
PROVIDERS: ATTEND Internal Medicine
DX: M05.9 Rheumatoid arthritis with rheumatoid factor, unspecified (principal)

== ENCOUNTER → 2019-08-24 | Outpatient (REF) | payer MEDICARE, OTHER ==
[2019-08-24 15:32] LABS: PLATELET COUNT, AUTOMATED 228 10^3/uL (150-450)
[2019-08-24 15:42] LABS: INR 1.21
[2019-08-24 15:43] LABS: PARTIAL THROMBOPLASTIN TIME 33.3 SECONDS (25.0-38.4)
== END ==
LOC: M LABDRAW1 14:26
PROVIDERS: ATTEND Physician Assistant
DX: Z01.812 Encounter for preprocedural laboratory examination (principal); D69.1 Qualitative platelet defects; M47.27 Other spondylosis with radiculopathy, lumbosacral region

== ENCOUNTER → 2019-11-18 | Outpatient (CLI) | payer MEDICARE, OTHER ==
[~2019-11-18] MED LIST changes: -ALL10TAB29 PO; +CETI-24 PO; -METF-791 PO; +METF-838 PO; +PANT40TA29 PO; -PANT40TA3 PO
[2019-11-18 11:33] LABS: BASO # 0.1 10^3/uL (0.0-0.2); BASO % 0.8 % (0.0-1.0); EOS # 0.1 10^3/uL (0.0-0.5); EOS % 1.7 % (0.0-3.0); HEMATOCRIT 39.4 % (42.0-52.0); HEMOGLOBIN 12.6 g/dl (13.5-17.5); LYMPH # 1.4 10^3/uL (1.5-5.0); LYMPH % 19.9 % (24.0-44.0); MONO % 14.3 % (0.0-5.0); NEUTROPHILS # 4.5 10^3/uL (1.5-8.5); NEUTROPHILS % 61.8 % (36.0-66.0); PLATELET COUNT, AUTOMATED 197 10^3/uL (150-450); RED BLOOD COUNT 4.06 10^6/uL (4.30-6.10); WHITE BLOOD COUNT 7.2 10^3/uL (4.0-10.0)
[2019-11-18 11:35] LABS: C REACTIVE PROTEIN QUANTITATIV < 0.30 MG/DL (0.00-0.30)
[2019-11-18 12:05] LABS: ERYTHROCYTE SEDIMENTATION RATE 8 mm/hr (0-20)
== END ==
LOC: M PLALAB 09:23
PROVIDERS: ATTEND Internal Medicine Rheumatology
DX: M05.79 Rheumatoid arthritis with rheumatoid factor of multiple sites without organ or systems involvement (principal)
CPT/HCPCS: 36415; 84450; 85025; 85652; 86140; G0463

== ENCOUNTER → 2020-03-15 | Outpatient (CLI) | payer MEDICARE, OTHER | LOC: M LABSMTC 09:40 | PROVIDERS: ATTEND Physical Medicine & Rehabilitation | DX: Z01.812 Encounter for preprocedural laboratory examination (principal); Z20.828 Contact with and (suspected) exposure to other viral communicable diseases ==

== ENCOUNTER → 2020-04-13 | Outpatient (CLI) | payer MEDICARE, OTHER ==
[2020-04-13 13:37] LABS: COLLAGEN EPINEPHRINE 100 SECONDS (74-162); INR 0.97; PROTHROMBIN TIME 13.1 SECONDS (12.5-14.3)
[2020-04-13 13:38] LABS: PARTIAL THROMBOPLASTIN TIME 28.4 SECONDS (24.2-38.5)
== END ==
LOC: M PLALAB 11:00
PROVIDERS: ATTEND Physician Assistant
DX: M48.061 Spinal stenosis, lumbar region without neurogenic claudication (principal); Z79.01 Long term (current) use of anticoagulants

== ENCOUNTER → 2020-05-04 | Outpatient (REF) | payer MEDICARE, OTHER ==
[~2020-05-04] MED LIST changes: +GABA-282 PO; -GABA-843 PO
[2020-05-04 13:52] LABS: BASO # 0.1 10^3/uL (0.0-0.2); EOS # 0.1 10^3/uL (0.0-0.5); EOS % 1.5 % (0.0-3.0); HEMATOCRIT 43.3 % (42.0-52.0); HEMOGLOBIN 13.6 g/dl (13.5-17.5); LYMPH # 1.6 10^3/uL (1.5-5.0); LYMPH % 22.4 % (24.0-44.0); MEAN CORPUSCULAR HEMOGLOBIN 30.8 pg (27.0-33.0); MEAN CORPUSCULAR HGB CONC 31.4 g/dl (32.0-36.5); MONO % 13.6 % (0.0-5.0); NEUTROPHILS # 4.2 10^3/uL (1.5-8.5); NEUTROPHILS % 58.4 % (36.0-66.0); PLATELET COUNT, AUTOMATED 206 10^3/uL (150-450); RED BLOOD COUNT 4.42 10^6/uL (4.30-6.10); WHITE BLOOD COUNT 7.2 10^3/uL (4.0-10.0)
[2020-05-04 14:15] LABS: ERYTHROCYTE SEDIMENTATION RATE 7 mm/hr (0-20)
[2020-05-04 15:43] LABS: ALBUMIN 4.2 GM/DL (3.2-5.2); ALT/SGPT 34 U/L (12-78); BILIRUBIN,TOTAL 2.1 MG/DL (0.2-1.0); BLOOD UREA NITROGEN 17 MG/DL (7-18); CALCIUM LEVEL 9.1 MG/DL (8.8-10.2); CARBON DIOXIDE LEVEL 24 MEQ/L (21-32); CHLORIDE LEVEL 107 MEQ/L (98-107); CREATININE FOR GFR 0.91 MG/DL (0.70-1.30); GLOMERULAR FILTRATION RATE > 60.0 (>35); GLUCOSE, FASTING 131 MG/DL (70-100); POTASSIUM SERUM 3.7 MEQ/L (3.5-5.1); SODIUM LEVEL 140 MEQ/L (136-145); TOTAL PROTEIN 7.2 GM/DL (6.4-8.2)
== END ==
LOC: M SFHCRHEU 08:29
PROVIDERS: ATTEND Internal Medicine
DX: M06.09 Rheumatoid arthritis without rheumatoid factor, multiple sites (principal)
CPT/HCPCS: 80053; 85025; 85652; 86140; G0463

== ENCOUNTER → 2020-05-05 | Outpatient (REF) | payer MEDICARE, OTHER ==
[~2020-05-05] MED LIST changes: -GABA-282 PO; +GABA-843 PO
[2020-05-05 16:44] LABS: APPEARANCE, URINE HAZY (CLEAR); BACTERIA, URINE AUTO NEGATIVE (NEGATIVE); BILIRUBIN, URINE AUTO NEGATIVE (NEGATIVE); BLOOD, URINE BLOOD NEGATIVE (NEGATIVE); CALCIUM OXALATE CRYSTALS MODERATE; COLOR, URINE YELLOW (YELLOW); GLUCOSE, URINE (UA) AUTO 3+ mg/dL (NEGATIVE); KETONE, URINE AUTO NEGATIVE (NEGATIVE); LEUKOCYTE ESTERASE, URINE AUTO NEGATIVE (NEGATIVE); MUCUS, URINE SMALL (NEGATIVE); NITRITE, URINE AUTO NEGATIVE (NEGATIVE); PROTEIN, URINE AUTO NEGATIVE (NEGATIVE); RBC, URINE AUTO 0 /HPF (0-3); SPECIFIC GRAVITY URINE AUTO 1.031 (1.002-1.035); SQUAMOUS EPITHELIAL CELL UR AU 1 /HPF (0-6); UROBILINOGEN, URINE AUTO 0.2 mg/dL (0.0-2.0); WBC, URINE AUTO 0 /HPF (0-3)
== END ==
LOC: M SMT 15:31
PROVIDERS: ATTEND Nurse Practitioner Women's Health
DX: R31.9 Hematuria, unspecified (principal)

== ENCOUNTER → 2020-07-31 | Outpatient (REF) | payer MEDICARE, OTHER ==
[~2020-07-31] MED LIST changes: +GABA-282 PO; -GABA-843 PO; +LISI10TA22 PO; -LISI10TA4 PO
[2020-07-31 13:55] LABS: BASO # 0.1 10^3/uL (0.0-0.2); EOS # 0.1 10^3/uL (0.0-0.5); EOS % 1.7 % (0.0-3.0); LYMPH # 1.5 10^3/uL (1.5-5.0); LYMPH % 26.2 % (24.0-44.0); MEAN CORPUSCULAR HEMOGLOBIN 30.3 pg (27.0-33.0); MEAN CORPUSCULAR HGB CONC 30.8 g/dl (32.0-36.5); MEAN CORPUSCULAR VOLUME 98.5 fl (80.0-96.0); MONO # 0.8 10^3/uL (0.0-0.8); MONO % 13.3 % (2.0-8.0); NEUTROPHILS # 3.2 10^3/uL (1.5-8.5); NEUTROPHILS % 54.7 % (36.0-66.0); PLATELET COUNT, AUTOMATED 204 10^3/uL (150-450); RED BLOOD COUNT 3.96 10^6/uL (4.30-6.10); WHITE BLOOD COUNT 5.9 10^3/uL (4.0-10.0)
[2020-07-31 14:19] LABS: ALBUMIN 3.9 GM/DL (3.2-5.2); ALT/SGPT 29 U/L (12-78); BILIRUBIN,TOTAL 1.7 MG/DL (0.2-1.0); BLOOD UREA NITROGEN 16 MG/DL (7-18); CALCIUM LEVEL 8.6 MG/DL (8.8-10.2); CARBON DIOXIDE LEVEL 31 MEQ/L (21-32); CHLORIDE LEVEL 107 MEQ/L (98-107); CREATININE FOR GFR 0.93 MG/DL (0.70-1.30); GLOMERULAR FILTRATION RATE > 60.0 (>35); GLUCOSE, FASTING 97 MG/DL (70-100); POTASSIUM SERUM 3.9 MEQ/L (3.5-5.1); SODIUM LEVEL 141 MEQ/L (136-145); TOTAL PROTEIN 6.4 GM/DL (6.4-8.2)
[2020-07-31 14:20] LABS: ERYTHROCYTE SEDIMENTATION RATE 10 mm/hr (0-20)
== END ==
LOC: M PLALAB 10:35
PROVIDERS: ATTEND Internal Medicine
DX: M06.09 Rheumatoid arthritis without rheumatoid factor, multiple sites (principal)

== ENCOUNTER → 2020-09-25 | Outpatient (CLI) | payer MEDICARE, OTHER ==
--- NOTE | 2020-09-25 09:59 | REPPI ---
INDICATION: PERSISTENT ASTHMA COMPARISON: 04/03/2018. TECHNIQUE: PA/Lateral FINDINGS: Lungs: Clear, no infiltrate. Heart: Normal in size. Mediastinum: There is calcification and tortuosity of the thoracic aorta. The mediastinal silhouette is unchanged. Pleural angles: Unremarkable.. Bones and soft tissues: There has been prior resection of the distal right clavicle. There are mild degenerative changes of the spine without compression deformity. IMPRESSION: No acute pulmonary disease. <Electronically signed by Wilfredo Arce > 09/25/20 0923
== END ==
LOC: M PLAIMG 09:25
PROVIDERS: ATTEND Internal Medicine Pulmonary Disease
DX: J45.40 Moderate persistent asthma, uncomplicated (principal); I70.0 Atherosclerosis of aorta

== ENCOUNTER → 2020-11-08 | Outpatient (REF) | payer MEDICARE, OTHER | LOC: M LAB REF 16:10 | PROVIDERS: ATTEND Nurse Practitioner Adult Health | DX: Z79.899 Other long term (current) drug therapy (principal) ==

== ENCOUNTER → 2021-01-02 | Outpatient (CLI) | payer MEDICARE, OTHER ==
[2021-01-02 13:25] LABS: BASO # 0.1 10^3/uL (0.0-0.2); BASO % 1.1 % (0.0-1.0); EOS # 0.1 10^3/uL (0.0-0.5); EOS % 1.5 % (0.0-3.0); HEMATOCRIT 40.7 % (42.0-52.0); LYMPH # 1.4 10^3/uL (1.5-5.0); LYMPH % 19.4 % (24.0-44.0); MEAN CORPUSCULAR HGB CONC 31.9 g/dl (32.0-36.5); MEAN CORPUSCULAR VOLUME 97.1 fl (80.0-96.0); MONO # 0.8 10^3/uL (0.0-0.8); MONO % 11.3 % (2.0-8.0); NEUTROPHILS # 4.6 10^3/uL (1.5-8.5); NEUTROPHILS % 63.9 % (36.0-66.0); PLATELET COUNT, AUTOMATED 207 10^3/uL (150-450); RED BLOOD COUNT 4.19 10^6/uL (4.30-6.10); WHITE BLOOD COUNT 7.2 10^3/uL (4.0-10.0)
[2021-01-02 13:50] LABS: ALBUMIN 4.1 GM/DL (3.2-5.2); ALT/SGPT 27 U/L (12-78); BLOOD UREA NITROGEN 13 MG/DL (7-18); CALCIUM LEVEL 8.7 MG/DL (8.8-10.2); CARBON DIOXIDE LEVEL 29 MEQ/L (21-32); CHLORIDE LEVEL 106 MEQ/L (98-107); CREATININE FOR GFR 0.79 MG/DL (0.70-1.30); GLOMERULAR FILTRATION RATE > 60.0 (>35); GLUCOSE, FASTING 79 MG/DL (70-100); POTASSIUM SERUM 3.9 MEQ/L (3.5-5.1); SODIUM LEVEL 140 MEQ/L (136-145); TOTAL PROTEIN 6.6 GM/DL (6.4-8.2)
[2021-01-02 14:03] LABS: ERYTHROCYTE SEDIMENTATION RATE 8 mm/hr (0-20)
== END ==
LOC: M LAB 11:42
PROVIDERS: ATTEND Internal Medicine Rheumatology
DX: M06.09 Rheumatoid arthritis without rheumatoid factor, multiple sites (principal); Z79.899 Other long term (current) drug therapy

== ENCOUNTER → 2021-04-20 | Outpatient (CLI) | payer MEDICARE, OTHER ==
[2021-04-20 14:00] LABS: PLATELET COUNT, AUTOMATED 199 10^3/uL (150-450)
[2021-04-20 14:19] LABS: INR 1.1; PROTHROMBIN TIME 14.6 SECONDS (12.7-14.5)
[2021-04-20 14:20] LABS: PARTIAL THROMBOPLASTIN TIME 32.2 SECONDS (25.9-37.0)
== END ==
LOC: M LAB 13:14
PROVIDERS: ATTEND Physician Assistant
DX: M48.061 Spinal stenosis, lumbar region without neurogenic claudication (principal); Z79.899 Other long term (current) drug therapy

== ENCOUNTER → 2021-05-15 | Outpatient (REF) | payer MEDICARE, OTHER ==
[2021-05-15 12:00] LABS: HEMATOCRIT 39.7 % (42.0-52.0); HEMOGLOBIN 12.9 g/dl (13.5-17.5); MEAN CORPUSCULAR HGB CONC 32.5 g/dl (32.0-36.5); MEAN CORPUSCULAR VOLUME 98.5 fl (80.0-96.0); PLATELET COUNT, AUTOMATED 203 10^3/uL (150-450); RED BLOOD COUNT 4.03 10^6/uL (4.30-6.10); WHITE BLOOD COUNT 8.6 10^3/uL (4.0-10.0)
[2021-05-15 12:29] LABS: ALBUMIN 3.8 GM/DL (3.2-5.2); ALT/SGPT 23 U/L (12-78); BILIRUBIN,TOTAL 1.2 MG/DL (0.2-1.0); BLOOD UREA NITROGEN 15 MG/DL (7-18); CALCIUM LEVEL 9.2 MG/DL (8.8-10.2); CARBON DIOXIDE LEVEL 27 MEQ/L (21-32); CHLORIDE LEVEL 107 MEQ/L (98-107); CREATININE FOR GFR 0.87 MG/DL (0.70-1.30); GLOMERULAR FILTRATION RATE > 60.0 (>35); GLUCOSE, FASTING 192 MG/DL (70-100); POTASSIUM SERUM 3.3 MEQ/L (3.5-5.1); SODIUM LEVEL 141 MEQ/L (136-145); TOTAL PROTEIN 6.4 GM/DL (6.4-8.2)
[2021-05-15 12:32] LABS: ATYPICAL LYMPH 1 % (0-5); BASOPHILS 1 % (0-1); EOSINOPHILS 2 % (0-3); LYMPHOCYTES 13 % (16-44); MONOCYTES 12 % (0-5); NEUTROPHILS 69 % (28-66); OVALOCYTES 1+; PLATELET ESTIMATE NORMAL (NORMAL)
[2021-05-15 12:46] LABS: ERYTHROCYTE SEDIMENTATION RATE 9 mm/hr (0-20)
== END ==
LOC: M SFHCRHEU 09:07
PROVIDERS: ATTEND Internal Medicine Rheumatology
DX: M06.09 Rheumatoid arthritis without rheumatoid factor, multiple sites (principal); Z79.899 Other long term (current) drug therapy

== ENCOUNTER → 2021-09-13 | Outpatient (REF) | payer MEDICARE, OTHER ==
[2021-09-13 13:00] LABS: HEMATOCRIT 39.6 % (42.0-52.0); HEMOGLOBIN 12.5 g/dl (13.5-17.5); MEAN CORPUSCULAR HEMOGLOBIN 31.4 pg (27.0-33.0); MEAN CORPUSCULAR HGB CONC 31.6 g/dl (32.0-36.5); MEAN CORPUSCULAR VOLUME 99.5 fl (80.0-96.0); PLATELET COUNT, AUTOMATED 206 10^3/uL (150-450); RED BLOOD COUNT 3.98 10^6/uL (4.30-6.10); WHITE BLOOD COUNT 9.6 10^3/uL (4.0-10.0)
[2021-09-13 13:22] LABS: ALBUMIN 4.2 GM/DL (3.2-5.2); ALT/SGPT 30 U/L (12-78); BILIRUBIN,TOTAL 1.7 MG/DL (0.2-1.0); BLOOD UREA NITROGEN 12 MG/DL (7-18); CALCIUM LEVEL 9.1 MG/DL (8.8-10.2); CARBON DIOXIDE LEVEL 26 MEQ/L (21-32); CHLORIDE LEVEL 105 MEQ/L (98-107); CREATININE FOR GFR 0.89 MG/DL (0.70-1.30); GLOMERULAR FILTRATION RATE > 60.0 (>35); GLUCOSE, FASTING 175 MG/DL (70-100); SODIUM LEVEL 140 MEQ/L (136-145); TOTAL PROTEIN 6.6 GM/DL (6.4-8.2)
[2021-09-13 15:14] LABS: ATYPICAL LYMPH 1 % (0-5); BASOPHILS 1 % (0-1); EOSINOPHILS 3 % (0-3); LYMPHOCYTES 12 % (16-44); MONOCYTES 12 % (0-5); MYELOCYTES 3 % (0-0); NEUTROPHILS 67 % (28-66)
[2021-09-13 15:15] LABS: OVALOCYTES 1+; PLATELET ESTIMATE NORMAL (NORMAL)
[2021-09-13 15:45] LABS: ERYTHROCYTE SEDIMENTATION RATE 1 mm/hr (0-20)
== END ==
LOC: M SFHCRHEU 09:07
PROVIDERS: ATTEND Internal Medicine Rheumatology
DX: M06.09 Rheumatoid arthritis without rheumatoid factor, multiple sites (principal); M15.0 Primary generalized (osteo)arthritis; R17 Unspecified jaundice; Z79.899 Other long term (current) drug therapy

== ENCOUNTER → 2022-01-09 | Outpatient (REF) | payer MEDICARE, OTHER ==
[2022-01-09 12:51] LABS: HEMATOCRIT 43.4 % (42.0-52.0); HEMOGLOBIN 14.1 g/dl (13.5-17.5); MEAN CORPUSCULAR HEMOGLOBIN 32.6 pg (27.0-33.0); MEAN CORPUSCULAR HGB CONC 32.5 g/dl (32.0-36.5); MEAN CORPUSCULAR VOLUME 100.2 fl (80.0-96.0); PLATELET COUNT, AUTOMATED 234 10^3/uL (150-450); RED BLOOD COUNT 4.33 10^6/uL (4.30-6.10); WHITE BLOOD COUNT 10.9 10^3/uL (4.0-10.0)
[2022-01-09 13:19] LABS: ALBUMIN 4.2 GM/DL (3.2-5.2); ALT/SGPT 31 U/L (12-78); BILIRUBIN,TOTAL 1.9 MG/DL (0.2-1.0); BLOOD UREA NITROGEN 17 MG/DL (7-18); CARBON DIOXIDE LEVEL 30 MEQ/L (21-32); CHLORIDE LEVEL 102 MEQ/L (98-107); CREATININE FOR GFR 0.96 MG/DL (0.70-1.30); GLOMERULAR FILTRATION RATE > 60.0 (>35); GLUCOSE, FASTING 96 MG/DL (70-100); POTASSIUM SERUM 3.9 MEQ/L (3.5-5.1); SODIUM LEVEL 137 MEQ/L (136-145)
[2022-01-09 13:42] LABS: ERYTHROCYTE SEDIMENTATION RATE 9 mm/hr (0-20)
[2022-01-09 14:07] LABS: ANISOCYTOSIS 1+; BASOPHILS 1 % (0-1); EOSINOPHILS 1 % (0-3); LYMPHOCYTES 17 % (16-44); METAMYELOCYTES 3 % (0-0); MONOCYTES 9 % (0-5); MYELOCYTES 3 % (0-0); NEUTROPHILS 65 % (28-66); OVALOCYTES 1+; PLATELET ESTIMATE NORMAL (NORMAL)
== END ==
LOC: M SFHCRHEU 07:51
PROVIDERS: ATTEND Internal Medicine Rheumatology
DX: M06.09 Rheumatoid arthritis without rheumatoid factor, multiple sites (principal); M15.0 Primary generalized (osteo)arthritis; R17 Unspecified jaundice; Z79.899 Other long term (current) drug therapy

== ENCOUNTER → 2022-05-08 | Outpatient (REF) | payer MEDICARE, OTHER ==
[2022-05-08 13:05] LABS: HEMATOCRIT 41.3 % (42.0-52.0); HEMOGLOBIN 13.1 g/dl (13.5-17.5); MEAN CORPUSCULAR HEMOGLOBIN 31.8 pg (27.0-33.0); MEAN CORPUSCULAR HGB CONC 31.7 g/dl (32.0-36.5); MEAN CORPUSCULAR VOLUME 100.2 fl (80.0-96.0); PLATELET COUNT, AUTOMATED 205 10^3/uL (150-450); RED BLOOD COUNT 4.12 10^6/uL (4.30-6.10); WHITE BLOOD COUNT 14.6 10^3/uL (4.0-10.0)
[2022-05-08 13:47] LABS: ATYPICAL LYMPH 2 % (0-5); BASOPHILS 4 % (0-1); LYMPHOCYTES 18 % (16-44); METAMYELOCYTES 2 % (0-0); MONOCYTES 8 % (0-5); MYELOCYTES 6 % (0-0); NEUTROPHILS 57 % (28-66)
[2022-05-08 13:48] LABS: PLATELET ESTIMATE NORMAL (NORMAL)
[2022-05-08 14:39] LABS: ALBUMIN 4.1 G/DL (3.2-5.2); ALKALINE PHOSPHATASE 74 U/L (46-116); ALT/SGPT 23 U/L (7.0-40); AST/SGOT 17 U/L (<34); BILIRUBIN,TOTAL 1.4 MG/DL (0.3-1.2); BLOOD UREA NITROGEN 20 MG/DL (9-23); CALCIUM LEVEL 8.9 MG/DL (8.3-10.6); CARBON DIOXIDE LEVEL 28 MMOL/L (20-31); CHLORIDE LEVEL 104 MMOL/L (98-107); CREATININE FOR GFR 0.98 MG/DL (0.70-1.30); GLOMERULAR FILTRATION RATE > 60.0 (>35); GLUCOSE, FASTING 107 MG/DL (74-106); POTASSIUM SERUM 4.4 MMOL/L (3.5-5.1); SODIUM LEVEL 141 MMOL/L (136-145); TOTAL PROTEIN 6.7 G/DL (5.7-8.2)
[2022-05-08 17:13] LABS: ERYTHROCYTE SEDIMENTATION RATE 6 mm/hr (0-20)
== END ==
LOC: M SFHCRHEU 07:58
PROVIDERS: ATTEND Internal Medicine Rheumatology
DX: M06.09 Rheumatoid arthritis without rheumatoid factor, multiple sites (principal); M15.0 Primary generalized (osteo)arthritis; R17 Unspecified jaundice; Z79.899 Other long term (current) drug therapy

== ENCOUNTER → 2022-07-04 | Outpatient (CLI) | payer MEDICARE, OTHER ==
[2022-07-04 11:23] LABS: BLOOD UREA NITROGEN 19 MG/DL (9-23); CALCIUM LEVEL 8.7 MG/DL (8.3-10.6); CARBON DIOXIDE LEVEL 28 MMOL/L (20-31); CHLORIDE LEVEL 105 MMOL/L (98-107); CREATININE FOR GFR 0.97 MG/DL (0.70-1.30); GLOMERULAR FILTRATION RATE > 60.0 (>35); GLUCOSE, FASTING 100 MG/DL (74-106); MAGNESIUM LEVEL 1.8 MG/DL (1.8-2.4); POTASSIUM SERUM 4.4 MMOL/L (3.5-5.1); SODIUM LEVEL 141 MMOL/L (136-145)
== END ==
LOC: M PLALAB 08:47
PROVIDERS: ATTEND Physician Assistant
DX: I48.21 Permanent atrial fibrillation (principal)

== ENCOUNTER → 2022-07-23 | Outpatient (REF) | payer MEDICARE, OTHER ==
[~2022-07-23] MED LIST changes: +ALBU8.5H INH; +DICL20GE TP; +PRESCAP4 PO; +VITAD1000T PO
[2022-07-23 12:46] LABS: MEAN CORPUSCULAR HEMOGLOBIN 31.2 pg (27.0-33.0); MEAN CORPUSCULAR VOLUME 100.7 fl (80.0-96.0); PLATELET COUNT, AUTOMATED 227 10^3/uL (150-450); RED BLOOD COUNT 4.17 10^6/uL (4.30-6.10); WHITE BLOOD COUNT 19.4 10^3/uL (4.0-10.0)
[2022-07-23 13:15] LABS: C REACTIVE PROTEIN QUANTITATIV < 0.40 MG/DL (<1.0)
[2022-07-23 13:39] LABS: ATYPICAL LYMPH 2 % (0-5); BASOPHILS 4 % (0-1); LYMPHOCYTES 7 % (16-44); METAMYELOCYTES 5 % (0-0); MONOCYTES 6 % (0-5); MYELOCYTES 6 % (0-0); NEUTROPHILS 58 % (28-66); PLATELET ESTIMATE NORMAL (NORMAL)
[2022-07-23 13:42] LABS: ERYTHROCYTE SEDIMENTATION RATE 14 mm/hr (0-20)
[2022-07-23 14:18] LABS: ALBUMIN 4.1 G/DL (3.2-5.2); ALKALINE PHOSPHATASE 73 U/L (46-116); ALT/SGPT 21 U/L (7.0-40); AST/SGOT 22 U/L (<34); BILIRUBIN,TOTAL 1.7 MG/DL (0.3-1.2); BLOOD UREA NITROGEN 19 MG/DL (9-23); CALCIUM LEVEL 9.1 MG/DL (8.3-10.6); CARBON DIOXIDE LEVEL 28 MMOL/L (20-31); CHLORIDE LEVEL 101 MMOL/L (98-107); GLUCOSE, FASTING 151 MG/DL (74-106); SODIUM LEVEL 138 MMOL/L (136-145); TOTAL PROTEIN 6.7 G/DL (5.7-8.2)
[2022-07-23 19:57] LABS: CREATININE FOR GFR 0.81 MG/DL (0.70-1.30); GLOMERULAR FILTRATION RATE > 60.0 (>35)
== END ==
LOC: M SFHCRHEU 10:04
PROVIDERS: ATTEND Internal Medicine Rheumatology
DX: M06.09 Rheumatoid arthritis without rheumatoid factor, multiple sites (principal); M15.0 Primary generalized (osteo)arthritis; R17 Unspecified jaundice; Z79.899 Other long term (current) drug therapy

== ENCOUNTER 2022-07-25 11:06 | Observation (INO) | payer MEDICARE, OTHER ==
[~2022-07-25] VITALS: Ht 167.6 cm; Wt 98.7 kg
[~2022-07-25 11:06] MED LIST changes: -ALBU8.5H INH; -DICL20GE TP; +INSU100I6 SC; -LEVE1INJ5 SC; -PRESCAP4 PO; -VITAD1000T PO
[2022-07-25 12:14] LABS: HEMATOCRIT 40.5 % (42.0-52.0); MEAN CORPUSCULAR HEMOGLOBIN 31.8 pg (27.0-33.0); MEAN CORPUSCULAR HGB CONC 32.1 g/dl (32.0-36.5); PLATELET COUNT, AUTOMATED 236 10^3/uL (150-450); RED BLOOD COUNT 4.09 10^6/uL (4.30-6.10); WHITE BLOOD COUNT 20.5 10^3/uL (4.0-10.0)
[2022-07-25 12:36] LABS: INR 1.16
[2022-07-25 12:37] LABS: PARTIAL THROMBOPLASTIN TIME 29.6 SECONDS (24.8-34.2)
[2022-07-25 12:39] LABS: BLOOD UREA NITROGEN 25 MG/DL (9-23); CALCIUM LEVEL 9.4 MG/DL (8.3-10.6); CARBON DIOXIDE LEVEL 25 MMOL/L (20-31); CHLORIDE LEVEL 105 MMOL/L (98-107); CK-MB VALUE MASS 3.1 NG/ML (<3.6); CPK CREATINE PHOSPHOKINASE 153 U/L (46-171); CREATININE FOR GFR 0.87 MG/DL (0.70-1.30); GLOMERULAR FILTRATION RATE > 60.0 (>35); GLUCOSE, FASTING 92 MG/DL (74-106); MB/CK RELATIVE INDEX 2.02 (< OR =4); POTASSIUM SERUM 4.1 MMOL/L (3.5-5.1); SODIUM LEVEL 140 MMOL/L (136-145)
[2022-07-25 12:52] LABS: RSV AMPLIFICATION NEGATIVE (NEGATIVE)
[2022-07-25 13:09] LABS: ANISOCYTOSIS 1+; ATYPICAL LYMPH 3 % (0-5); BASOPHILS 1 % (0-1); LYMPHOCYTES 9 % (16-44); METAMYELOCYTES 6 % (0-0); MONOCYTES 9 % (0-5); MYELOCYTES 4 % (0-0); NEUTROPHILS 64 % (28-66)
[2022-07-25 13:10] LABS: PLATELET ESTIMATE NORMAL (NORMAL)
[2022-07-25] MEDS ORDERED: ISOVUE-370 76% 100ML VIAL As Ordered ONE (15:33)
[2022-07-25] MEDS ORDERED: cefTRIAXone SOD 2 GM in D5W MINI-BAG PLUS 50 ML IV ONE (17:05)
[2022-07-25] MEDS ORDERED: ACETAMINOPHEN TAB 650MG DOSE (2X325MG) PO PRN (17:30)
[2022-07-25] MEDS: NS 1,000 ML IV SCH (18:04)
[2022-07-25] MEDS ORDERED: DEXTROSE 50% 50ML SYRINGE IV PRN (18:25)
[2022-07-25] MEDS ORDERED: GLUCAGON INJ 1MG VIAL SC PRN (18:25)
[2022-07-25] MEDS ORDERED: GLUCOSE 4GM CHEW TABLET PO PRN (18:25)
[2022-07-25] MEDS ORDERED: DICL20GE TP (18:42)
[2022-07-25] MEDS ORDERED: VITAD1000T PO (18:42)
[2022-07-25] MEDS ORDERED: ALBU8.5H INH (18:42)
[2022-07-25] MEDS ORDERED: VERA40TA PO (18:46)
[2022-07-25] MEDS ORDERED: PRESCAP4 PO (18:46)
[2022-07-25] MEDS ORDERED: HOME MED LIST COMPLETE! XX SCH (18:50)
[2022-07-25] MEDS ORDERED: traMADol 50 MG TAB PO PRN (18:55)
[2022-07-25] MEDS ORDERED: FLUTICASONE PROP 0.05% NASAL SPRAY 16 GM (FLONASE) NARES PRN (18:55)
[2022-07-25] MEDS ORDERED: COMBIVENT RESPIMAT 100-20MCG INHALER 4GM INH PRN (18:55)
[2022-07-25] MEDS ORDERED: ALBUTEROL 90 MCG/ACT 8GM HFA INHALER INH PRN (18:55)
[2022-07-25 19:01] LABS: CK-MB VALUE MASS 1.9 NG/ML (<3.6)
[2022-07-25 19:02] LABS: CHOLESTEROL RISK RATIO 3.31 (<5); LDL CHOLESTEROL 52.6 MG/DL (<100)
[2022-07-25 19:03] LABS: MB/CK RELATIVE INDEX 1.4 (< OR =4)
[2022-07-25] MEDS: ADVAIR HFA 230/21MCG INHALER INH SCH (20:00)
[2022-07-25 20:40] VITALS: BP 147/78
[2022-07-25] MEDS ORDERED: INSULIN LISPRO (NovoLOG) PER UNIT SC SCH (21:00)
[2022-07-25] MEDS ORDERED: GABAPENTIN 300 MG CAP PO SCH (21:00)
[2022-07-25] MEDS ORDERED: ATORVASTATIN 20 MG TAB PO SCH (21:00)
[2022-07-25] MEDS ORDERED: LEVEMIR (INSULIN DETEMIR) 1 UNITS/0.01ML SC SCH (21:00)
[2022-07-25] MEDS: VERAPAMIL 40 MG TAB PO SCH (21:00)
[2022-07-25] MEDS: PREGABALIN 75 MG CAP(LYRICA) PO SCH (22:07)
[2022-07-25] MEDS: APIXABAN 5 MG TAB (ELIQUIS) PO SCH (22:08)
[2022-07-26] MEDS: NS 1,000 ML IV SCH (03:14)
[2022-07-26 06:00] VITALS: BP 140/76
[2022-07-26 06:14] LABS: HEMATOCRIT 40.2 % (42.0-52.0); HEMOGLOBIN 12.7 g/dl (13.5-17.5); MEAN CORPUSCULAR HEMOGLOBIN 31.7 pg (27.0-33.0); MEAN CORPUSCULAR HGB CONC 31.6 g/dl (32.0-36.5); MEAN CORPUSCULAR VOLUME 100.2 fl (80.0-96.0); PLATELET COUNT, AUTOMATED 228 10^3/uL (150-450); RED BLOOD COUNT 4.01 10^6/uL (4.30-6.10); WHITE BLOOD COUNT 18.2 10^3/uL (4.0-10.0)
[2022-07-26 06:37] LABS: ALBUMIN 3.7 G/DL (3.2-5.2); ALKALINE PHOSPHATASE 64 U/L (46-116); ALT/SGPT 19 U/L (7.0-40); AST/SGOT 23 U/L (<34); BILIRUBIN,TOTAL 1.6 MG/DL (0.3-1.2); BLOOD UREA NITROGEN 19 MG/DL (9-23); CALCIUM LEVEL 8.5 MG/DL (8.3-10.6); CARBON DIOXIDE LEVEL 25 MMOL/L (20-31); CHLORIDE LEVEL 106 MMOL/L (98-107); CREATININE FOR GFR 0.81 MG/DL (0.70-1.30); GLOMERULAR FILTRATION RATE > 60.0 (>35); GLUCOSE, FASTING 85 MG/DL (74-106); SODIUM LEVEL 140 MMOL/L (136-145); TOTAL PROTEIN 6.1 G/DL (5.7-8.2)
[2022-07-26] MEDS: INSULIN LISPRO (NovoLOG) PER UNIT SC SCH ×2 (07:23→12:00)
[2022-07-26] MEDS ORDERED: LACTOBACILLUS ACIDOPHILUS CAP (BACID) PO SCH (08:00)
[2022-07-26] MEDS: ADVAIR HFA 230/21MCG INHALER INH SCH (08:06)
[2022-07-26 08:23] LABS: BASO # 0.7 10^3/uL (0.0-0.2); BASO % 3.7 % (0.0-1.0); EOS # 0.2 10^3/uL (0.0-0.5); EOS % 1.2 % (0.0-3.0); LYMPH % 10.8 % (24.0-44.0); MONO # 1.3 10^3/uL (0.0-0.8); MONO % 7.1 % (2.0-8.0); NEUTROPHILS # 10.3 10^3/uL (1.5-8.5); NEUTROPHILS % 55.8 % (36.0-66.0)
[2022-07-26] MEDS ORDERED: FOLIC ACID 1MG TAB PO SCH (09:00)
[2022-07-26] MEDS ORDERED: predniSONE 2.5 MG TAB PO SCH (09:00)
[2022-07-26] MEDS ORDERED: PANTOPRAZOLE 40MG TAB (PROTONIX) PO SCH (09:00)
[2022-07-26] MEDS: PREGABALIN 75 MG CAP(LYRICA) PO SCH (09:51)
[2022-07-26] MEDS: APIXABAN 5 MG TAB (ELIQUIS) PO SCH (09:51)
[2022-07-26 09:52] VITALS: BP 120/64
[2022-07-26] MEDS: VERAPAMIL 40 MG TAB PO SCH (09:52)
[2022-07-26 14:00] VITALS: BP 126/75
[2022-09-13] MEDS ORDERED: VALA1TAB5 (13:21)
[2022-09-13] MEDS ORDERED: PREDOPD (13:55)
[2022-09-13] MEDS ORDERED: COMBAER6 INH (13:55)
[2022-09-13] MEDS ORDERED: DORZ2SOL5 OP (13:55)
[2022-09-13] MEDS ORDERED: PROA1AER2 INH (13:55)
[2022-09-13] MEDS ORDERED: VITA500C24 PO (13:55)
[2022-09-13] MEDS ORDERED: RA M500C PO (13:55)
[2022-09-13] MEDS ORDERED: ADV100INH INH (13:55)
[2022-09-13] MEDS ORDERED: ONDA-84 PO (14:04)
[2022-09-13] MEDS ORDERED: IMAT100TAB PO (14:04)
== END 2022-07-26 15:29 | disposition home or self-care (01) ==
LOC: M ED 11:06 → M ED INP 17:30 → INTOOBSV 17:30 → M MSPAV 20:38
PROVIDERS: ADMIT Internal Medicine; ATTEND Internal Medicine
DX: D72.825 Bandemia (principal); E11.9 Type 2 diabetes mellitus without complications; I10 Essential (primary) hypertension; J44.9 Chronic obstructive pulmonary disease, unspecified; I48.91 Unspecified atrial fibrillation; K21.9 Gastro-esophageal reflux disease without esophagitis; G47.33 Obstructive sleep apnea (adult) (pediatric); Z79.01 Long term (current) use of anticoagulants; Z79.4 Long term (current) use of insulin; Z79.84 Long term (current) use of oral hypoglycemic drugs; Z79.52 Long term (current) use of systemic steroids; M06.09 Rheumatoid arthritis without rheumatoid factor, multiple sites; M15.9 Polyosteoarthritis, unspecified; R17 Unspecified jaundice; Z79.899 Other long term (current) drug therapy
CPT/HCPCS: 36415; 70450; 71045; 71260; 74177; 80048; 80053; 80061; 80503; 81001; 82140; 82550; 82553; 83605; 84145; 84484; 85025; 85027; 85610; 85730; 87040; 87086; 87507; 87631; 93005; 93041; 94640; 94760; 96365; 96375; 96376; 97161; 97165; 97535; 99285; G0378; J0696; J1815; J7512; Q9967

== ENCOUNTER → 2022-07-29 | Outpatient (CLI) | payer MEDICARE, OTHER ==
[~2022-07-29] MED LIST changes: +ALBU8.5H INH; +DICL20GE TP; -INSU100I6 SC; +LEVE1INJ5 SC; +PRESCAP4 PO; +VITAD1000T PO
== END ==
LOC: M LAB 09:02
PROVIDERS: ATTEND Internal Medicine
DX: D72.829 Elevated white blood cell count, unspecified (principal)

== ENCOUNTER → 2022-08-28 | Outpatient (REF) | payer MEDICARE, OTHER ==
[~2022-08-28] MED LIST changes: +INSU100I6 SC; -LEVE1INJ5 SC
[2022-08-28 21:13] LABS: ATYPICAL LYMPH 2 % (0-5); BASOPHILS 3 % (0-1); EOSINOPHILS 2 % (0-3); LYMPHOCYTES 11 % (16-44); METAMYELOCYTES 4 % (0-0); MONOCYTES 3 % (0-5); MYELOCYTES 3 % (0-0); NEUTROPHILS 70 % (28-66)
[2022-08-28 21:17] LABS: PLATELET ESTIMATE NORMAL (NORMAL)
== END ==
LOC: M LAB REF 16:23
PROVIDERS: ATTEND Nurse Practitioner Family
DX: C92.10 Chronic myeloid leukemia, BCR/ABL-positive, not having achieved remission (principal)

== ENCOUNTER → 2022-08-29 | Outpatient (CLI) | payer MEDICARE, OTHER ==
[~2022-08-29] MED LIST changes: +LIDOCAINE 1% MDV 20ML VIAL As Ordered ONE
[2022-08-29 12:12] LABS: HEMATOCRIT 42.3 % (42.0-52.0); MEAN CORPUSCULAR HGB CONC 30.7 g/dl (32.0-36.5); PLATELET COUNT, AUTOMATED 255 10^3/uL (150-450); RED BLOOD COUNT 4.19 10^6/uL (4.30-6.10); WHITE BLOOD COUNT 22.9 10^3/uL (4.0-10.0)
[2022-08-29 12:33] VITALS: BP 147/91
[2022-08-29 13:02] LABS: ATYPICAL LYMPH 12 % (0-5); BASOPHILS 3 % (0-1); EOSINOPHILS 1 % (0-3); LYMPHOCYTES 5 % (16-44); METAMYELOCYTES 7 % (0-0); MONOCYTES 6 % (0-5); MYELOCYTES 2 % (0-0); NEUTROPHILS 56 % (28-66)
[2022-08-29 13:04] LABS: ANISOCYTOSIS 2+
[2022-08-29 13:05] LABS: PLATELET ESTIMATE NORMAL (NORMAL)
== END ==
LOC: M IRPRO 11:13
PROVIDERS: ATTEND Specialist
DX: C95.90 Leukemia, unspecified not having achieved remission (principal)

== ENCOUNTER → 2022-10-08 | Outpatient (REF) | payer MEDICARE, OTHER ==
[~2022-10-08] MED LIST changes: +ADV100INH INH; +DORZ2SOL5 OP; +IMAT100TAB PO; +IMAT400T PO; -LIDOCAINE 1% MDV 20ML VIAL As Ordered ONE; +ONDA-84 PO; +PREDOPD; +PROA1AER2 INH; +RA M500C PO; +VALA1TAB5; +VITA500C24 PO
[2022-10-08 12:53] LABS: C REACTIVE PROTEIN QUANTITATIV < 0.40 MG/DL (<1.0)
[2022-10-08 12:55] LABS: ALBUMIN 4.2 G/DL (3.2-5.2); ALKALINE PHOSPHATASE 71 U/L (46-116); ALT/SGPT 23 U/L (7.0-40); AST/SGOT 19 U/L (<34); BILIRUBIN,TOTAL 1.7 MG/DL (0.3-1.2); BLOOD UREA NITROGEN 18 MG/DL (9-23); CALCIUM LEVEL 9.1 MG/DL (8.3-10.6); CARBON DIOXIDE LEVEL 30 MMOL/L (20-31); CHLORIDE LEVEL 105 MMOL/L (98-107); CREATININE FOR GFR 0.99 MG/DL (0.70-1.30); GLOMERULAR FILTRATION RATE > 60.0 (>35); GLUCOSE, FASTING 98 MG/DL (74-106); HEMATOCRIT 42.3 % (42.0-52.0); HEMOGLOBIN 13.2 g/dl (13.5-17.5); MEAN CORPUSCULAR HEMOGLOBIN 32.3 pg (27.0-33.0); MEAN CORPUSCULAR HGB CONC 31.2 g/dl (32.0-36.5); MEAN CORPUSCULAR VOLUME 103.4 fl (80.0-96.0); PLATELET COUNT, AUTOMATED 242 10^3/uL (150-450); RED BLOOD COUNT 4.09 10^6/uL (4.30-6.10); SODIUM LEVEL 141 MMOL/L (136-145); TOTAL PROTEIN 6.7 G/DL (5.7-8.2); WHITE BLOOD COUNT 19.1 10^3/uL (4.0-10.0)
[2022-10-08 13:35] LABS: ERYTHROCYTE SEDIMENTATION RATE 6 mm/hr (0-20)
[2022-10-08 13:56] LABS: ANISOCYTOSIS 2+; ATYPICAL LYMPH 3 % (0-5); BASOPHILS 2 % (0-1); EOSINOPHILS 2 % (0-3); LYMPHOCYTES 12 % (16-44); METAMYELOCYTES 2 % (0-0); MONOCYTES 10 % (0-5); MYELOCYTES 4 % (0-0); NEUTROPHILS 55 % (28-66); PLATELET ESTIMATE NORMAL (NORMAL)
== END ==
LOC: M SFHCRHEU 08:00
PROVIDERS: ATTEND Internal Medicine Rheumatology
DX: M15.0 Primary generalized (osteo)arthritis (principal); M06.09 Rheumatoid arthritis without rheumatoid factor, multiple sites; R17 Unspecified jaundice; Z79.899 Other long term (current) drug therapy

== ENCOUNTER → 2022-11-04 | Outpatient (CLI) | payer MEDICARE, OTHER ==
[~2022-11-04] MED LIST changes: +INSU100I48 SQ; +[UNRECOGNIZED DRUG - OTHER]
[2022-11-04 12:49] LABS: ALBUMIN 4.3 G/DL (3.2-5.2); ALKALINE PHOSPHATASE 86 U/L (46-116); ALT/SGPT 30 U/L (7.0-40); AST/SGOT 22 U/L (<34); BILIRUBIN,TOTAL 1.4 MG/DL (0.3-1.2); BLOOD UREA NITROGEN 20 MG/DL (9-23); CALCIUM LEVEL 8.2 MG/DL (8.3-10.6); CARBON DIOXIDE LEVEL 27 MMOL/L (20-31); CHLORIDE LEVEL 106 MMOL/L (98-107); CREATININE FOR GFR 1.04 MG/DL (0.70-1.30); GLOMERULAR FILTRATION RATE > 60.0 (>35); GLUCOSE, FASTING 93 MG/DL (74-106); POTASSIUM SERUM 4.3 MMOL/L (3.5-5.1); SODIUM LEVEL 141 MMOL/L (136-145); TOTAL PROTEIN 6.6 G/DL (5.7-8.2)
== END ==
LOC: M LAB 11:39
PROVIDERS: ATTEND Nurse Practitioner Family
DX: Z51.81 Encounter for therapeutic drug level monitoring (principal); Z79.899 Other long term (current) drug therapy

== ENCOUNTER → 2023-01-09 | Outpatient (REF) | payer MEDICARE, OTHER ==
[~2023-01-09] MED LIST changes: +DICL100G10 TOP; -DICL1GEL3 TOP; -DORZ2SOL5 OP; +DORZ2SOL5 OU; -HYDR200T3 PO; +HYDR200T46 PO; -PREDOPD; +PREDOPD OD; -VALA1TAB5; +VALA1TAB5 PO
[2023-01-09 13:04] LABS: CREATININE, URINE 130.4 MG/DL
[2023-01-09 13:05] LABS: MAU/CREAT RATIO 31.4 MCG/MG (0.0-30.0)
== END ==
LOC: M LAB REF 11:24
PROVIDERS: ATTEND Nurse Practitioner Family
DX: E11.9 Type 2 diabetes mellitus without complications (principal)

== ENCOUNTER → 2023-01-16 | Outpatient (REF) | payer MEDICARE, OTHER ==
[2023-01-16 13:00] LABS: BASO % 0.6 % (0.0-1.0); EOS # 0.1 10^3/uL (0.0-0.5); EOS % 2.4 % (0.0-3.0); HEMATOCRIT 37.8 % (42.0-52.0); HEMOGLOBIN 12.1 g/dl (13.5-17.5); LYMPH # 1.2 10^3/uL (1.5-5.0); LYMPH % 22.6 % (24.0-44.0); MEAN CORPUSCULAR HEMOGLOBIN 33.5 pg (27.0-33.0); MEAN CORPUSCULAR VOLUME 104.7 fl (80.0-96.0); MONO # 0.8 10^3/uL (0.0-0.8); MONO % 15.1 % (2.0-8.0); NEUTROPHILS # 3.2 10^3/uL (1.5-8.5); NEUTROPHILS % 58.9 % (36.0-66.0); PLATELET COUNT, AUTOMATED 186 10^3/uL (150-450); RED BLOOD COUNT 3.61 10^6/uL (4.30-6.10); WHITE BLOOD COUNT 5.4 10^3/uL (4.0-10.0)
[2023-01-16 13:03] LABS: C REACTIVE PROTEIN QUANTITATIV < 0.40 MG/DL (<1.0)
[2023-01-16 13:05] LABS: ALBUMIN 3.8 G/DL (3.2-5.2); ALKALINE PHOSPHATASE 80 U/L (46-116); ALT/SGPT 22 U/L (7.0-40); AST/SGOT 15 U/L (<34); BILIRUBIN,TOTAL 1.9 MG/DL (0.3-1.2); BLOOD UREA NITROGEN 15 MG/DL (9-23); CALCIUM LEVEL 8.6 MG/DL (8.3-10.6); CARBON DIOXIDE LEVEL 30 MMOL/L (20-31); CHLORIDE LEVEL 105 MMOL/L (98-107); CREATININE FOR GFR 0.92 MG/DL (0.70-1.30); GLOMERULAR FILTRATION RATE > 60.0 (>35); GLUCOSE, FASTING 81 MG/DL (74-106); POTASSIUM SERUM 4.3 MMOL/L (3.5-5.1); SODIUM LEVEL 141 MMOL/L (136-145); TOTAL PROTEIN 6.3 G/DL (5.7-8.2)
[2023-01-16 13:21] LABS: ERYTHROCYTE SEDIMENTATION RATE 5 mm/hr (0-20)
== END ==
LOC: M SFHCRHEU 09:07
PROVIDERS: ATTEND Internal Medicine Rheumatology
DX: M06.09 Rheumatoid arthritis without rheumatoid factor, multiple sites (principal); M15.0 Primary generalized (osteo)arthritis; R17 Unspecified jaundice; Z79.899 Other long term (current) drug therapy

== ENCOUNTER → 2023-01-16 | Outpatient (CLI) | payer OTHER, MEDICARE | LOC: M PLAIMG 12:43 | PROVIDERS: ATTEND Physical Medicine & Rehabilitation | DX: M47.812 Spondylosis without myelopathy or radiculopathy, cervical region (principal); Z53.9 Procedure and treatment not carried out, unspecified reason ==

== ENCOUNTER → 2023-04-21 | Outpatient (REF) | payer MEDICARE, OTHER | LOC: M SFHCRHEU 09:03 | PROVIDERS: ATTEND Internal Medicine Rheumatology | DX: M06.09 Rheumatoid arthritis without rheumatoid factor, multiple sites (principal); M15.0 Primary generalized (osteo)arthritis ==

== ENCOUNTER 2023-05-29 17:16 | Emergency (ER) | payer MEDICARE, OTHER ==
[~2023-05-29] VITALS: Ht 167.6 cm; Wt 103.8 kg
[2023-05-29 18:53] LABS: BASO % 0.4 % (0.0-1.0); EOS # 0.1 10^3/uL (0.0-0.5); EOS % 2.1 % (0.0-3.0); HEMATOCRIT 32.8 % (42.0-52.0); HEMOGLOBIN 10.4 g/dl (13.5-17.5); LYMPH # 1.2 10^3/uL (1.5-5.0); LYMPH % 23.2 % (24.0-44.0); MEAN CORPUSCULAR HEMOGLOBIN 34.7 pg (27.0-33.0); MEAN CORPUSCULAR HGB CONC 31.7 g/dl (32.0-36.5); MEAN CORPUSCULAR VOLUME 109.3 fl (80.0-96.0); MONO # 0.8 10^3/uL (0.0-0.8); MONO % 15.1 % (2.0-8.0); NEUTROPHILS # 3.1 10^3/uL (1.5-8.5); NEUTROPHILS % 58.4 % (36.0-66.0); PLATELET COUNT, AUTOMATED 172 10^3/uL (150-450); WHITE BLOOD COUNT 5.3 10^3/uL (4.0-10.0)
[2023-05-29 19:27] LABS: ALBUMIN 3.7 G/DL (3.2-5.2); ALKALINE PHOSPHATASE 66 U/L (46-116); ALT/SGPT 21 U/L (7.0-40); AST/SGOT 21 U/L (<34); BILIRUBIN,DIRECT 0.4 MG/DL (<0.4); BILIRUBIN,TOTAL 1.3 MG/DL (0.3-1.2); BLOOD UREA NITROGEN 16 MG/DL (9-23); CALCIUM LEVEL 8.3 MG/DL (8.3-10.6); CARBON DIOXIDE LEVEL 30 MMOL/L (20-31); CHLORIDE LEVEL 107 MMOL/L (98-107); CREATININE FOR GFR 0.89 MG/DL (0.70-1.30); GLOMERULAR FILTRATION RATE > 60.0 (>35); GLUCOSE, FASTING 122 MG/DL (74-106); POTASSIUM SERUM 4.4 MMOL/L (3.5-5.1); SODIUM LEVEL 141 MMOL/L (136-145); TOTAL PROTEIN 5.8 G/DL (5.7-8.2)
[2023-05-29 20:00] VITALS: BP 156/87; TEMP 97.4; O2SAT 100
== END 2023-05-29 20:11 | disposition home or self-care (01) ==
LOC: M ED 17:16
DX: R22.43 Localized swelling, mass and lump, lower limb, bilateral (principal); E11.9 Type 2 diabetes mellitus without complications; I10 Essential (primary) hypertension; E78.5 Hyperlipidemia, unspecified; J44.9 Chronic obstructive pulmonary disease, unspecified; K21.9 Gastro-esophageal reflux disease without esophagitis; Z86.79 Personal history of other diseases of the circulatory system; Z88.8 Allergy status to other drugs, medicaments and biological substances; Z79.01 Long term (current) use of anticoagulants; Z79.52 Long term (current) use of systemic steroids; Z79.811 Long term (current) use of aromatase inhibitors; Z79.83 Long term (current) use of bisphosphonates; Z79.899 Other long term (current) drug therapy

== ENCOUNTER 2023-06-03 14:33 | Emergency (ER) | payer MEDICARE, OTHER ==
[~2023-06-03] VITALS: Ht 167.6 cm; Wt 99.5 kg
[2023-06-03 16:01] LABS: BASO % 0.1 % (0.0-1.0); EOS % 0.2 % (0.0-3.0); HEMATOCRIT 31.9 % (42.0-52.0); HEMOGLOBIN 10.1 g/dl (13.5-17.5); LYMPH # 0.7 10^3/uL (1.5-5.0); LYMPH % 9.1 % (24.0-44.0); MEAN CORPUSCULAR HEMOGLOBIN 34.1 pg (27.0-33.0); MEAN CORPUSCULAR HGB CONC 31.7 g/dl (32.0-36.5); MEAN CORPUSCULAR VOLUME 107.8 fl (80.0-96.0); MONO # 0.7 10^3/uL (0.0-0.8); NEUTROPHILS # 6.7 10^3/uL (1.5-8.5); NEUTROPHILS % 82.2 % (36.0-66.0); PLATELET COUNT, AUTOMATED 197 10^3/uL (150-450); RED BLOOD COUNT 2.96 10^6/uL (4.30-6.10); WHITE BLOOD COUNT 8.1 10^3/uL (4.0-10.0)
[2023-06-03 16:30] LABS: LIPASE 30 U/L (12-53)
[2023-06-03 16:33] LABS: ALBUMIN 3.6 G/DL (3.2-5.2); ALKALINE PHOSPHATASE 69 U/L (46-116); ALT/SGPT 23 U/L (7.0-40); AST/SGOT 26 U/L (<34); BILIRUBIN,DIRECT 0.8 MG/DL (<0.4); BILIRUBIN,TOTAL 2.1 MG/DL (0.3-1.2); BLOOD UREA NITROGEN 21 MG/DL (9-23); CALCIUM LEVEL 8.1 MG/DL (8.3-10.6); CARBON DIOXIDE LEVEL 28 MMOL/L (20-31); CHLORIDE LEVEL 109 MMOL/L (98-107); CREATININE FOR GFR 0.89 MG/DL (0.70-1.30); GLOMERULAR FILTRATION RATE > 60.0 (>35); GLUCOSE, FASTING 108 MG/DL (74-106); POTASSIUM SERUM 3.9 MMOL/L (3.5-5.1); SODIUM LEVEL 144 MMOL/L (136-145); TOTAL PROTEIN 5.7 G/DL (5.7-8.2)
[2023-06-03] MEDS ORDERED: ONDANSETRON 4MG 2ML VIAL IV ONE (17:50)
[2023-06-03] MEDS ORDERED: ISOVUE-370 76% 100ML VIAL As Ordered ONE (17:55)
[2023-06-03 19:02] LABS: CK-MB VALUE MASS 3.5 NG/ML (<3.6); ETHYL ALCOHOL (ETHANOL) 0.005 % (0.000-0.010)
[2023-06-03 19:03] LABS: SALICYLATE LEVEL < 3.0 MG/DL (<30)
[2023-06-03 19:04] LABS: CPK CREATINE PHOSPHOKINASE 230 U/L (46-171); MB/CK RELATIVE INDEX 1.52 (< OR =4)
[2023-06-03 19:05] LABS: INR 1.24; PROTHROMBIN TIME 15.2 SECONDS (12.5-14.5)
[2023-06-03 19:06] LABS: PARTIAL THROMBOPLASTIN TIME 27.9 SECONDS (24.8-34.2)
[2023-06-03 19:23] LABS: RSV AMPLIFICATION NEGATIVE (NEGATIVE)
[2023-06-03 22:41] VITALS: BP 126/68; TEMP 97.6; O2SAT 99
== END 2023-06-03 23:13 | disposition home or self-care (01) ==
LOC: M ED 14:33
DX: R11.2 Nausea with vomiting, unspecified (principal); R22.43 Localized swelling, mass and lump, lower limb, bilateral; I48.91 Unspecified atrial fibrillation; I44.4 Left anterior fascicular block; I45.10 Unspecified right bundle-branch block; I25.2 Old myocardial infarction; E11.9 Type 2 diabetes mellitus without complications; I10 Essential (primary) hypertension; E78.5 Hyperlipidemia, unspecified; J44.9 Chronic obstructive pulmonary disease, unspecified; M54.50 Low back pain, unspecified; Z87.442 Personal history of urinary calculi; Z79.01 Long term (current) use of anticoagulants; Z88.8 Allergy status to other drugs, medicaments and biological substances; Z79.52 Long term (current) use of systemic steroids; Z79.02 Long term (current) use of antithrombotics/antiplatelets; Z79.811 Long term (current) use of aromatase inhibitors; Z79.899 Other long term (current) drug therapy
CPT/HCPCS: 71275; 74177; 80048; 80076; 80143; 81001; 82077; 82140; 82550; 82553; 83605; 83690; 84484; 85025; 85610; 85730; 87040; 87507; 87631; 93005; 96374; 99284; J2405; Q9967

== ENCOUNTER → 2023-06-09 | Outpatient (CLI) | payer MEDICARE, OTHER | LOC: M CARPUL 08:07 | PROVIDERS: ATTEND Internal Medicine Medical Oncology | DX: C92.10 Chronic myeloid leukemia, BCR/ABL-positive, not having achieved remission (principal); I08.3 Combined rheumatic disorders of mitral, aortic and tricuspid valves; I27.20 Pulmonary hypertension, unspecified ==

== ENCOUNTER 2023-06-10 11:58 | Day surgery (SDC) | payer MEDICARE, OTHER ==
[~2023-06-10] VITALS: Ht 167.6 cm; Wt 99.8 kg
[~2023-06-10 11:58] MED LIST changes: +LIDOCAINE 2% 100MG/5ML SDV (FOR ANES.) As Ordered ONE; +NS 1,000 ML IV ONE; +propofoL 200 MG/20 ML VIAL As Ordered ONE
[2023-06-10] MEDS ORDERED: propofoL 200 MG/20 ML VIAL As Ordered ONE (13:55)
[2023-06-10 14:18] VITALS: TEMP 96.7
[2023-06-10 14:35] VITALS: BP 136/62; O2SAT 99
== END 2023-06-10 14:29 | disposition home or self-care (01) ==
LOC: M OPP 11:58
PROVIDERS: ATTEND Internal Medicine Gastroenterology
DX: Z12.11 Encounter for screening for malignant neoplasm of colon (principal); Z86.010 Personal history of colon polyps; D12.6 Benign neoplasm of colon, unspecified; K63.5 Polyp of colon; K57.30 Diverticulosis of large intestine without perforation or abscess without bleeding; K64.0 First degree hemorrhoids; K31.89 Other diseases of stomach and duodenum; K44.9 Diaphragmatic hernia without obstruction or gangrene; K22.70 Barrett's esophagus without dysplasia; R12 Heartburn; I48.91 Unspecified atrial fibrillation; E11.9 Type 2 diabetes mellitus without complications; G47.30 Sleep apnea, unspecified; Z99.89 Dependence on other enabling machines and devices; Z79.01 Long term (current) use of anticoagulants; Z79.4 Long term (current) use of insulin; Z79.51 Long term (current) use of inhaled steroids; Z79.52 Long term (current) use of systemic steroids; Z79.622 Long term (current) use of Janus kinase inhibitor; Z79.631 Long term (current) use of antimetabolite agent; Z79.83 Long term (current) use of bisphosphonates; Z79.891 Long term (current) use of opiate analgesic; Z79.899 Other long term (current) drug therapy; Z88.8 Allergy status to other drugs, medicaments and biological substances

== ENCOUNTER → 2023-07-03 | Outpatient (CLI) | payer OTHER, MEDICARE ==
[~2023-07-03] MED LIST changes: +LEVO1TAB39 PO; -LIDOCAINE 2% 100MG/5ML SDV (FOR ANES.) As Ordered ONE; -NS 1,000 ML IV ONE; +PROC10TA5 PO; -propofoL 200 MG/20 ML VIAL As Ordered ONE
[2023-07-03 10:06] LABS: BLOOD UREA NITROGEN 14 MG/DL (9-23); CREATININE FOR GFR 0.95 MG/DL (0.70-1.30); GLOMERULAR FILTRATION RATE > 60.0 (>35)
== END ==
LOC: M LAB 08:59
PROVIDERS: ATTEND Physical Medicine & Rehabilitation
DX: M47.817 Spondylosis without myelopathy or radiculopathy, lumbosacral region (principal)

== ENCOUNTER → 2023-07-08 | Outpatient (REF) | payer MEDICARE, OTHER ==
[2023-07-08 15:43] LABS: C REACTIVE PROTEIN QUANTITATIV < 0.40 MG/DL (<1.0)
[2023-07-08 15:44] LABS: ALBUMIN 3.8 G/DL (3.2-5.2); ALKALINE PHOSPHATASE 63 U/L (46-116); ALT/SGPT 20 U/L (7.0-40); AST/SGOT 21 U/L (<34); BILIRUBIN,TOTAL 2.5 MG/DL (0.3-1.2); BLOOD UREA NITROGEN 17 MG/DL (9-23); CALCIUM LEVEL 8.3 MG/DL (8.3-10.6); CARBON DIOXIDE LEVEL 28 MMOL/L (20-31); CHLORIDE LEVEL 106 MMOL/L (98-107); CREATININE FOR GFR 0.86 MG/DL (0.70-1.30); GLOMERULAR FILTRATION RATE > 60.0 (>35); GLUCOSE, FASTING 85 MG/DL (74-106); POTASSIUM SERUM 3.9 MMOL/L (3.5-5.1); SODIUM LEVEL 140 MMOL/L (136-145); TOTAL PROTEIN 6.1 G/DL (5.7-8.2)
[2023-07-08 15:57] LABS: BASO % 0.4 % (0.0-1.0); EOS # 0.1 10^3/uL (0.0-0.5); EOS % 2.2 % (0.0-3.0); HEMATOCRIT 38.2 % (42.0-52.0); HEMOGLOBIN 11.8 g/dl (13.5-17.5); LYMPH % 18.8 % (24.0-44.0); MEAN CORPUSCULAR HEMOGLOBIN 32.7 pg (27.0-33.0); MEAN CORPUSCULAR HGB CONC 30.9 g/dl (32.0-36.5); MEAN CORPUSCULAR VOLUME 105.8 fl (80.0-96.0); MONO # 0.6 10^3/uL (0.0-0.8); MONO % 10.5 % (2.0-8.0); NEUTROPHILS # 3.7 10^3/uL (1.5-8.5); NEUTROPHILS % 67.9 % (36.0-66.0); PLATELET COUNT, AUTOMATED 201 10^3/uL (150-450); RED BLOOD COUNT 3.61 10^6/uL (4.30-6.10); WHITE BLOOD COUNT 5.4 10^3/uL (4.0-10.0)
[2023-07-08 16:21] LABS: ERYTHROCYTE SEDIMENTATION RATE 5 mm/hr (0-20)
== END ==
LOC: M SFHCRHEU 07:58
PROVIDERS: ATTEND Internal Medicine Rheumatology
DX: M15.0 Primary generalized (osteo)arthritis (principal); M06.09 Rheumatoid arthritis without rheumatoid factor, multiple sites

== ENCOUNTER → 2023-07-23 | Outpatient (REF) | payer MEDICARE, OTHER ==
[2023-07-23 13:29] LABS: CRYSTALS, BODY FLUID NONE SEEN (NONE SEEN); SOURCE, BODY FLUID RT WRIST; SOURCE, BODY FLUID CRYSTALS RT WRIST; SYNOVIAL FLUID COLOR YELLOW (COLORLESS)
== END ==
LOC: M SFHCRHEU 11:27
PROVIDERS: ATTEND Internal Medicine Rheumatology
DX: M06.09 Rheumatoid arthritis without rheumatoid factor, multiple sites (principal); M15.0 Primary generalized (osteo)arthritis; R17 Unspecified jaundice; Z79.899 Other long term (current) drug therapy; D64.89 Other specified anemias; M25.431 Effusion, right wrist

== ENCOUNTER → 2023-07-29 | Outpatient (REF) | payer MEDICARE, OTHER ==
[~2023-07-29] MED LIST changes: +PRED20TA PO; +PRED5TA PO
== END ==
LOC: M LAB REF 14:47
PROVIDERS: ATTEND Internal Medicine Medical Oncology
DX: D72.829 Elevated white blood cell count, unspecified (principal); R19.7 Diarrhea, unspecified; A04.0 Enteropathogenic Escherichia coli infection

== ENCOUNTER → 2023-07-30 | Outpatient (CLI) | payer MEDICARE, OTHER ==
[~2023-07-30] MED LIST changes: +PROHANCE 279.3MG/ML 15ML VIAL ONE; +PROHANCE 279.3MG/ML 5ML VIAL ONE
== END ==
LOC: M PLAIMG 12:41
PROVIDERS: ATTEND Physical Medicine & Rehabilitation
DX: M47.812 Spondylosis without myelopathy or radiculopathy, cervical region (principal); M48.061 Spinal stenosis, lumbar region without neurogenic claudication
CPT/HCPCS: 72156; 72158; A9576

== ENCOUNTER → 2023-08-19 | Outpatient (REF) | payer MEDICARE, OTHER ==
[~2023-08-19] MED LIST changes: -PROHANCE 279.3MG/ML 15ML VIAL ONE; -PROHANCE 279.3MG/ML 5ML VIAL ONE
[2023-08-19 13:36] LABS: URIC ACID 3.2 MG/DL (3.7-9.2)
[2023-08-19 13:37] LABS: BASO % 0.4 % (0.0-1.0); EOS # 0.1 10^3/uL (0.0-0.5); EOS % 2.1 % (0.0-3.0); HEMATOCRIT 35.9 % (42.0-52.0); HEMOGLOBIN 11.3 g/dl (13.5-17.5); LYMPH # 1.1 10^3/uL (1.5-5.0); LYMPH % 18.9 % (24.0-44.0); MEAN CORPUSCULAR HEMOGLOBIN 32.6 pg (27.0-33.0); MEAN CORPUSCULAR HGB CONC 31.5 g/dl (32.0-36.5); MEAN CORPUSCULAR VOLUME 103.5 fl (80.0-96.0); MONO # 0.7 10^3/uL (0.0-0.8); NEUTROPHILS # 3.8 10^3/uL (1.5-8.5); NEUTROPHILS % 66.1 % (36.0-66.0); PLATELET COUNT, AUTOMATED 205 10^3/uL (150-450); RED BLOOD COUNT 3.47 10^6/uL (4.30-6.10); WHITE BLOOD COUNT 5.7 10^3/uL (4.0-10.0)
[2023-08-19 13:38] LABS: C REACTIVE PROTEIN QUANTITATIV < 0.40 MG/DL (<1.0)
[2023-08-19 13:39] LABS: ALBUMIN 3.9 G/DL (3.2-5.2); ALKALINE PHOSPHATASE 60 U/L (46-116); ALT/SGPT 20 U/L (7.0-40); AST/SGOT 14 U/L (<34); BILIRUBIN,TOTAL 2.5 MG/DL (0.3-1.2); BLOOD UREA NITROGEN 18 MG/DL (9-23); CALCIUM LEVEL 8.4 MG/DL (8.3-10.6); CARBON DIOXIDE LEVEL 29 MMOL/L (20-31); CHLORIDE LEVEL 104 MMOL/L (98-107); CREATININE FOR GFR 0.97 MG/DL (0.70-1.30); GLOMERULAR FILTRATION RATE > 60.0 (>35); GLUCOSE, FASTING 111 MG/DL (74-106); POTASSIUM SERUM 3.8 MMOL/L (3.5-5.1); SODIUM LEVEL 137 MMOL/L (136-145); TOTAL PROTEIN 6.1 G/DL (5.7-8.2)
[2023-08-19 14:00] LABS: ERYTHROCYTE SEDIMENTATION RATE 3 mm/hr (0-20)
== END ==
LOC: M SFHCRHEU 07:58
PROVIDERS: ATTEND Internal Medicine Rheumatology
DX: M06.09 Rheumatoid arthritis without rheumatoid factor, multiple sites (principal); M15.0 Primary generalized (osteo)arthritis; R17 Unspecified jaundice; Z79.899 Other long term (current) drug therapy; D64.89 Other specified anemias

== ENCOUNTER → 2023-09-29 | Outpatient (CLI) | payer MEDICARE, OTHER | LOC: M RAD 08:22 | PROVIDERS: ATTEND Internal Medicine Rheumatology | DX: M06.09 Rheumatoid arthritis without rheumatoid factor, multiple sites (principal); M15.0 Primary generalized (osteo)arthritis; R17 Unspecified jaundice; Z79.899 Other long term (current) drug therapy; D64.89 Other specified anemias ==

== ENCOUNTER → 2023-12-02 | Outpatient (REF) | payer MEDICARE, OTHER ==
[2023-12-02 18:02] LABS: C REACTIVE PROTEIN QUANTITATIV < 0.40 MG/DL (<1.0)
[2023-12-02 18:04] LABS: ALBUMIN 3.6 G/DL (3.2-5.2); ALKALINE PHOSPHATASE 72 U/L (46-116); ALT/SGPT 20 U/L (7.0-40); AST/SGOT 15 U/L (<34); BILIRUBIN,TOTAL 1.9 MG/DL (0.3-1.2); BLOOD UREA NITROGEN 17 MG/DL (9-23); CALCIUM LEVEL 8.4 MG/DL (8.3-10.6); CARBON DIOXIDE LEVEL 28 MMOL/L (20-31); CHLORIDE LEVEL 106 MMOL/L (98-107); GLOMERULAR FILTRATION RATE > 60.0 (>35); GLUCOSE, FASTING 150 MG/DL (74-106); POTASSIUM SERUM 4.4 MMOL/L (3.5-5.1); SODIUM LEVEL 140 MMOL/L (136-145); TOTAL PROTEIN 5.7 G/DL (5.7-8.2)
[2023-12-02 18:15] LABS: BASO % 0.5 % (0.0-1.0); EOS # 0.2 10^3/uL (0.0-0.5); EOS % 2.6 % (0.0-3.0); HEMATOCRIT 36.5 % (42.0-52.0); HEMOGLOBIN 11.3 g/dl (13.5-17.5); LYMPH # 1.1 10^3/uL (1.5-5.0); LYMPH % 19.3 % (24.0-44.0); MEAN CORPUSCULAR HEMOGLOBIN 32.3 pg (27.0-33.0); MEAN CORPUSCULAR VOLUME 104.3 fl (80.0-96.0); MONO # 0.6 10^3/uL (0.0-0.8); NEUTROPHILS # 3.8 10^3/uL (1.5-8.5); NEUTROPHILS % 66.1 % (36.0-66.0); PLATELET COUNT, AUTOMATED 191 10^3/uL (150-450); WHITE BLOOD COUNT 5.8 10^3/uL (4.0-10.0)
[2023-12-02 18:24] LABS: ERYTHROCYTE SEDIMENTATION RATE 3 mm/hr (0-20)
== END ==
LOC: M SFHCRHEU 12:59
PROVIDERS: ATTEND Internal Medicine Rheumatology
DX: M06.09 Rheumatoid arthritis without rheumatoid factor, multiple sites (principal); M15.0 Primary generalized (osteo)arthritis; R17 Unspecified jaundice; Z79.899 Other long term (current) drug therapy; D64.89 Other specified anemias

== ENCOUNTER → 2023-12-16 | Outpatient (REF) | payer MEDICARE, OTHER ==
[~2023-12-16] MED LIST changes: +FURO20TA2 PO
== END ==
LOC: M LAB REF 13:08
PROVIDERS: ATTEND Pathology Anatomic Pathology & Clinical Pathology
DX: C92.00 Acute myeloblastic leukemia, not having achieved remission (principal)

== ENCOUNTER → 2023-12-19 | Outpatient (REF) | payer MEDICARE, OTHER | LOC: M SFHCRHEU 13:35 | PROVIDERS: ATTEND Internal Medicine Rheumatology | DX: M06.09 Rheumatoid arthritis without rheumatoid factor, multiple sites (principal) ==

== ENCOUNTER → 2024-01-23 | Outpatient (REF) | payer MEDICARE, OTHER ==
[2024-01-23 12:57] LABS: HEMATOCRIT 34.3 % (42.0-52.0); MEAN CORPUSCULAR HEMOGLOBIN 32.8 pg (27.0-33.0); MEAN CORPUSCULAR HGB CONC 32.1 g/dl (32.0-36.5); MEAN CORPUSCULAR VOLUME 102.4 fl (80.0-96.0); PLATELET COUNT, AUTOMATED 176 10^3/uL (150-450); RED BLOOD COUNT 3.35 10^6/uL (4.30-6.10); WHITE BLOOD COUNT 7.8 10^3/uL (4.0-10.0)
[2024-01-23 13:02] LABS: C REACTIVE PROTEIN QUANTITATIV < 0.40 MG/DL (<1.0)
[2024-01-23 13:03] LABS: ALBUMIN 3.4 G/DL (3.2-5.2); ALKALINE PHOSPHATASE 85 U/L (46-116); ALT/SGPT 26 U/L (7.0-40); AST/SGOT 18 U/L (<34); BILIRUBIN,TOTAL 1.5 MG/DL (0.3-1.2); BLOOD UREA NITROGEN 21 MG/DL (9-23); CALCIUM LEVEL 8.4 MG/DL (8.3-10.6); CARBON DIOXIDE LEVEL 30 MMOL/L (20-31); CHLORIDE LEVEL 107 MMOL/L (98-107); CREATININE FOR GFR 1.25 MG/DL (0.70-1.30); GLOMERULAR FILTRATION RATE 58.4 (>35); GLUCOSE, FASTING 131 MG/DL (74-106); SODIUM LEVEL 140 MMOL/L (136-145); TOTAL PROTEIN 5.9 G/DL (5.7-8.2)
== END ==
LOC: M SFHCRHEU 09:18
PROVIDERS: ATTEND Internal Medicine Rheumatology
DX: M06.09 Rheumatoid arthritis without rheumatoid factor, multiple sites (principal)

== ENCOUNTER → 2024-06-24 | Outpatient (REF) | payer MEDICARE, OTHER ==
[~2024-06-24] MED LIST changes: -ADV100INH INH; +ADVA1AER8 INH; +BASA100I IM; +GABA-1172 PO; -GABA-282 PO
[2024-06-24 14:16] LABS: HEMATOCRIT 37.6 % (42.0-52.0); MEAN CORPUSCULAR HEMOGLOBIN 33.8 pg (27.0-33.0); MEAN CORPUSCULAR HGB CONC 31.9 g/dl (32.0-36.5); MEAN CORPUSCULAR VOLUME 105.9 fl (80.0-96.0); PLATELET COUNT, AUTOMATED 199 10^3/uL (150-450); RED BLOOD COUNT 3.55 10^6/uL (4.30-6.10); WHITE BLOOD COUNT 6.2 10^3/uL (4.0-10.0)
[2024-06-24 14:21] LABS: ALBUMIN 3.8 G/DL (3.2-5.2); ALKALINE PHOSPHATASE 67 U/L (40-129); ALT/SGPT 32 U/L (7.0-40); AST/SGOT 24 U/L (<34); BILIRUBIN,TOTAL 1.8 MG/DL (0.3-1.2); BLOOD UREA NITROGEN 13 MG/DL (9-23); C REACTIVE PROTEIN QUANTITATIV < 0.50 MG/DL (<1.0); CALCIUM LEVEL 8.9 MG/DL (8.3-10.6); CARBON DIOXIDE LEVEL 32 MMOL/L (20-31); CHLORIDE LEVEL 104 MMOL/L (98-107); CREATININE FOR GFR 0.93 MG/DL (0.70-1.30); GLOMERULAR FILTRATION RATE > 60.0 (>35); GLUCOSE, FASTING 139 MG/DL (74-106); POTASSIUM SERUM 4.1 MMOL/L (3.5-5.1); SODIUM LEVEL 143 MMOL/L (136-145); TOTAL PROTEIN 6.5 G/DL (5.7-8.2)
[2024-06-24 14:28] LABS: ERYTHROCYTE SEDIMENTATION RATE 2 mm/hr (0-20)
== END ==
LOC: M SFHCRHEU 09:53
PROVIDERS: ATTEND Internal Medicine Rheumatology
DX: M06.09 Rheumatoid arthritis without rheumatoid factor, multiple sites (principal)

== ENCOUNTER → 2025-02-03 | Outpatient (CLI) | payer MEDICARE, OTHER ==
[~2025-02-03] MED LIST changes: +BRIM5DRO15; +PRED-1142 PO; -PRED1TABL PO
== END ==
LOC: M WUC 13:33
PROVIDERS: ATTEND Nurse Practitioner Family
DX: R05.9 Cough, unspecified (principal); R06.02 Shortness of breath

== ENCOUNTER → 2025-03-03 | Outpatient (REF) | payer MEDICARE, OTHER ==
[2025-03-03 15:26] LABS: BASO # 0.0 10^3/uL (0.0-0.2); BASO % 0.6 % (0.0-1.0); EOS # 0.1 10^3/uL (0.0-0.5); EOS % 1.4 % (0.0-3.0); LYMPH # 1.4 10^3/uL (1.5-5.0); LYMPH % 22.6 % (24.0-44.0); MONO # 1.0 10^3/uL (0.0-0.8); MONO % 15.2 % (2.0-8.0); NEUTROPHILS # 3.8 10^3/uL (1.5-8.5); NEUTROPHILS % 58.9 % (36.0-66.0); PLATELET COUNT, AUTOMATED 192 10^3/uL (150-450)
[2025-03-03 15:32] LABS: ALT/SGPT 21 U/L (7.0-40); AST/SGOT 19 U/L (<34); C REACTIVE PROTEIN QUANTITATIV < 0.50 MG/DL (<1.0); CALCIUM LEVEL 8.5 MG/DL (8.3-10.6); CARBON DIOXIDE LEVEL 32 MMOL/L (20-31); CHLORIDE LEVEL 102 MMOL/L (98-107); CREATININE FOR GFR 1.07 MG/DL (0.70-1.30); ERYTHROCYTE SEDIMENTATION RATE 4 mm/hr (0-20); GLOMERULAR FILTRATION RATE 67.2 (>35); POTASSIUM SERUM 3.9 MMOL/L (3.5-5.1); SODIUM LEVEL 141 MMOL/L (136-145)
== END ==
LOC: M SFHCRHEU 11:05
PROVIDERS: ATTEND Internal Medicine Rheumatology
DX: M06.09 Rheumatoid arthritis without rheumatoid factor, multiple sites (principal); M15.0 Primary generalized (osteo)arthritis; R17 Unspecified jaundice; Z79.899 Other long term (current) drug therapy; D64.89 Other specified anemias

== ENCOUNTER → 2025-05-18 | Outpatient (CLI) | payer MEDICARE, OTHER ==
[~2025-05-18] MED LIST changes: -PRED1TAB69 PO; +[UNRECOGNIZED DRUG - CODE] PO
== END ==
LOC: M WUC 15:03
PROVIDERS: ATTEND Nurse Practitioner Family
DX: G89.29 Other chronic pain (principal); M25.552 Pain in left hip; M16.12 Unilateral primary osteoarthritis, left hip